=== PATIENT | female | born 1945 | race Caucasian/White ===

== ENCOUNTER 2018-04-17 10:29 | Outpatient (CLI) | payer MEDICARE | END 2018-04-17 10:30 | disposition home or self-care (01) | LOC: BICCT 10:29 | PROVIDERS: ATTEND Obstetrics & Gynecology | DX: M89.8X8 Other specified disorders of bone, other site (principal); N28.1 Cyst of kidney, acquired; I51.7 Cardiomegaly; K57.30 Diverticulosis of large intestine without perforation or abscess without bleeding; K94.09 Other complications of colostomy; R93.421 Abnormal radiologic findings on diagnostic imaging of right kidney; R93.422 Abnormal radiologic findings on diagnostic imaging of left kidney; Z90.49 Acquired absence of other specified parts of digestive tract; Z90.710 Acquired absence of both cervix and uterus | CPT/HCPCS: 74178; 82565 ==

== ENCOUNTER 2018-07-18 12:56 | Outpatient (CLI) | payer MEDICARE ==
--- NOTE | 2018-07-18 14:53 | CT ---
CT OF LUMBAR SPINE PERFORMED WITHOUT CONTRAST ENHANCEMENT: History: Low back pain right leg pain for the past 6 months. FINDINGS: The vertebral bodies are normal in height. Minimal disc narrowing is seen at L4-5. There is a spondyl olisthesis of L4 on L5 of approximately 4-5 mm with degenerative facet changes. There is no significa nt periaortic adenopathy. Vascular calcifications are noted. There is some minimal ectasia to the inf rarenal aorta but the maximum AP measurement is only 2.5 cm. T12-L1: Unremarkable. L1-2: Unremarkable. L2-3: Some disc bulge is present at this level. No significant canal or foraminal stenosis. L3-4: Mild disc bulge with borderline canal stenosis. Degenerative facet changes are present. L4-5: There is a mild degree of canal stenosis caused by the combination of degenerative facet and li gamentous hypertrophic changes and disc bulging and spondylolisthesis. L5-S1: No significant canal or foraminal narrowing. IMPRESSION: 4-5 mm spondylolisthesis of L4 on L5 causing a mild degree of canal narrowing. No significant foramin al stenosis is appreciated. POS: [facility]
== END 2018-07-18 12:57 | disposition home or self-care (01) ==
LOC: BICCT 12:56
PROVIDERS: ATTEND Nurse Practitioner Family
DX: M48.062 Spinal stenosis, lumbar region with neurogenic claudication (principal); M43.16 Spondylolisthesis, lumbar region
CPT/HCPCS: 72131

== ENCOUNTER 2018-08-23 12:21 | Inpatient (IN) | payer MEDICARE ==
[2018-08-23] MEDS ORDERED: Lisinopril 10 MG TAB ONE (13:15)
--- NOTE | 2018-08-23 15:18 | RAD ---
TWO VIEWS LEFT HIP: DATE: 08/23/2018. HISTORY: Left hip pain after a fall. FINDINGS: There is partial visualization of the right hip. There is evidence of bilateral hip osteoarthritis w ith narrowing of the superomedial aspects of each joint space. No obvious fracture is seen, and ther e is no evidence of a dislocation. Partida catheter is present in the urinary bladder, and contrast is also partially seen within the urinary bladder. Temperature probe was noted in place. Surgical cli ps overlie the left hemipelvis and medial right thigh. Vascular calcifications are seen within the i liac and femoral arteries. Findings are similar to the study on 04/08/2018. IMPRESSION: 1. Bilateral hip osteoarthritis. 2. No obvious fracture or dislocation is seen involving the left hip. POS: [facility]
[2018-08-23 17:23] LABS: Bilirubin Negative (Negative); Blood, Urine Small (Negative); Clarity CLEAR (Clear); Glucose, Urine (Dipstick) Negative (Negative); Leukocyte Moderate (Negative); Nitrite Negative (Negative); Protein, Urine (Dipstick) Negative (Neg-Trace); pH, Urine 6.5 (5.0-9.0)
[2018-08-23 17:28] LABS: Bacteria/HPF 1+ HPF (None Seen); Hyaline Casts/LPF 4-6 HYALINE CAST LPF (0-3 Hyaline); Pathc Cast-AUWi Flag 1.01 (0-2.49); Squamous Epithelial None Seen HPF (0-3)
[2018-08-23 17:32] LABS: Specific Gravity, Urine 1.053 (1.002-1.036)
--- NOTE | 2018-08-23 18:04 | RAD ---
CHEST ONE VIEW: 08/23/18 HISTORY: Chest pain. Fall with chest contusion. COMPARISON: Radiograph 02/25/10. FINDINGS: Heart size is enlarged. No pneumothorax. No large effusion. Mild contour irregularity of the right lateral 7th and 8th ribs are indeterminate for a fracture. IMPRESSION: 1. Marked cardiomegaly. 2. Right lateral 7th and 8th rib cortical irregularity are indeterminate for fracture. Clinical correlation with underlying tenderness is recommended. No evidence for pulmonary contusion, pneumotho rax or layering effusion. POS: [facility]
--- NOTE | 2018-08-23 19:14 | PRG ---
DATE OF SERVICE: 08/23/2018 SUBJECTIVE: The patient was seen in conjunction with Rebecca Reynolds. This patient was initially presenting to emergency department in [place]. The patient apparently fell this morning and her found her on the floor and she was unable to get up. She had a contusion to her chest and the ambulance was called. The patient was taken to the emergency department in [place], where she appeared to have significant left-sided neglect and left lateral gaze dysfunction. She had a CT scan of the head as well as CT angiogram, both of which were negative for major acute findings other than some lacunar infarctions of indeterminate age. The patient was subsequently transferred to this facility. The patient remains somewhat encephalopathic. She is able to answer some questions, but appears confused. She continues to have left lateral gaze deficit. She also appears to have at least distal muscle dysfunction on the left upper extremity, although she is able to move it proximally. She has poor coordination over that arm. She has inability to follow commands adequately to really assess her lower extremity function or her visual romo. Of note, the patient did have a possible kink in her right posterior vertebral artery without evidence of occlusion and this appeared to be more distal. The patient has some ecchymoses on her chest and her left upper extremity, a small skin tear on left forearm. The patient has a history of multiple chronic medical problems including mitral valve replacement, coronary artery disease with triple bypass and pacemaker placement with defibrillator in 2018. She has hypertension, COPD, reflux, and gout. At this point, it appears the patient had acute stroke with left-sided deficits and she is a bit encephalopathic. She apparently takes aspirin, although her actual medication list is not known, that was mentioned in her note from [place]. She received aspirin and lisinopril in the emergency department here. Given the extent of her deficits and her encephalopathy, prefer she be in the IMCU for now. We will try to obtain an MRI if we can with the defibrillator that is in place and we will consult Neurology. The patient will need echocardiogram as well. I am trying to get more information on the patient's medications, having some difficulty dialing out to her at this time. We will continue to try. Job ID: [id number]
[2018-08-23] MEDS ORDERED: cefTRIAXone\\ROCEPHIN 1 GM in Sodium Chloride 0.9% 100 ML IVPB SCH (20:00)
[2018-08-23] MEDS ORDERED: cefTRIAXone\\ROCEPHIN 1 GM VIAL ONE (20:09)
[2018-08-23] MEDS ORDERED: VANC IVPB PRN (22:30)
[2018-08-23] MEDS ORDERED: MERREM IVPB PRN (22:30)
[2018-08-23 23:19] VITALS: BMI 26.5
[2018-08-23] MEDS: Famotidine 20 MG TAB PO SCH (23:50)
[2018-08-23] MEDS: Vancomycin HCl 1 GM in Premix Bag 1 BAG IVPB SCH (23:56)
[2018-08-23] MEDS: Sodium Chloride 0.9% 1,000 ML IV SCH (23:58)
[2018-08-24] MEDS: MEROPENEM 1 GM/50 ML 1 GM in Premix Bag 1 BAG IVPB SCH ×2 (00:01→13:52)
--- NOTE | 2018-08-24 02:04 | HP ---
PRIMARY CARE PHYSICIAN: Gaby Humphries MD. CHIEF COMPLAINT: Left-sided facial droop, left-sided deficits. HISTORY OF PRESENT ILLNESS: Ms. Lim is a 73-year-old female, who was initially seen in the emergency room at [place] after she apparently fell this morning and her had found her on the floor and she was unable to get up. She does have some multiple contusions onto her chest, some to her face, some to left arm. She was taken to the emergency room by EMS in [place] where she appeared to have significant left-sided neglect, left lateral gaze dysfunction. She had a CT scan of the head and a CT angiogram, both were negative for major acute findings other than some lacunar infarctions of indeterminate age. The patient was then transferred to [facility] Emergency Room for admission and further management. The patient remains somewhat encephalopathic. She is able to answer questions. She is oriented to person, place, and time. She does appear somewhat confused. She continued to have left lateral gaze deficit. She has distal muscle dysfunction of the left upper extremity, although she is able to move it proximally. She does have poor coordination of that arm. She has difficulty following commands, difficult to assess her lower extremities. Visual romo; she has some deficits on the left, although it was difficult to assess the extent of dysfunction. The patient does have extensive ecchymosis on her chest, left upper extremity, and her face. She does have small skin tear on her left arm. The patient does have pertinent medical history which includes mitral valve replacement, coronary artery disease with triple bypass, pacemaker placement with defibrillator, this was done in 2018. Also pertinent for hypertension, COPD, GERD, and gout. Based on presentation, risk factors, obvious left-sided deficits, left lateral gaze deficits, she will be admitted to the [facility] for further management. PAST MEDICAL HISTORY: As above. Pertinent for gout, high cholesterol, hypertension, CAD, COPD, CHF, and GERD. PAST SURGICAL HISTORY: Positive for mitral valve replacement in 08/2017, bilateral knee replacements, rectocele, triple bypass, pacemaker defibrillator in 2018, appendectomy, hysterectomy, and tubal ligation. SOCIAL HISTORY: The patient denies any alcohol use or drug use. The patient currently uses tobacco, smokes about half a pack a day per ER records. Family at bedside. Dr. White did try to call the , was not able to get him on the phone to get a complete medical history to verify past medical history. We will continue to try to get this information. It is noted in the note in the [place] ER record that she is on Plavix. ALLERGIES: CODEINE AND MORPHINE. REVIEW OF SYSTEMS: CONSTITUTIONAL: The patient denies chills or fever. HEENT: Eyes, eye pain. The patient denies visual changes. ENT; denies rhinorrhea, sore throat, or voice changes. CARDIOVASCULAR: Denies chest pain or palpitations. RESPIRATORY: Denies cough or shortness of breath. GI: Denies any abdominal pain, constipation, diarrhea, or nausea. : Denies dysuria or frequency. MUSCULOSKELETAL: Denies back pain. She denies fall, but the patient did fall prior to presenting to the emergency room at [place]. SKIN: Does report bruising. NEUROLOGIC: Reports left-sided facial droop, left-sided motor and sensory deficits. PHYSICAL EXAMINATION: VITAL SIGNS: Blood pressure is 155/88, pulse is 89, respiratory rate is 20, temperature is 98.8, O2 saturation is 98% on room air. CONSTITUTIONAL: The patient appears nontoxic. She is alert and oriented to person, place, and time. HEAD: Normocephalic. Does have some ecchymoses to her face. EYES: Pupils are equally round and reactive to light. Entire left visual field deficit. ENT, pharynx exam is normal. Tonsil exam is normal. Mouth exam is normal. Mucous membranes are moist. NECK: Trachea is midline. No tenderness. RESPIRATORY/CHEST: Breath sounds are clear. No findings or respiratory distress. CARDIOVASCULAR: Regular rate and rhythm. Heart sounds are normal. ABDOMEN: Female. No tenderness on palpation. Bowel sounds are heard. BACK: Normal inspection. Normal range of motion. EXTREMITIES: Upper extremity motor strength is 3/5 on the left, 5/5 on the right. Radial pulses equal bilaterally. Lower extremity motor strength is 4/5 on the left, 5/5 on the right. NEUROLOGIC: The patient is oriented to person, place, and time. Speech is normal. Does appear confused intermittently. Left visual field defect mild left facial droop, 3/5 over left upper extremity strength and 4/5 left lower extremity strength, left lateral gaze deficit. SKIN: Multiple areas of ecchymosis to chest, left arm, face. Otherwise, warm and dry. No rashes noted. PERTINENT LABORATORY DATA: The patient does have a urinalysis that was conducted, specific gravity 1.053, small amount of blood, leuko esterase moderate, white blood cell count greater than 50, urine bacteria +1. This was sent off for culture. IMPRESSION: Marked cardiomegaly into right lateral seventh and eighth rib cortical irregularity. The patient has cervical spine CT, which showed motion artifact degrades detail of exam. No evidence of her fracture. Patent bilateral vertebral arteries, prominent kink involving distal right vertebral artery lacunar infarctions in each basal ganglia of indeterminate age. No focal stenosis or branch occlusion involving the [place] of [place] with vertebrobasilar system. Left hip x-ray, bilateral hip osteoarthritis. No obvious fracture. Hematology; white blood cell count is 10.6, hemoglobin is 12.5, hematocrit is 38.7, platelet count is 256. Coagulation; PT 12.9, INR is 1. Chemistry; sodium 141, potassium 4.5, chloride 107, BUN is 16, creatinine is 1.01, estimated GFR 54, glucose 114. Liver enzymes are unremarkable. Troponin x1 is undetectable. ASSESSMENT AND PLAN: 1. Left-sided deficits, left-sided mouth droop, left lateral gaze defect. We will obtain an MRI if compatible with her current pacemaker. We will ask Neurology to consult due to the fact that she is on Plavix. The patient will be placed on IMCU for close monitoring. CT of the head may need to be repeated if the patient has any changes in mental status. We will obtain an echocardiogram. 2. Urinary tract infection. We will start Rocephin. We will continue to monitor lab work. 3. We will continue to attempt to obtain the patient's home medication regimen. Hospital course will depend on clinical findings. Job ID: [id number]
[2018-08-24 04:53] LABS: #Eosinphils 0.1 thou/uL (0.0-0.7); #Lymphocytes 1.6 thou/uL (1.20-3.40); #Monocytes 0.8 thou/uL (0.11-0.59); #Neutrophils 4.5 thou/uL (1.40-6.50); %Basophils 0.3 % (0.0-1.0); %Eosinophils 1.5 % (0.0-10.0); %Lymphocytes 22.7 % (21.0-51.0); %Monocytes 10.9 % (0.0-10.0); %Neutrophils 64.6 % (42.0-75.0); Hemoglobin 11.6 g/dL (12.0-16.0); Mean Corpuscular HGB CONC 32.7 g/dL (32.0-36.0); Mean Corpuscular Hemoglobin 29.9 pg (27.0-31.0); Mean Corpuscular Volume 91.5 fL (78.0-98.0); Mean Platelet Volume 9.5 fL (7.4-10.4); Platelet Count 227 thou/uL (130-400); RBC Distribution Width 17.3 % (11.5-14.5); Red Blood Cell (RBC) Count 3.87 mill/uL (4.20-5.40); White Blood Cell (WBC) Count 6.9 thou/uL (4.8-10.8)
[2018-08-24 05:22] LABS: ALT (SGPT) 11 U/L (8-55); AST (SGOT) 15 U/L (5-34); Albumin 3.4 g/dL (3.4-4.8); Alkaline Phosphatase 120 U/L (40-150); Anion Gap 12 mmol/L (10-20); BUN (Urea Nitrogen) 11 mg/dL (9.8-20.1); Bilirubin, Total 0.7 mg/dL (0.2-1.2); Calc. Creatinine Clearance 69 mL/min (70-130); Calcium 9.6 mg/dL (7.8-10.44); Carbon Dioxide 23 mmol/L (23-31); Chloride 108 mmol/L (98-107); Cholesterol 141 mg/dl (< 200 Desired); Estimated GFR-MDRD 67; Globulin 3.2 g/dL (2.4-3.5); Glucose 95 mg/dL (83-110); HDL Cholesterol 28 mg/dL (>60 Neg Risk); LDL Cholesterol, Calculated 95 mg/dL; Potassium 3.9 mmol/L (3.5-5.1); Protein, Total 6.6 g/dL (6.0-8.3); Sodium 139 mmol/L (136-145); Triglycerides 89 mg/dL (Less than 150)
[2018-08-24] MEDS ORDERED: Aspirin 325 mg Enteric Coated Tablet PO SCH (09:00)
[2018-08-24] MEDS: Famotidine 20 MG TAB PO SCH (09:20)
[2018-08-24] MEDS: Pantoprazole 40 MG VIAL IVP SCH (09:21)
[2018-08-24] MEDS ORDERED: Aspirin 300 MG Suppository PR SCH (09:30)
--- NOTE | 2018-08-24 09:46 | PRG ---
DATE OF SERVICE: 08/24/2018 SUBJECTIVE: The patient continues to be somewhat encephalopathic, not able to answer much, although she does say hello and say that she feels fine. She cannot get much more from her than that. OBJECTIVE: VITAL SIGNS: Temperature 98.4, pulse 110 to 114, respirations 18, O2 saturation 94% on room air, and BP is 141/60. GENERAL APPEARANCE: Age-appropriate female. She is in no distress. She continues to have some spontaneous movement almost ballistic type on the left side. She appears to be breathing comfortably. HEENT: Pupils are reactive. HEART: Regular, tachycardic without murmur. LUNGS: Clear bilaterally, although she is not able to take good breaths on command. ABDOMEN: Soft, nontender, and nondistended. Positive bowel sounds. EXTREMITIES: Several areas of ecchymoses, especially on the left without significant edema. NEUROLOGICAL: The patient is encephalopathic. She has left lateral gaze defect and some left-sided neglect. She has some proximal muscle movement on the left upper extremity, but not distally. She is able to move her left lower extremity with a small amount with stimulation. LABORATORY DATA: White count 6.9, hemoglobin 11.6. Sodium 139, potassium 3.9, chloride 108, CO2 is 23, BUN 11, creatinine 0.8, and glucose 95. Lactic acid 1.6. AST 15, ALT 11. LFTs otherwise normal. TSH is 3.24. Total cholesterol 141, triglycerides 89, LDL 95. HDL 28. Urinalysis as above as, as the previous H and P indicate white count greater than 50,000 with 1+ bacteria, moderate leukocyte esterase. Blood cultures in progress. IMPRESSION AND PLAN: 1. Acute cerebrovascular accident with left lateral gaze defect and some left-sided weakness and encephalopathy. The patient has an MRI scheduled for today. I ensure that she will be able to complete that because I am sure she will be able to be still enough to get that done. Neurology consult is pending. The patient appears to be largely unchanged from last evening. I did attempt to talk to her, I tried to call her last night, got busy signals this morning, got a answering machine, hoping that he is on his way here now. 2. Dysphagia. The patient failed swallow study this morning. We will consult Speech Therapy. 3. Tachycardia, unclear etiology, likely related to the stroke itself. We will get an EKG, unclear what medications the patient was on previously. There is nothing in the record to help us other than the fact that her note from [facility] indicated she was on Plavix. I have not been able to reach her at this point, and the patient is unable to give us any additional history. 4. Fall with facial impact given the patient was on Plavix. If she were to acutely worsen, we would get an emergent repeat CT, but at this point, she appears to be otherwise stable. We will wait for Neurology and MRI. 5. Urinary tract infection. The patient was started on vancomycin and meropenem last evening, those alternatives will continue those for now. Job ID: [id number]
[2018-08-24] MEDS: Sodium Chloride 0.9% 1,000 ML IV SCH (15:18)
--- NOTE | 2018-08-24 17:53 | CON ---
DATE OF CONSULTATION: 08/24/2018 REASON FOR CONSULTATION: IMC placement. HISTORY OF PRESENT ILLNESS: The patient is a 73-year-old female who is currently in the hospital for a stroke with left-sided facial droop, expressive aphasia, and global left-sided deficit. She initially presented to the emergency room at [place] yesterday after falling to the floor and unable to get up. She was noted to have bruising on her chest. I do not think she was given tPA because of the timing. She has been started on Plavix. She is currently undergoing neurology workup including repeat CT later today. She cannot give me any history at the current time. PAST MEDICAL HISTORY: 1. Coronary artery disease. 2. COPD. 3. CHF. 4. Gastroesophageal reflux. PAST SURGICAL HISTORY: Mitral valve replacement, bilateral knee replacements, coronary artery bypass grafting surgery, pacemaker/defibrillator placement, appendectomy, hysterectomy, tubal ligation. SOCIAL HISTORY: Does not consume alcohol. She smokes about half pack per day. ALLERGIES: CODEINE, MORPHINE. FAMILY MEDICAL HISTORY: Unremarkable. REVIEW OF SYSTEMS: Not obtainable as the patient is aphasic. MEDICATIONS: As an outpatient, she was taking Dulera, atorvastatin, torsemide, amitriptyline, Aldactone, Protonix, Synthroid, iron, Plavix, aspirin, Toprol, and albuterol, and the patient is taking aspirin, Pepcid, meropenem, pantoprazole, and vancomycin. PHYSICAL EXAMINATION: VITAL SIGNS: Temperature 97.8, pulse 97, respirations 20, O2 saturation 91% on room air, blood pressure 133/74. GENERAL: She is a disheveled-appearing patient, in no distress. She cannot speak, although she tries. HEENT: She has left facial droop. NECK: No JVD. LUNGS: Clear. CARDIAC: S1, S2. Regular. ABDOMEN: Soft. EXTREMITIES: She cannot move her left arm or leg. LABORATORY DATA: White blood cell count 6.9, hematocrit 35.4, and platelet count 227. Sodium 139, potassium 3.9, chloride 108, CO2 of 23, BUN 11, creatinine 0.8, glucose 95. ASSESSMENT: Cerebrovascular accident with profound residual deficits. PLAN: Care as per the primary team. The patient is currently on antibiotics. The reasoning is not clear to me, but I will speak with the primary team about that. No further Pulmonary recommendations, we will follow. Job ID: [id number]
[2018-08-24] MEDS: Famotidine/PF 20 mg/2ml Vial SLOW IVP SCH (20:46)
--- NOTE | 2018-08-24 22:21 | CON ---
DATE OF CONSULTATION: 08/24/2018 REASON FOR REFERRAL: Left-sided weakness. PRESENT ILLNESS: This is a 73-year-old female whose found her on the floor, unable to get up. He states that she did not seem to be any more confused than usual. He states that she was conscious when he found her. He did not actually witness the fall. He noted that she seem to be weak on the left side. He also had noted that she seem to look more to the left than to the right, he says that is usual for her. She was seen at an outside hospital and transferred to [facility]. Her chronic medical problems include coronary artery disease, pacemaker and defibrillator, COPD, GERD, and gout. PAST MEDICAL HISTORY: She has high cholesterol, coronary artery disease, CHF, GERD, COPD, and hypertension and has had a triple bypass and pacemaker defibrillator. SOCIAL HISTORY: She does not drink alcohol. She smokes about half a pack per day. She is . REVIEW OF SYSTEMS: 14-point review of systems is negative except for the present illness. PHYSICAL EXAMINATION: GENERAL: She is awake, somewhat confused. VITAL SIGNS: Temperature is 97.8, pulse is 97 and regular, respiratory rate is 20, O2 saturation is 91% on room air, blood pressure 134/74. HEENT: Negative. LUNGS: Clear. HEART: No gallops. ABDOMEN: She has a colostomy. EXTREMITIES: No clubbing, cyanosis, or edema. SKIN: No rashes. JOINTS: No swelling. NEUROLOGIC: She is awake. She says she is in [place], she cannot tell me what year it is or her age. She occasionally follows commands, but is inconsistent. Cranial nerves 2 through 12 tested normally except for slight weakness of the lower left side of the face and she has a prominent left gaze preference. Motor, she moves all extremities, but not to command. She moves the right side at least antigravity strength and the left side less than that. DTRs are 2+. Toes are downgoing except the left appears to be upgoing. Sensation is grossly intact. CT of the head performed at the outside hospital is reported to be negative. IMPRESSION: Status post CVA, notes a prominent left gaze preference. We are unable to obtain MRI due to her pacemaker defibrillator. PLAN: We will get a followup CT of the head. Discussed with the patient's and discussed with patient's nurse. Job ID: [id number] MTDD
[2018-08-24] MEDS: Vancomycin HCl 1 GM in Premix Bag 1 BAG IVPB SCH (23:27)
[2018-08-24] MEDS ORDERED: Acetaminophen 1,000 MG in Premix Bag 1 BAG IVPB SCH (23:30)
[2018-08-25] MEDS: MEROPENEM 1 GM/50 ML 1 GM in Premix Bag 1 BAG IVPB SCH (00:48)
[2018-08-25 05:32] LABS: #Basophils 0.1 thou/uL (0.0-0.2); #Eosinphils 0.2 thou/uL (0.0-0.7); #Lymphocytes 1.2 thou/uL (1.20-3.40); #Monocytes 0.7 thou/uL (0.11-0.59); #Neutrophils 3.5 thou/uL (1.40-6.50); %Basophils 1.2 % (0.0-1.0); %Eosinophils 3.3 % (0.0-10.0); %Monocytes 11.7 % (0.0-10.0); %Neutrophils 61.9 % (42.0-75.0); Hemoglobin 11.3 g/dL (12.0-16.0); Mean Corpuscular Hemoglobin 30.2 pg (27.0-31.0); Mean Corpuscular Volume 91.6 fL (78.0-98.0); Mean Platelet Volume 9.8 fL (7.4-10.4); Platelet Count 214 thou/uL (130-400); RBC Distribution Width 16.8 % (11.5-14.5); Red Blood Cell (RBC) Count 3.75 mill/uL (4.20-5.40); White Blood Cell (WBC) Count 5.6 thou/uL (4.8-10.8)
[2018-08-25 05:47] LABS: ALT (SGPT) 8 U/L (8-55); AST (SGOT) 14 U/L (5-34); Alkaline Phosphatase 105 U/L (40-150); Anion Gap 11 mmol/L (10-20); BUN (Urea Nitrogen) 12 mg/dL (9.8-20.1); Bilirubin, Total 0.6 mg/dL (0.2-1.2); Calc. Creatinine Clearance 70 mL/min (70-130); Calcium 9.3 mg/dL (7.8-10.44); Carbon Dioxide 23 mmol/L (23-31); Chloride 109 mmol/L (98-107); Estimated GFR-MDRD 68; Glucose 87 mg/dL (83-110); Potassium 3.9 mmol/L (3.5-5.1); Sodium 139 mmol/L (136-145)
[2018-08-25] MEDS ORDERED: Metoprolol Tartrate 5 MG/5 ML VIAL IVP SCH (09:00)
[2018-08-25] MEDS: Sodium Chloride 0.9% 1,000 ML IV SCH (10:01)
[2018-08-25] MEDS: Aspirin 300 MG Suppository PR SCH ×2 (10:01→14:08)
[2018-08-25] MEDS: Pantoprazole 40 MG VIAL IVP SCH (10:01)
[2018-08-25] MEDS: Famotidine/PF 20 mg/2ml Vial SLOW IVP SCH ×2 (10:01→21:47)
--- NOTE | 2018-08-25 10:14 | CT ---
CT HEAD NONCONTRAST DATE: 08/25/18 HISTORY: Altered mental status. COMPARISON: 08/23/18. FINDINGS: There is no evidence of acute intracranial hemorrhage or infarct. Prominent chronic ischemic small ve ssel disease throughout the periventricular white matter is similar in appearance to the prior study. Lacunar infarct right twila is stable. No mass effect or shift of midline structures. IMPRESSION: Chronic-type findings are stable. No acute intracranial abnormalities are demonstrated. POS: [facility]
--- NOTE | 2018-08-25 13:17 | PRG ---
DATE OF SERVICE: 08/25/2018 SUBJECTIVE: This patient is better. She is now verbalizing, has no complaints. She seems to have completely recovered all of her neurologic deficit except for slight left facial droop. OBJECTIVE: VITAL SIGNS: On exam, temperature is 97.2, pulse 100, respirations 18, O2 sat 99% on 2 L, and blood pressure 153/93. HEENT: Unremarkable. NECK: No JVD. LUNGS: Clear. CARDIAC: S1 and S2, regular. ABDOMEN: Soft. EXTREMITIES: No edema. LABORATORY DATA: Significant for hematocrit of 34.4 and platelet count 214. Chloride level of 109, otherwise it looks normal. ASSESSMENT: Stroke with resolution of most of the deficit. PLAN: This patient is stable for transfer out to the stroke unit. Job ID: [id number]
[2018-08-25] MEDS ORDERED: Aspirin 325 MG TAB PO SCH (14:15)
[2018-08-25] MEDS ORDERED: Metoprolol Tartrate 5 MG/5 ML VIAL ONE (16:32)
--- NOTE | 2018-08-25 16:57 | PRG ---
DATE OF SERVICE: 08/25/2018 SUBJECTIVE: The patient is much more awake today. She denies any specific complaints and she denies any pain in her chest. She does not recall meeting me. Her sister and [id number] are in the room with her today. Her sister tells me that the patient and her live very remotely and have not allowed any family members to come visit them in a number of years. They also report that 6 months ago, the patient was doing well, but recently has been having a lot of falls that have become problematic. The nurse also reports that the patient's presented today and had a strong odor of urine and indicated that they have a number of cats in their home. OBJECTIVE: VITAL SIGNS: Temperature is 98.0, pulse 109, respirations 19, O2 saturation 98% on room air, and blood pressure 165/85. GENERAL APPEARANCE: Age-appropriate female. She is definitely much more awake and alert today. She is actually conversant and interactive. She is largely appropriate in her conversation, but wants to talk about issues from months ago and has a difficult time with redirection. Her sister reports that she feels like she is only about longterm back to her normal self at this time. HEENT: PERRL. She has no OP lesions. Small bruise on the right lateral upper lip. HEART: Regular rate and rhythm. She is mildly tachycardic. She has ecchymoses over her chest area. LUNGS: Clear bilaterally. ABDOMEN: Soft, nontender, and nondistended. Positive bowel sounds. MUSCULOSKELETAL: She has no cyanosis, clubbing, or edema. She does have slight tenderness to palpation on her chest area, especially over the right anterior rib cage. NEURO: The patient actually has pretty good cognition, although not normal. She has good range of motion and strength in her left upper extremity and in her left lower extremity, which are a significant improvement. Her extraocular movements are generally back to normal range as well. Repeat brain CT from this morning shows chronic findings with no acute stroke. There are lacunar infarcts in the right twila, which appear to be stable and small vascular disease. IMPRESSION AND PLAN: 1. The patient appeared to have acute stroke with significant deficits, which appear to be largely resolved at this point. She just has some persistent confusion, but the encephalopathy portion appears to be much improved. She had an EEG this morning and Neurology continues to follow. She has passed her swallow study today and we resumed statins and aspirin and Plavix along with her other medications. 2. History of prosthetic heart valve. Continue Plavix and aspirin. 3. Hypothyroidism. Continue with the Synthroid. 4. Dysphagia, resolved. 5. Tachycardia. The patient is on high doses of metoprolol at home, now that she is on p.o., so we will go ahead and resume that as we gave her IV Lopressor as needed throughout the day today. 6. Fall with facial impact. She has no evidence of intracranial bleeding. She does have some mild chest trauma. Continue with Plavix and aspirin. We will continue with physical therapy. 7. Urinary tract infection. The patient grew relatively low counts of Klebsiella oxytoca. It is not clear if this represents true infection. She has had some pretty broad-spectrum antibiotics. We will go ahead and discontinue those now. 8. Disposition. It sounds like there is some concern for the patient's home situation per the family. We will need Case Management/Social Work to get involved and see if we can elucidate that situation better. Job ID: [id number]
--- NOTE | 2018-08-25 17:55 | PRG ---
DATE OF SERVICE: 08/25/2018 NEUROLOGY FOLLOWUP NOTE. PRESENT ILLNESS: Followup for altered mental status. Her is present. He states that she is back to her normal self today. She is no longer having the gaze preference to the left side and she is moving all extremities. She is currently undergoing an EEG. PHYSICAL EXAMINATION: VITAL SIGNS: Temperature 98, pulse is 109, respiratory rate 19, O2 saturations 98, and blood pressure 165/85. HEENT: Negative. Motor, she moves all extremities well. DTRs 2+. LUNGS: Clear. HEART: Regular. Note that she has a pacemaker and a defibrillator. DIAGNOSTIC STUDIES: She had an EEG, which she is undergoing right now and it does not show any seizure activity. A CAT scan of her head without contrast shows extensive chronic small-vessel disease and old strokes, no acute strokes were seen. Note that the patient has a pacemaker and defibrillator and cannot have an MRI. IMPRESSION: Status post suspected small stroke, which gave her a left gaze preference. She has now resolved. Alternatively, it may have been a seizure; however, we do not have any clear evidence that it was a seizure, there was no tongue biting or incontinence associated with this, and when she was found by her , she was awake. PLAN: We will treat her as a small CVA. No MRI because of her pacemaker. Continue with the one aspirin a day and Plavix. Discussed with the patient and her . No further neurologic recommendations at this time. Please call the neurologist on-call tomorrow if there is any further neurological input required. Job ID: [id number]
[2018-08-25 22:38] LABS: Vancomycin, Trough 10.3 ug/mL
[2018-08-26] MEDS: Sodium Chloride 0.9% 1,000 ML IV SCH ×2 (02:04→17:24)
[2018-08-26] MEDS: Levothyroxine 175 MCG TAB PO SCH (05:29)
[2018-08-26 05:59] LABS: #Eosinphils 0.3 thou/uL (0.0-0.7); #Monocytes 0.9 thou/uL (0.11-0.59); #Neutrophils 7.7 thou/uL (1.40-6.50); %Basophils 0.1 % (0.0-1.0); %Eosinophils 2.7 % (0.0-10.0); %Lymphocytes 10.4 % (21.0-51.0); %Monocytes 8.6 % (0.0-10.0); %Neutrophils 78.3 % (42.0-75.0); Hemoglobin 12.6 g/dL (12.0-16.0); Mean Corpuscular HGB CONC 32.1 g/dL (32.0-36.0); Mean Corpuscular Hemoglobin 29.8 pg (27.0-31.0); Mean Corpuscular Volume 92.7 fL (78.0-98.0); Mean Platelet Volume 9.2 fL (7.4-10.4); Platelet Count 255 thou/uL (130-400); RBC Distribution Width 16.6 % (11.5-14.5); Red Blood Cell (RBC) Count 4.22 mill/uL (4.20-5.40); White Blood Cell (WBC) Count 9.9 thou/uL (4.8-10.8)
[2018-08-26 06:23] LABS: ALT (SGPT) 13 U/L (8-55); AST (SGOT) 19 U/L (5-34); Albumin 3.6 g/dL (3.4-4.8); Alkaline Phosphatase 126 U/L (40-150); Anion Gap 13 mmol/L (10-20); BUN (Urea Nitrogen) 9 mg/dL (9.8-20.1); Bilirubin, Total 0.8 mg/dL (0.2-1.2); Calc. Creatinine Clearance 72 mL/min (70-130); Calcium 9.6 mg/dL (7.8-10.44); Carbon Dioxide 20 mmol/L (23-31); Chloride 109 mmol/L (98-107); Estimated GFR-MDRD 70; Glucose 155 mg/dL (83-110); Protein, Total 6.6 g/dL (6.0-8.3); Sodium 138 mmol/L (136-145)
--- NOTE | 2018-08-26 09:06 | PDOC.PN ---
- Subjective Encounter Start Date: 08/26/18 Encounter Start Time: 13:30 Subjective: Patient without complaint. Pleasantly confused though this may be her -: baseline. - Objective MAR Reviewed: Yes Vital Signs & Weight: Vital Signs (12 hours) Temp Pulse Resp BP Pulse Ox 08/26/18 07:34 97.4 F L 111 H 20 179/109 H 90 L 08/26/18 04:00 98.6 F 103 H 18 185/88 H 92 L 08/26/18 03:48 94 L 08/26/18 00:00 98.2 F 108 H 18 178/91 H 94 L Weight Admit Weight 159 lb 6.4 oz Weight 159 lb 6.4 oz I&O: 08/25/18 08/26/18 08/27/18 06:59 06:59 06:59 Intake Total 1750 2300 Output Total 375 2270 Balance 1375 30 Result Diagrams: 08/26/18 05:42 08/26/18 05:42 Phys Exam - Physical Examination Constitutional: NAD HEENT: moist MMs Respiratory: no wheezing, no rales, no rhonchi Cardiovascular: RRR, no significant murmur Gastrointestinal: soft, positive bowel sounds Neurological: non-focal, moves all 4 limbs No longer neglecting left side Psychiatric: normal affect Deviation from normal: oriented to person, confused to location and date Dx/Plan (1) CVA (cerebral vascular accident) Code(s): I63.9 - CEREBRAL INFARCTION, UNSPECIFIED Status: Acute (2) Recurrent falls Code(s): R29.6 - REPEATED FALLS Status: Acute (3) Hx of prosthetic heart valve Status: Chronic Comment: Mitrial Valve Replacement (4) CAD (coronary artery disease) Code(s): I25.10 - ATHSCL HEART DISEASE OF [place] CORONARY ARTERY W/O ANG PCTRS Status: Chronic Comment: Hx of CABG, Hx of Pacemaker and Defibrillator (5) Hypertension Code(s): I10 - ESSENTIAL (PRIMARY) HYPERTENSION Status: Chronic Comment: Allowing permissive hypertension, prn for severe elevations, home Metoprolol and diuretics restarted already (6) COPD (chronic obstructive pulmonary disease) Status: Chronic (7) GERD (gastroesophageal reflux disease) Code(s): K21.9 - GASTRO-ESOPHAGEAL REFLUX DISEASE WITHOUT ESOPHAGITIS Status: Chronic (8) Gout Code(s): M10.9 - GOUT, UNSPECIFIED Status: Chronic (9) UTI (urinary tract infection) Status: Acute Comment: Antibiotics completed (10) Tachycardia Code(s): R00.0 - TACHYCARDIA, UNSPECIFIED Status: Acute Comment: Patient tachycardic since admit, EKG shows paced rhythm atrial and ventricular spikes. Will have pacemaker inspected as may be the source of the tachycardia. - Plan cont current plan of care, PT/OT, DVT proph w/SCDs Patient stable for rehab vs. SNF * . - Discharge Day Encounter end time: 14:00 Pulmonology Consult: Meds - Medications MAR Reviewed: Yes Medications: Current Medications Aspirin (Aspirin Chewable) 81 mg PO DAILY [facility] Atorvastatin Calcium (Lipitor) 80 mg PO DAILY [facility] Clopidogrel Bisulfate (Plavix) 75 mg PO DAILY [facility] Famotidine (Pepcid) 20 mg SLOW IVP BID [facility] Last Admin: 08/25/18 21:47 Dose: 20 mg Sodium Chloride (Normal Saline 0.9%) 1,000 mls @ 60 mls/hr IV .[id number] [facility] Last Admin: 08/26/18 02:04 Dose: 1,000 mls Levothyroxine Sodium (Synthroid) 175 mcg PO 0600 [facility] Last Admin: 08/26/18 05:29 Dose: 175 mcg Metoprolol Succinate (Toprol Xl) 100 mg PO BID [facility] Last Admin: 08/25/18 21:47 Dose: 100 mg Miscellaneous Medication (Pharmacy To Dose) 1 each IVPB PRN PRN PRN Reason: UTI Pantoprazole Sodium (Protonix) 40 mg PO DAILY [facility] Sodium Chloride (Flush - Normal Saline) 10 ml IVF PRN PRN PRN Reason: Saline Flush - Allergies Allergies/Adverse Reactions: Allergies Allergy/AdvReac Type Severity Reaction Status Date / Time codeine Allergy Verified 08/23/18 23:12 morphine Allergy Verified 08/23/18 23:12
[2018-08-26] MEDS: Clopidogrel Bisulfate 75 MG TAB PO SCH (09:38)
[2018-08-26] MEDS: Atorvastatin Calcium 40 MG TAB PO SCH (09:38)
[2018-08-26] MEDS: Famotidine/PF 20 mg/2ml Vial SLOW IVP SCH ×2 (09:38→21:52)
[2018-08-26] MEDS: Pantoprazole 40 MG GRANULES PACKET PO SCH (09:39)
[2018-08-26] MEDS ORDERED: Non-Formulary Item 1 EACH (Albuterol Sulfate [Albuterol Sulfate Neb] 0.63 MG) NEB SCH (12:00)
[2018-08-26] MEDS: Torsemide 20 MG TAB PO SCH ×3 (13:12→21:51)
--- NOTE | 2018-08-26 13:44 | EEG ---
Referring Physician: DR. JONI BANUELOS EEG # [id number] TEST TYPE: ROUTINE PORTABLE INPATIENT REPORT: AN EEG USING THE INTERNATIONAL TEN-TWENTY SYSTEM OF ELECTRODE PLACEMENT WAS PERFORMED. The background rhythm consists of regular 8-9 hertz Alpha which is attenuated by eye opening. There is a great deal of eye movement and muscle artifact seen during the record. Photic stimulation and hyperventilation produced no abnormalities. There is no focal slowing nor epileptiform activity. IMPRESSION: NORMAL EEG WHILE AWAKE AND DROWSY. Purchasing Clerk: VLADIMIR Human Resources Associate: EEG.NEGRO CURRAN
[2018-08-26] MEDS: Albuterol Sulfate 1.25 MG/3 ML NEB NEB SCH ×3 (13:48→23:11)
--- NOTE | 2018-08-26 17:22 | EKG ---
Test Reason : Blood Pressure : / mmHG Vent. Rate : 112 BPM Atrial Rate : 112 BPM P-R Int : 132 ms QRS Dur : 148 ms QT Int : 372 ms P-R-T Axes : 061 -43 089 degrees QTc Int : 507 ms Electronic ventricular pacemaker When compared with ECG of 24-AUG-2018 08:34, (Unconfirmed) No significant change was found Confirmed by DR. Joanna RICH ([id number]) on 08/26/2018 5:22:14 PM Referred By: [place] Confirmed By:DR. Joanna RICH
[2018-08-26] MEDS: Mometasone/Formoterol 120 PUFF INHALER INH SCH (19:05)
[2018-08-26] MEDS ORDERED: Non-Formulary Item 1 EACH (Amitriptyline Hcl [Elavil] 50 MG) PO SCH (21:00)
[2018-08-26] MEDS ORDERED: Non-Formulary Item 1 EACH (Ferrous Sulfate [Iron] 325 MG) PO SCH (21:00)
[2018-08-26] MEDS: Amitriptyline HCl 25 MG TAB PO SCH (21:51)
[2018-08-26] MEDS: Ferrous Sulfate 325 MG TAB PO SCH (21:52)
[2018-08-27 05:42] LABS: #Eosinphils 0.2 thou/uL (0.0-0.7); #Lymphocytes 1.5 thou/uL (1.20-3.40); #Monocytes 0.9 thou/uL (0.11-0.59); %Basophils 0.6 % (0.0-1.0); %Eosinophils 3.6 % (0.0-10.0); %Lymphocytes 22.3 % (21.0-51.0); %Monocytes 13.2 % (0.0-10.0); %Neutrophils 60.3 % (42.0-75.0); Hemoglobin 11.9 g/dL (12.0-16.0); Mean Corpuscular HGB CONC 33.3 g/dL (32.0-36.0); Mean Corpuscular Hemoglobin 30.4 pg (27.0-31.0); Mean Corpuscular Volume 91.3 fL (78.0-98.0); Mean Platelet Volume 9.6 fL (7.4-10.4); Platelet Count 226 thou/uL (130-400); RBC Distribution Width 16.6 % (11.5-14.5); Red Blood Cell (RBC) Count 3.91 mill/uL (4.20-5.40); White Blood Cell (WBC) Count 6.7 thou/uL (4.8-10.8)
[2018-08-27 06:07] LABS: ALT (SGPT) 12 U/L (8-55); AST (SGOT) 16 U/L (5-34); Albumin 3.3 g/dL (3.4-4.8); Alkaline Phosphatase 111 U/L (40-150); Anion Gap 12 mmol/L (10-20); BUN (Urea Nitrogen) 11 mg/dL (9.8-20.1); Calc. Creatinine Clearance 50 mL/min (70-130); Calcium 9.5 mg/dL (7.8-10.44); Carbon Dioxide 29 mmol/L (23-31); Chloride 101 mmol/L (98-107); Estimated GFR-MDRD 45; Globulin 3.3 g/dL (2.4-3.5); Glucose 100 mg/dL (83-110); Protein, Total 6.6 g/dL (6.0-8.3); Sodium 139 mmol/L (136-145)
[2018-08-27 06:11] LABS: Potassium 2.9 mmol/L (3.5-5.1)
[2018-08-27] MEDS ORDERED: Potassium Chloride 20 MEQ TAB PO SCH (06:30)
[2018-08-27] MEDS: Albuterol Sulfate 1.25 MG/3 ML NEB NEB SCH ×3 (06:38→19:24)
[2018-08-27] MEDS: Mometasone/Formoterol 120 PUFF INHALER INH SCH ×2 (06:41→19:24)
[2018-08-27] MEDS: Levothyroxine 175 MCG TAB PO SCH (06:53)
--- NOTE | 2018-08-27 09:01 | PDOC.PN ---
- Subjective Encounter Start Date: 08/27/18 Encounter Start Time: 10:00 Subjective: Patient much clearer today. Keeps forgetting name of this hospital, -: but remembers the year and situation. - Objective MAR Reviewed: Yes Vital Signs & Weight: Vital Signs (12 hours) Temp Pulse Resp BP Pulse Ox 08/27/18 07:46 98.5 F 97 18 160/71 H 92 L 08/27/18 06:42 91 L 08/27/18 06:38 93 16 91 L 08/27/18 04:00 97.5 F L 86 19 129/61 92 L 08/27/18 00:00 98.3 F 92 19 103/57 L 94 L 08/26/18 23:11 87 16 92 L Weight Admit Weight 159 lb 6.4 oz Weight 159 lb 6.4 oz I&O: 08/26/18 08/27/18 08/28/18 06:59 06:59 06:59 Intake Total 2300 890 Output Total 2270 Balance 30 890 Result Diagrams: 08/27/18 05:08 08/27/18 05:07 Phys Exam - Physical Examination Constitutional: NAD HEENT: moist MMs Respiratory: no wheezing, no rales, no rhonchi Cardiovascular: RRR, no significant murmur Gastrointestinal: soft, positive bowel sounds Musculoskeletal: no edema Neurological: non-focal, moves all 4 limbs Psychiatric: normal affect Deviation from normal: A&O x2 Dx/Plan (1) CVA (cerebral vascular accident) Code(s): I63.9 - CEREBRAL INFARCTION, UNSPECIFIED Status: Acute Comment: Symptoms mostly resolved (2) Recurrent falls Code(s): R29.6 - REPEATED FALLS Status: Acute (3) Hx of prosthetic heart valve Status: Chronic Comment: Mitrial Valve Replacement (4) CAD (coronary artery disease) Code(s): I25.10 - ATHSCL HEART DISEASE OF [place] CORONARY ARTERY W/O ANG PCTRS Status: Chronic Comment: Hx of CABG, Hx of Pacemaker and Defibrillator (5) Hypertension Code(s): I10 - ESSENTIAL (PRIMARY) HYPERTENSION Status: Chronic Comment: Allowing permissive hypertension, prn for severe elevations, home Metoprolol and diuretics restarted already (6) COPD (chronic obstructive pulmonary disease) Status: Chronic (7) GERD (gastroesophageal reflux disease) Code(s): K21.9 - GASTRO-ESOPHAGEAL REFLUX DISEASE WITHOUT ESOPHAGITIS Status: Chronic (8) Gout Code(s): M10.9 - GOUT, UNSPECIFIED Status: Chronic (9) UTI (urinary tract infection) Status: Acute Comment: Only 3 days of abx looking back. Will give another 6 days of Omnicef (10) Tachycardia Code(s): R00.0 - TACHYCARDIA, UNSPECIFIED Status: Resolved Comment: Tachycardia resolved. Uncertain eitiology. No increased WBC, but suspect UTI not fully treated so will start Omnicef for 6 more days. - Plan cont current plan of care, continue antibiotics, PT/OT O2 sats dropped a bit, but still stable on RA. Will check CXR and BNP. -: Suspect has retained some fluid as diuretics were not restarted till yest. -: Will give extra dose Lasix. Repleting Potassium. * . - Discharge Day Encounter end time: 10:30 Pulmonology Consult: Meds - Medications MAR Reviewed: Yes Medications: Current Medications Albuterol Sulfate (Albuterol Sulfate) 0.63 mg NEB [id number] [facility] Last Admin: 08/27/18 12:57 Dose: 0.63 mg Amitriptyline HCl (Elavil) 50 mg PO HS [facility] Last Admin: 08/26/18 21:51 Dose: 50 mg Aspirin (Aspirin Chewable) 81 mg PO DAILY [facility] Last Admin: 08/27/18 10:30 Dose: 81 mg Atorvastatin Calcium (Lipitor) 80 mg PO DAILY [facility] Last Admin: 08/27/18 10:30 Dose: 80 mg Cefdinir (Omnicef) 300 mg PO BID [facility] Stop: 09/02/18 09:01 Last Admin: 08/27/18 10:29 Dose: 300 mg Clopidogrel Bisulfate (Plavix) 75 mg PO DAILY [facility] Last Admin: 08/27/18 10:30 Dose: 75 mg Famotidine (Pepcid) 20 mg SLOW IVP BID [facility] Last Admin: 08/27/18 10:29 Dose: 20 mg Ferrous Sulfate (Feosol) 325 mg PO BID [facility] Last Admin: 08/27/18 10:30 Dose: 325 mg Sodium Chloride (Normal Saline 0.9%) 1,000 mls @ 60 mls/hr IV .[id number] [facility] Last Admin: 08/27/18 10:40 Dose: Not Given Levothyroxine Sodium (Synthroid) 175 mcg PO 0600 [facility] Last Admin: 08/27/18 06:53 Dose: 175 mcg Metoprolol Succinate (Toprol Xl) 100 mg PO BID [facility] Last Admin: 08/27/18 10:31 Dose: 100 mg Mometasone Furoate/Formoterol Fumar (Dulera 100 Mcg/5 Mcg Inhaler) 2 puff INH BID-RT [facility] Last Admin: 08/27/18 06:41 Dose: 2 puff Pantoprazole Sodium (Protonix) 40 mg PO DAILY [facility] Last Admin: 08/27/18 10:30 Dose: 40 mg Quetiapine Fumarate (Seroquel) 50 mg PO BID [facility] Last Admin: 08/27/18 10:31 Dose: 50 mg Sodium Chloride (Flush - Normal Saline) 10 ml IVF PRN PRN PRN Reason: Saline Flush Spironolactone (Aldactone) 25 mg PO DAILY [facility] Last Admin: 08/27/18 10:30 Dose: 25 mg Torsemide (Demadex) 20 mg PO QID [facility] Last Admin: 08/27/18 10:30 Dose: 20 mg Tramadol HCl (Ultram) 50 mg PO Q6H PRN PRN Reason: Pain - Allergies Allergies/Adverse Reactions: Allergies Allergy/AdvReac Type Severity Reaction Status Date / Time codeine Allergy Verified 08/23/18 23:12 morphine Allergy Verified 08/23/18 23:12
--- NOTE | 2018-08-27 09:28 | RAD ---
RADIOGRAPH CHEST 1 VIEW: HISTORY: 73-year-old female with hypoxemia. FINDINGS: The thoracic aorta is tortuous and ectatic. There is no evidence of air space density, pneumothorax, or pulmonary edema. The lateral costophrenic angles are sharp. There is a left subclavian multi-yadi d AICD. There are sternotomy wires, and multiple surgical clips overlying the mediastinum and cardiac shadow. IMPRESSION: 1) No acute pulmonary findings. 2) Ectasia of thoracic aorta. 3) Automatic implantable cardioverter/defibrillator. 4) Evidence of previous open heart surgery. paula POS: SUZI
[2018-08-27] MEDS: Famotidine/PF 20 mg/2ml Vial SLOW IVP SCH ×2 (10:29→22:35)
[2018-08-27] MEDS: Cefdinir 300 MG CAP PO SCH ×2 (10:29→22:35)
[2018-08-27] MEDS: Pantoprazole 40 MG GRANULES PACKET PO SCH (10:30)
[2018-08-27] MEDS: Clopidogrel Bisulfate 75 MG TAB PO SCH (10:30)
[2018-08-27] MEDS: Ferrous Sulfate 325 MG TAB PO SCH ×2 (10:30→22:35)
[2018-08-27] MEDS: Atorvastatin Calcium 40 MG TAB PO SCH (10:30)
[2018-08-27] MEDS: Spironolactone 25 MG TAB PO SCH (10:30)
[2018-08-27] MEDS: Torsemide 20 MG TAB PO SCH ×4 (10:30→22:34)
[2018-08-27] MEDS: Sodium Chloride 0.9% 1,000 ML IV SCH ×2 (10:40→13:12)
[2018-08-27] MEDS ORDERED: traMADol HCl 50 MG TAB PO PRN (11:36)
[2018-08-27] MEDS ORDERED: Furosemide 40 MG/4 ML VIAL SLOW IVP SCH (13:30)
[2018-08-27] MEDS: Amitriptyline HCl 25 MG TAB PO SCH (22:34)
[2018-08-28] MEDS: Albuterol Sulfate 1.25 MG/3 ML NEB NEB SCH ×4 (00:02→19:40)
[2018-08-28] MEDS: Torsemide 20 MG TAB PO SCH ×5 (01:43→17:04)
[2018-08-28] MEDS: Levothyroxine 175 MCG TAB PO SCH (05:57)
[2018-08-28] MEDS: Sodium Chloride 0.9% 1,000 ML IV SCH (05:57)
[2018-08-28 06:24] LABS: Anion Gap 11 mmol/L (10-20); BUN (Urea Nitrogen) 16 mg/dL (9.8-20.1); Calc. Creatinine Clearance 38 mL/min (70-130); Calcium 9.5 mg/dL (7.8-10.44); Carbon Dioxide 31 mmol/L (23-31); Chloride 100 mmol/L (98-107); Estimated GFR-MDRD 34; Glucose 122 mg/dL (83-110); Potassium 3.3 mmol/L (3.5-5.1); Sodium 139 mmol/L (136-145)
[2018-08-28] MEDS: Mometasone/Formoterol 120 PUFF INHALER INH SCH ×2 (06:42→19:54)
[2018-08-28] MEDS ORDERED: Furosemide 40 MG/4 ML VIAL SLOW IVP SCH (07:15)
[2018-08-28] MEDS ORDERED: Potassium Chloride 20 MEQ TAB PO SCH (07:15)
--- NOTE | 2018-08-28 07:17 | PDOC.PN ---
- Subjective Encounter Start Date: 08/28/18 Encounter Start Time: 09:15 Subjective: Patient without complaints overnight. No SOB/cough. Confusion -: continues to improve. - Objective MAR Reviewed: Yes Vital Signs & Weight: Vital Signs (12 hours) Temp Pulse Resp BP Pulse Ox 08/28/18 06:42 95 08/28/18 06:40 90 16 95 08/28/18 03:43 96.5 F L 94 16 141/66 H 98 08/28/18 00:02 85 16 93 L 08/27/18 23:01 96.2 F L 102 H 16 124/80 94 L 08/27/18 20:20 97 08/27/18 19:25 97.7 F 109 H 16 132/73 97 Weight Admit Weight 159 lb 6.4 oz Weight 159 lb 6.4 oz I&O: 08/27/18 08/28/18 08/29/18 06:59 06:59 06:59 Intake Total 890 2473 Output Total 1000 Balance 890 1473 Result Diagrams: 08/27/18 05:08 08/28/18 05:26 Phys Exam - Physical Examination Constitutional: NAD HEENT: moist MMs Respiratory: no wheezing, no rales, no rhonchi Cardiovascular: RRR, no significant murmur Musculoskeletal: no edema Neurological: non-focal, moves all 4 limbs Psychiatric: normal affect Dx/Plan (1) CVA (cerebral vascular accident) Code(s): I63.9 - CEREBRAL INFARCTION, UNSPECIFIED Status: Acute Comment: Symptoms mostly resolved (2) Recurrent falls Code(s): R29.6 - REPEATED FALLS Status: Acute (3) Hx of prosthetic heart valve Status: Chronic Comment: Mitrial Valve Replacement (4) CAD (coronary artery disease) Code(s): I25.10 - ATHSCL HEART DISEASE OF [place] CORONARY ARTERY W/O ANG PCTRS Status: Chronic Comment: Hx of CABG, Hx of Pacemaker and Defibrillator (5) Hypertension Code(s): I10 - ESSENTIAL (PRIMARY) HYPERTENSION Status: Chronic Comment: Allowing permissive hypertension, prn for severe elevations, home Metoprolol and diuretics restarted already (6) COPD (chronic obstructive pulmonary disease) Status: Chronic (7) GERD (gastroesophageal reflux disease) Code(s): K21.9 - GASTRO-ESOPHAGEAL REFLUX DISEASE WITHOUT ESOPHAGITIS Status: Chronic (8) Gout Code(s): M10.9 - GOUT, UNSPECIFIED Status: Chronic (9) UTI (urinary tract infection) Status: Acute Comment: Only 3 days of abx looking back. Will give another 6 days of Omnicef (10) Tachycardia Code(s): R00.0 - TACHYCARDIA, UNSPECIFIED Status: Resolved Comment: Tachycardia resolved. Uncertain eitiology. No increased WBC, but suspect UTI not fully treated so will start Omnicef for 6 more days. - Plan cont current plan of care, continue antibiotics, PT/OT, DVT proph w/SCDs Accidenally left IV fluids going yesterday. D/C'd and another dose of Lasix -: ordered. Awaiting rehab placement. * . - Discharge Day Encounter end time: 09:30
[2018-08-28] MEDS: Ferrous Sulfate 325 MG TAB PO SCH ×2 (09:45→21:03)
[2018-08-28] MEDS: Pantoprazole 40 MG GRANULES PACKET PO SCH (09:45)
[2018-08-28] MEDS: Spironolactone 25 MG TAB PO SCH (09:45)
[2018-08-28] MEDS: Atorvastatin Calcium 40 MG TAB PO SCH (09:45)
[2018-08-28] MEDS: Clopidogrel Bisulfate 75 MG TAB PO SCH (09:45)
[2018-08-28] MEDS: Cefdinir 300 MG CAP PO SCH (09:45)
[2018-08-28] MEDS: Famotidine/PF 20 mg/2ml Vial SLOW IVP SCH (09:46)
[2018-08-28] MEDS: Amitriptyline HCl 25 MG TAB PO SCH (21:03)
[2018-08-29] MEDS: Torsemide 20 MG TAB PO SCH ×4 (00:40→17:45)
[2018-08-29] MEDS: Cefdinir 300 MG CAP PO SCH ×2 (00:40→08:39)
[2018-08-29] MEDS: Albuterol Sulfate 1.25 MG/3 ML NEB NEB SCH ×3 (00:59→14:12)
[2018-08-29] MEDS: Levothyroxine 175 MCG TAB PO SCH (05:31)
[2018-08-29] MEDS: Mometasone/Formoterol 120 PUFF INHALER INH SCH (08:03)
[2018-08-29] MEDS: Ferrous Sulfate 325 MG TAB PO SCH (08:39)
[2018-08-29] MEDS: Atorvastatin Calcium 40 MG TAB PO SCH (08:39)
[2018-08-29] MEDS: Clopidogrel Bisulfate 75 MG TAB PO SCH (08:39)
[2018-08-29] MEDS: Spironolactone 25 MG TAB PO SCH (08:40)
[2018-08-29] MEDS: Pantoprazole 40 MG GRANULES PACKET PO SCH (08:40)
--- NOTE | 2018-08-29 08:57 | PDOC.PN ---
- Subjective Encounter Start Date: 08/29/18 Encounter Start Time: 10:00 Subjective: Patient a little sleepy this morning. Breathing well. No complaints. - Objective MAR Reviewed: Yes Vital Signs & Weight: Vital Signs (12 hours) Temp Pulse Resp BP Pulse Ox 08/29/18 08:04 91 16 08/29/18 07:43 98.5 F 98 18 98/54 L 97 08/29/18 04:00 97.6 F 92 19 106/51 L 99 08/29/18 00:59 101 H 16 87 L 08/29/18 00:00 99.3 F 103 H 19 119/56 L 92 L Weight Admit Weight 159 lb 6.4 oz Weight 159 lb 6.4 oz I&O: 08/28/18 08/29/18 08/30/18 06:59 06:59 06:59 Intake Total 2473 300 Output Total 1000 700 Balance 1473 -400 Result Diagrams: 08/27/18 05:08 08/28/18 05:26 Phys Exam - Physical Examination Constitutional: NAD HEENT: moist MMs Respiratory: no wheezing, no rales, no rhonchi Cardiovascular: RRR, no significant murmur Gastrointestinal: soft, positive bowel sounds Musculoskeletal: no edema Neurological: non-focal, moves all 4 limbs Psychiatric: normal affect, A&O x 3 Dx/Plan (1) CVA (cerebral vascular accident) Code(s): I63.9 - CEREBRAL INFARCTION, UNSPECIFIED Status: Acute Comment: Symptoms mostly resolved (2) Recurrent falls Code(s): R29.6 - REPEATED FALLS Status: Acute (3) Hx of prosthetic heart valve Status: Chronic Comment: Mitrial Valve Replacement (4) CAD (coronary artery disease) Code(s): I25.10 - ATHSCL HEART DISEASE OF [place] CORONARY ARTERY W/O ANG PCTRS Status: Chronic Comment: Hx of CABG, Hx of Pacemaker and Defibrillator (5) Hypertension Code(s): I10 - ESSENTIAL (PRIMARY) HYPERTENSION Status: Chronic Comment: Allowing permissive hypertension, prn for severe elevations, home Metoprolol and diuretics restarted already (6) COPD (chronic obstructive pulmonary disease) Status: Chronic (7) GERD (gastroesophageal reflux disease) Code(s): K21.9 - GASTRO-ESOPHAGEAL REFLUX DISEASE WITHOUT ESOPHAGITIS Status: Chronic (8) Gout Code(s): M10.9 - GOUT, UNSPECIFIED Status: Chronic (9) UTI (urinary tract infection) Status: Acute Comment: Only 3 days of abx looking back. Will give another 6 days of Omnicef (10) Tachycardia Code(s): R00.0 - TACHYCARDIA, UNSPECIFIED Status: Resolved Comment: Tachycardia resolved. Uncertain eitiology. No increased WBC, but suspect UTI not fully treated so will start Omnicef for 6 more days. - Plan cont current plan of care, continue antibiotics, PT/OT awaiting rehab/snf placement * . - Discharge Day Encounter end time: 10:20
[2018-08-29] MEDS ORDERED: Famotidine 20 MG TAB PO SCH (09:00)
[2018-08-29 15:50] VITALS: BP 98/50; TEMP 97.7
[2018-08-29] MEDS ORDERED: Albuterol Sulfate 2.5 mg/3 ml Neb NEB SCH (19:00)
--- NOTE | 2018-08-29 19:26 | EKG ---
Test Reason : ROUTINE Blood Pressure : / mmHG Vent. Rate : 112 BPM Atrial Rate : 112 BPM P-R Int : 138 ms QRS Dur : 136 ms QT Int : 368 ms P-R-T Axes : 056 -73 091 degrees QTc Int : 502 ms Atrial-sensed ventricular-paced rhythm Abnormal ECG When compared with ECG of 18-FEB-2010 13:29, Vent. rate has increased BY 7 BPM Confirmed by PIOTR HERNANDEZ ([id number]) on 08/29/2018 7:26:13 PM Referred By: BAR Confirmed By:PIOTR HERNANDEZ
--- NOTE | 2018-08-30 04:42 | DIS ---
DATE OF ADMISSION: 08/23/2018 DATE OF DISCHARGE: 08/29/2018 PRIMARY CARE PHYSICIAN: Gaby Humphries MD REASON FOR ADMISSION: Left-sided facial droop. DIAGNOSES AT DISCHARGE: 1. Acute ischemic cerebrovascular accident with symptoms resolved. 2. Recurrent falls. 3. History of prosthetic heart valve. 4. Coronary artery disease. 5. Systolic congestive heart failure, not in exacerbation. 6. Hypernatremia, resolved. 7. Chronic obstructive pulmonary disease. 8. Gastroesophageal reflux disease. 9. Gout. 10. Urinary tract infection. PROCEDURES: 1. CT of the brain done in [place] showing no acute intracranial process. 2. CT of cervical spine showing no evidence for fracture. 3. CT angiography of the brain and the grand traverse of Prakash showing old lacunar infarcts in each basal ganglia, but no focal stenosis, branch occlusion, or evidence of acute clot visualized. 4. Hip x-ray showing no evidence of fracture or dislocation. 5. Echocardiogram showing ejection fraction of 40% to 45% and pacer leads in the right ventricle and right atrial cavities. CONSULTATIONS: 1. Pulmonology, Dr. Wallre. 2. Neurology, Dr. Jin. SUMMARY OF HOSPITAL COURSE: This is a 73-year-old white female with a history of previous strokes. She has also had increasing falls over the last year. She was found down in her bedroom by her , had some weakness on her left side and some confusion. She was brought into the emergency room. She is noted to be gazing toward the right and not looking left past the midline initially and having some neglect on that side. She also had some mild weakness in her left upper and lower extremities. The patient had CTs as above. She was beyond the window for tPA, and so she was transferred to [facility] for admission. The patient was unable to get an MRI secondary to her pacemaker defibrillator. She improved during her hospitalization. She had resolution of her right gaze, was able to look to the left. Her strength returned in her left upper and lower extremities. Also, her altered mental status and confusion have resolved. She remained quite weak and needed a lot to help with physical therapy, and so she is going to rehabilitation. Of note, the patient did have her oral diuretics held and was given fluids during hospitalization until her confusion had cleared and then her oral pills were restarted. She did have her IV fluids stopped and had to have a couple doses of IV Lasix in order to clear some of the accumulated fluid. She also had a little bit of drop in her oxygen to the low 90s to where she was put on O2 in the hospital, though she never experienced any shortness of breath or coughing. This improved by the last hospital day. The patient was accepted to [facility] and is being discharged there now. Discharge management discharged to [facility] in [place]. The patient was found to have bacteria in her urine. On admission, this was thought to be possibly UTI contributing to her confusion. She was treated with antibiotics and eventually transitioned to oral antibiotics. The patient in the emergency room was noted to have a large hematoma on her front of her chest. Chest x-ray did not show any fractured ribs or other traumatic changes. She was very tender there. This was observed during hospitalization and the hematoma started to reabsorb and her tenderness resolved. FOLLOWUP: Follow up with the primary care doctor in 1 week. ACTIVITY: As tolerated. DIET: Fluid restricted, healthy heart, low-sodium diet. THERAPY: Occupational, Physical, and Speech Therapy. Oxygen as needed for oxygen sats drop. MEDICATIONS: 1. Amitriptyline 15 mg at night. 2. Aspirin 81 mg daily. 3. Atorvastatin 80 mg daily. 4. Cefdinir 300 mg twice a day for another 4 days. 5. Clopidogrel 75 mg daily. 6. twice a day. 7. Levothyroxine 175 mcg daily. 8. Metoprolol-XL 100 mg twice a day. 9. Dulera 100/5 mcg 2 puffs twice a day. 10. Protonix 40 mg daily. 11. Spironolactone 25 mg daily. 12. Torsemide 20 mg 4 times a day. 13. Tramadol as needed for pain. 14. Albuterol neb as needed. The details of the discharge took 35 minutes to arrange. Job ID: [id number]
--- NOTE | 2018-08-30 13:51 | EKG ---
Test Reason : Blood Pressure : / mmHG Vent. Rate : 083 BPM Atrial Rate : 083 BPM P-R Int : 150 ms QRS Dur : 142 ms QT Int : 410 ms P-R-T Axes : 072 -46 097 degrees QTc Int : 481 ms Electronic ventricular pacemaker Confirmed by LÓPEZ MCKEON D.O. ([id number]), web editor LAZ QUINN ([id number]) on 08/30/2018 1:51:16 PM Referred By: Confirmed By:LÓPEZ MCKEON D.O.
== END 2018-08-29 18:36 | DRG 65 ==
LOC: ERS 12:21 → ERHOLD 15:01 → IMCU/EMU 23:16 → 2SE 08-25 20:06
PROVIDERS: ADMIT Internal Medicine Infectious Disease; ATTEND Internal Medicine Infectious Disease
DX: I63.9 Cerebral infarction, unspecified (principal); N39.0 Urinary tract infection, site not specified; I50.22 Chronic systolic (congestive) heart failure; E87.0 Hyperosmolality and hypernatremia; G93.40 Encephalopathy, unspecified; I25.10 Atherosclerotic heart disease of native coronary artery without angina pectoris; J44.9 Chronic obstructive pulmonary disease, unspecified; K21.9 Gastro-esophageal reflux disease without esophagitis; M10.9 Gout, unspecified; F17.210 Nicotine dependence, cigarettes, uncomplicated; R29.6 Repeated falls; R00.0 Tachycardia, unspecified; R29.810 Facial weakness; I11.0 Hypertensive heart disease with heart failure; R13.10 Dysphagia, unspecified; Z88.5 Allergy status to narcotic agent; Z96.653 Presence of artificial knee joint, bilateral; Z95.1 Presence of aortocoronary bypass graft; Z95.810 Presence of automatic (implantable) cardiac defibrillator; Z95.2 Presence of prosthetic heart valve
CPT/HCPCS: 36415; 51702; 70450; 71045; 80048; 80053; 80061; 80202; 83605; 83880; 84443; 85025; 87040; 87077; 87086; 87186; 93005; 93010; 93306; 94640; 95816; 95819; 96361; 96365; C9113; J0131; J0696; J1940; J2185; J3370; S0028

== ENCOUNTER 2020-08-24 12:57 | Inpatient (IN) | payer MEDICARE ==
[~2020-08-24 12:57] MED LIST: Heparin 1,000 UNITS/ML VIAL ONE
[2020-08-24] MEDS ORDERED: Furosemide 40 MG/4 ML VIAL ONE (13:28)
[2020-08-24] MEDS ORDERED: Nitroglycerin 2% Ointment 1 INCH/1 GM Packet ONE (13:28)
[2020-08-24 13:36] LABS: #Eosinphils 0.1 thou/uL (0.0-0.7); #Lymphocytes 1.3 thou/uL (1.20-3.40); #Monocytes 0.9 thou/uL (0.11-0.59); #Neutrophils 5.7 thou/uL (1.40-6.50); %Basophils 0.2 % (0.0-1.0); %Eosinophils 0.9 % (0.0-10.0); %Lymphocytes 16.1 % (21.0-51.0); %Monocytes 11.6 % (0.0-10.0); %Neutrophils 71.2 % (42.0-75.0); Hemoglobin 11.7 g/dL (12.0-16.0); Mean Corpuscular HGB CONC 29.7 g/dL (32.0-36.0); Mean Corpuscular Hemoglobin 25.3 pg (27.0-31.0); Mean Corpuscular Volume 85.2 fL (78.0-98.0); Mean Platelet Volume 9.6 fL (7.4-10.4); Platelet Count 262 thou/uL (130-400); RBC Distribution Width 15.6 % (11.5-14.5); Red Blood Cell (RBC) Count 4.62 mill/uL (4.20-5.40)
[2020-08-24 13:54] LABS: ALT (SGPT) 19 U/L (8-55); AST (SGOT) 27 U/L (5-34); Albumin 3.3 g/dL (3.4-4.8); Alkaline Phosphatase 92 U/L (40-110); Anion Gap 13 mmol/L (10-20); BUN (Urea Nitrogen) 45 mg/dL (9.8-20.1); Bilirubin, Total 0.8 mg/dL (0.2-1.2); Calc. Creatinine Clearance 0 mL/min (70-130); Calcium 9.6 mg/dL (7.8-10.44); Carbon Dioxide 33 mmol/L (23-31); Chloride 102 mmol/L (98-107); Globulin 3.3 g/dL (2.4-3.5); Glucose 80 mg/dL (83-110); Potassium 4.7 mmol/L (3.5-5.1); Protein, Total 6.6 g/dL (6.0-8.3); Sodium 143 mmol/L (136-145)
[2020-08-24 13:58] LABS: Hypochromia SLIGHT = 6-15 cells (100X) (0-5/hpf); MDiff Complete? YES; Ovalocytes SLIGHT = 2-5 cells (100X) (0-1/hpf); Platelet Morphology Comment Appears Adequate; Polychromasia SLIGHT = 2-3 cells (100X) (0-2/hpf); Target Cells SLIGHT = 2-5 cells (100X) (0-1/hpf)
--- NOTE | 2020-08-24 13:58 | RAD ---
AP CHEST: 08/24/20 HISTORY: Shortness of breath, chest pain. COMPARISON: 08/27/18. Mild cardiomegaly with postop sternotomy change. AICD leads are unchanged in position. Evidence of sm all effusions and mild left basilar atelectasis. Stranding in the left mid lung suggests atelectasis. Mild vascular engorgement similar in appearance to the prior study. IMPRESSION: Findings are similar to the prior exam as described above. POS: AGW
[2020-08-24] MEDS ORDERED: Aspirin Chewable 81 MG TAB ONE (14:11)
[2020-08-24 14:33] LABS: CKMB 4.2 ng/mL (0-6.6)
[2020-08-24 15:14] LABS: SARS-CoV-2 NAA Rapid Test Not Detected (NotDetected)
[2020-08-24] MEDS ORDERED: Dextrose 5% in Water 1,000 ML IV PRN (15:34)
[2020-08-24] MEDS ORDERED: Acetaminophen 325 MG TAB PO PRN (15:34)
[2020-08-24] MEDS ORDERED: Insulin Regular 300 UNITS/3 ML VIAL SC PRN (15:34)
[2020-08-24 17:38] LABS: Troponin I 0.369 ng/mL (< 0.028)
--- NOTE | 2020-08-24 19:10 | HP ---
PRIMARY CARE PHYSICIAN: She says it is a Dr. Chand, but she does not know the last name in [place], [place]. MEDICAID COLLECTION SPECIALIST: Dr. Shah. CHIEF COMPLAINT: Coughing and more coughing. HISTORY OF PRESENT ILLNESS: Ms. Lim is a pleasant 75-year-old female who has a history of hypertension and coronary artery disease. She also has a history of congestive heart failure. She says that about 6 to 7 weeks ago, she started coughing and "having more coughing" and then also noted that she was having swelling in her lower extremities. She says this got progressively worse to the point where she was having shortness of breath even at rest. She also says that she has been having to sleep propped up on several pillows and she says she has gotten "used to this." She denies having any chest pain, but does note some irregular heart beat off and on. She denies any other symptoms such as nausea or vomiting, no fevers, no chills. She says that her sister and other family members "ganged up on her" and convinced her to come to the hospital, where she was evaluated and found to be in congestive heart failure and she is being admitted for further evaluation. The patient admits that she does not adhere to a strict diet. She says "I eat when I want to eat and I eat what I want to eat." She also says that she has not taken her fluid pills daily and occasionally may miss one or two. And her last time seeing Dr. Shah has been several months ago and she says that she saw his nurse practitioner at that time. REVIEW OF SYSTEMS: All systems were reviewed and are negative except for that mentioned in the history of present illness. PAST MEDICAL HISTORY: Significant for hypercholesterolemia, hypertension, coronary artery disease, COPD, chronic systolic heart failure, and gastroesophageal reflux disease. PAST SURGICAL HISTORY: She has had a mitral valve repair, bilateral knee replacement. She has had a bypass surgery as well as a defibrillator placed and appendectomy, hysterectomy, and bilateral tubal ligation. ALLERGIES: TO CODEINE AND MORPHINE. SOCIAL HISTORY: She denies any alcohol use, no drug use, but she does smoke. She is and would like to be a full code. FAMILY HISTORY: Significant for heart disease in the family. CURRENT MEDICATIONS: She says that the emergency room nurse had got them and these will need to be reconciled and include: 1. Aspirin 81 mg daily. 2. Atorvastatin 20 mg daily. 3. Plavix 75 mg daily. 4. Elavil 50 mg at bedtime. 5. Omeprazole 20 mg daily. 6. Symbicort. 7. Levothyroxine 75 mcg daily. 8. Torsemide 20 mg daily. 9. Zetia 10 mg daily. 10. Tramadol 50 mg q.6 as needed. PHYSICAL EXAMINATION: GENERAL: She is alert and oriented. She appears to be in no acute distress. She is slightly disheveled in appearance. VITAL SIGNS: Blood pressure was 129/84, heart rate 123, respiratory rate of 14, temperature is 98.1, and O2 saturation was 88% on room air originally. HEENT: Pupils are equal, round, and reactive. Extraocular muscles are intact. Her sclerae anicteric. NECK: She does have increased jugular venous distention up to the angle of the jaw. There are no bruits. LUNGS: She has basilar rales bilaterally. There is no wheezing, no rhonchi. CARDIOVASCULAR: The PMI is laterally displaced and more prominent. She has a normal S1 and S2. I did hear a grade 3/6 systolic murmur, which is radiating into the axilla. ABDOMEN: Soft. It is nontender, nondistended, obese. Positive for bowel sounds. There is no rebound, no guarding, no organomegaly. EXTREMITIES: She has 2+ pitting edema bilaterally in both lower extremities. She has palpable dorsalis pedis pulses, although it is slightly diminished, likely due to the edema and there are some skin changes. SKIN AND INTEGUMENT: There are no other than some excoriations. No other skin changes. NEUROLOGIC: Nonfocal. LABORATORY RESULTS: The sodium is 143, potassium 4.7, chloride is 102, CO2 is 33, BUN of 45, creatinine 1.62, glucose is 80. The white blood cell count is 8, hemoglobin 11.7, hematocrit is 39.3, and platelet count is 292. On her chest x-ray, it appears to be there is evidence of cardiomegaly. She has bilateral pleural effusions and increased pulmonary vascular markings, this is by my reading and on her EKG, it is electronically paced throughout. She had an echocardiogram a year ago, in which the ejection fraction was estimated at 40% to 45%. ASSESSMENT: This is a pleasant 75-year-old female who was admitted with decompensated heart failure. This is likely the result of dietary and medication indiscretion; although, the patient has noted some palpitations and when I go in the room, her heart rate is relatively fast at approximately 110 to 113. Therefore, there could be some underlying arrhythmia as well. She will be admitted to telemetry, started on IV diuretics. We will need to reconcile and restart her home medications and we will get an echocardiogram. She has significant chronic kidney disease and this may be why she may not be on an MELINDA or an ARB at least from her records. We will also consult her house steward/stewardess for recommendations. 1. Hypertension. We will need to reconcile and restart her home medications for blood pressure as well as p.r.n. medicines. 2. Coronary artery disease. She did have a slightly bumped troponin. We will continue to trend her cardiac enzymes, place her on the nitrates and beta-kevin as tolerated and again, Cardiology will be consulted. 3. Chronic obstructive pulmonary disease. She will be placed on an inhaled corticosteroid as well as DuoNeb p.r.n. 4. Gastroesophageal reflux disease. We will place her on a proton pump inhibitor. Job ID: [id number]
[2020-08-24 19:46] LABS: Troponin I 0.298 ng/mL (< 0.028)
--- NOTE | 2020-08-24 23:47 | CT ---
Exam: Head CT without contrast HISTORY: Altered mental status. Patient is nonresponsive. COMPARISON: 08/25/2018 FINDINGS: Hemorrhage: No intraparenchymal hemorrhage or extra-axial hematoma. Brain parenchyma: Cortical morrow-white matter differentiation is preserved. No mass effect or midline shift. Basilar cisterns are patent.Extensive white matter hypodensities, similar to the previous examination. Multifocal chronic small vessel ischemic changes of the white matter are suspected. Age- appropriate atrophy. Ventricular system: Ventricles and sulci are patent and symmetric. Calvarium: Intact. Sinuses and mastoid air cells: Adequate aeration. IMPRESSION: 1. No acute intracranial process 2. Stable chronic small vessel ischemic changes of the white matter 3. Results of the study conveyed to Dr. Fox via M2G connect 08/24/2020 11:43 PM Code CR
--- NOTE | 2020-08-25 00:18 | PDOC.BPN ---
- Brief Progress Note Encounter Date: 08/25/20 Arnold wylie was called for Ms. Lim. She was said to have been noncommunicative however is unclear when last started. Nurse notes she could hardly speak but the time she got to her room from the ED. Blood sugar checked at the time was 67. She was given D50 with improvement to 100. She was taken down for CT scan of the head which showed no acute bleed. He denies call ranged around 12,000 open the possibility for TPA. Since it was unclear when this event started TPA was decided against. She had received 3 to 4 mg aspirin prior to moving up to the floor. I called her to update him and inquire further about her baseline. He notes that she has been having intermittent periods of difficulty speaking for the past 2 days prior to presentation. Also noted she has had a prior stroke 2 years ago. I think she may have been having a gradually worsening CVA until presentation At this point we will continue observing her on telemetry MRI in a.m. Neuro consult in a.m.
[2020-08-25] MEDS: Heparin 5,000 UNITS/ML VIAL SC SCH ×3 (01:33→20:39)
[2020-08-25] MEDS: Dextrose 50% Abboject 50 ML SYRINGE SLOW IVP PRN ×3 (01:36→10:54)
[2020-08-25 04:39] LABS: Anion Gap 14 mmol/L (10-20); BUN (Urea Nitrogen) 44 mg/dL (9.8-20.1); Calc. Creatinine Clearance 30 mL/min (70-130); Calcium 9.2 mg/dL (7.8-10.44); Carbon Dioxide 32 mmol/L (23-31); Chloride 103 mmol/L (98-107); Glucose 75 mg/dL (83-110); Potassium 4.6 mmol/L (3.5-5.1); Sodium 144 mmol/L (136-145)
[2020-08-25 05:50] LABS: #Eosinphils 0.1 thou/uL (0.0-0.7); #Monocytes 1.1 thou/uL (0.11-0.59); %Basophils 0.5 % (0.0-1.0); %Eosinophils 1.8 % (0.0-10.0); %Monocytes 14.9 % (0.0-10.0); %Neutrophils 68.8 % (42.0-75.0); Anisocytosis SLIGHT = 6-15 cells (100X) (0-5/hpf); Band 10 % (5-11); Hemoglobin 11.2 g/dL (12.0-16.0); Lymphocytes 12 % (21-51); MDiff Complete? YES; Mean Corpuscular HGB CONC 29.5 g/dL (32.0-36.0); Mean Corpuscular Hemoglobin 25.6 pg (27.0-31.0); Mean Corpuscular Volume 86.5 fL (78.0-98.0); Mean Platelet Volume 9.6 fL (7.4-10.4); Monocytes 8 % (0-10); Neutrophil 70 % (42-75); Platelet Count 222 thou/uL (130-400); RBC Distribution Width 15.6 % (11.5-14.5); Red Blood Cell (RBC) Count 4.39 mill/uL (4.20-5.40); White Blood Cell (WBC) Count 7.2 thou/uL (4.8-10.8)
[2020-08-25] MEDS ORDERED: Furosemide 40 MG/4 ML VIAL SLOW IVP SCH ×2 (06:00→20:00)
[2020-08-25] MEDS ORDERED: FLU VACC QS2020-21(65YR UP)/PF 240 MCG/0.7 ML SYRINGE IM ONE (09:00)
--- NOTE | 2020-08-25 11:31 | PDOC.HOSPP ---
- Subjective Encounter Date: 08/25/20 Subjective: The patient had an episode of aphasia yesterday. This has resolved since. She is complaining of feeling thirsty this morning. - Objective Vital Signs & Weight: Vital Signs (12 hours) Temp Pulse Resp BP Pulse Ox 08/25/20 11:16 97.6 F 113 H 18 141/79 H 97 08/25/20 07:54 97.8 F 111 H 20 122/71 99 08/25/20 04:00 97.7 F 104 H 20 122/64 96 Weight Weight 138 lb Result Diagrams: 08/25/20 04:06 08/25/20 04:06 Additional Labs: Accuchecks 08/25/20 08/25/20 08/24/20 06:16 05:16 23:57 POC Glucose 141 H 66 L 168 H 08/24/20 23:05 POC Glucose 65 L Hospitalist ROS - Medication Medications: Active Medications Generic Name Dose Route Start Last Admin Trade Name Freq PRN Reason Stop Dose Admin Dextrose/Water 25 gm 08/24/20 15:34 08/25/20 10:54 Dextrose 50% Abboject 50 Ml Syringe SLOW IVP 25 gm PRN PRN Administration Hypoglycemia Heparin Sodium (Porcine) 5,000 units 08/24/20 21:00 08/25/20 11:03 Heparin 5,000 Units/Ml Vial SC 5,000 units BID ROHINI Administration - Exam General Appearance: awake alert ENT: normocephalic atraumatic Neck: supple, no JVD Heart: RRR Respiratory: normal chest expansion, no tachypnea Extremities: no cyanosis, no clubbing Neurological: cranial nerve grossly intact, no focal deficits Hosp A/P (1) Acute on chronic systolic (congestive) heart failure Code(s): I50.23 - ACUTE ON CHRONIC SYSTOLIC (CONGESTIVE) HEART FAILURE Status: Acute (2) Acute kidney injury Code(s): N17.9 - ACUTE KIDNEY FAILURE, UNSPECIFIED Status: Acute (3) Aphasia Code(s): R47.01 - APHASIA Status: Acute (4) CAD (coronary artery disease) Code(s): I25.10 - ATHSCL HEART DISEASE OF [place] CORONARY ARTERY W/O ANG PCTRS Status: Chronic (5) COPD (chronic obstructive pulmonary disease) Status: Chronic (6) Hypertension Code(s): I10 - ESSENTIAL (PRIMARY) HYPERTENSION Status: Chronic - Plan The patient has been diuresing well since yesterday. I will decrease her Lasix dose to 40 mg IV daily given her elevated BUN/creatinine level. Her EF is 40 to 45%. Start low-dose carvedilol and hold off on MELINDA inhibitor's until her creatinine level improves. Otherwise, continue her current CHF medications. A transient episode of aphasia was reported yesterday. An MRI of the brain is scheduled today. Continue supplemental oxygen and nebulizer treatments for her chronic COPD.
--- NOTE | 2020-08-25 13:05 | CON ---
NEUROLOGY CONSULTATION DATE OF CONSULTATION: 08/25/2020 REASON FOR CONSULTATION: Episode of aphasia/rule out stroke. HISTORY OF PRESENT ILLNESS: Ms. Lim is a 75-year-old female with medical history significant for hypertension and coronary artery disease and congestive heart failure; presented to the emergency room with increased cough. The patient was admitted for further evaluation. However, during her stay she has an episode of aphasia with some confusion and there was a concern about stroke; so Neurology was admitted for further evaluation. Head CT was done at that time which was negative for acute intracranial pathology. The patient denies nausea, vomiting, headache, chest pain, abdominal pain. No focal weakness or focal paresthesias at this time. Per review of the records, she has an episode of aphasia with confusion yesterday, which is now resolved. REVIEW OF SYSTEMS: All systems reviewed and were negative except the pertinent positives and negatives mentioned in the HPI. PAST MEDICAL HISTORY: Acute on chronic systolic heart failure, acute kidney injury, aphasia, coronary artery disease, COPD, hypertension. PAST SURGICAL HISTORY: She has mitral valve repair, bilateral knee replacement, bypass surgery and defibrillator placed, appendectomy, hysterectomy, and bilateral tubal ligation. ALLERGIES: MORPHINE. SOCIAL HISTORY: The patient denies smoking, alcohol, illegal drug abuse. She does smoke. She is . FAMILY HISTORY: Significant for heart disease the family. HOME MEDICATIONS: 1. Aspirin 81 mg daily. 2. Atorvastatin 20 mg daily. 3. Plavix 75 mg daily. 4. Elavil 50 mg at bedtime. 5. Omeprazole 20 mg daily. 6. Symbicort. 7. Levothyroxine 75 mcg daily. 8. Torsemide 20 mg daily. 9. Zetia 10 mg daily. 10. Tramadol 50 mg q.6 hours as needed. Vital Signs & Weight: Vital Signs (12 hours) Temp Pulse Resp BP Pulse Ox 08/25/20 11:16 97.6 F 113 H 18 141/79 H 97 08/25/20 07:54 97.8 F 111 H 20 122/71 99 08/25/20 04:00 97.7 F 104 H 20 122/64 96 Weight Weight 138 lb Additional Labs: Accuchecks 08/25/20 08/25/20 08/24/20 06:16 05:16 23:57 POC Glucose 141 H 66 L 168 H 08/24/20 23:05 POC Glucose 65 L Hospitalist ROS - Medication Medications: Active Medications Generic Name Dose Route Start Last Admin Trade Name Freq PRN Reason Stop Dose Admin Dextrose/Water 25 gm 08/24/20 15:34 08/25/20 10:54 Dextrose 50% Abboject 50 Ml Syringe SLOW IVP 25 gm PRN PRN Administration Hypoglycemia Heparin Sodium (Porcine) 5,000 units 08/24/20 21:00 08/25/20 11:03 Heparin 5,000 Units/Ml Vial SC 5,000 units BID ROHINI Administration - Exam General Appearance: awake alert ENT: normocephalic atraumatic Neck: supple, no JVD Heart: RRR Respiratory: normal chest expansion, no tachypnea Extremities: no cyanosis, no clubbing Neurological: cranial nerve grossly intact, no focal deficits Hosp A/P PHYSICAL EXAMINATION: VITAL SIGNS: Blood pressure 120/80, pulse 80, respiratory rate 18. CVS: Regular rate and rhythm. CHEST: Clear. ABDOMEN: Soft. NECK: Supple. NEUROLOGICAL: Mental status, the patient is alert and oriented to person and place. She follows commands appropriately. Speech is clear. Motor, muscle tone, and bulk are normal. Moving all 4 extremities equally and symmetrically. Sensory withdraws to nailbed pressure bilaterally. Cerebellar finger-nose testing intact. Gait deferred due to patient's safety reason. EXTREMITIES: 2+ pitting edema bilaterally. DIAGNOSTIC DATA: I reviewed the head CT on initial presentation, which was negative for acute intracranial process. ASSESSMENT AND PLAN: (1) TIA Status: Acute Acute on chronic systolic (congestive) heart failure Code(s): I50.23 - ACUTE ON CHRONIC SYSTOLIC (CONGESTIVE) HEART FAILURE Status: Acute (2) Acute kidney injury Code(s): N17.9 - ACUTE KIDNEY FAILURE, UNSPECIFIED Status: Acute (3) Aphasia Code(s): R47.01 - APHASIA Status: Acute (4) CAD (coronary artery disease) Code(s): I25.10 - ATHSCL HEART DISEASE OF [place] CORONARY ARTERY W/O ANG PCTRS Status: Chronic (5) COPD (chronic obstructive pulmonary disease) Status: Chronic (6) Hypertension Code(s): I10 - ESSENTIAL (PRIMARY) HYPERTENSION Status: Chronic Ms. Safia Lim is consulted for an episode of confusion with aphasia, which is now resolved most likely transient ischemic attack because of her risk factors. The patient is already on aspirin and Plavix. Consider increasing the dose of aspirin to 325 mg daily. The patient does also needs to be continue high-intensity statin for secondary stroke prevention. Permissive control of blood pressure at this time. Strict control of blood glucose. Telemetry to rule out arrhythmias. 2D echo showed ejection fraction 40% to 45%. No thrombus or PFO. Continue home medications. Carotid Dopplers to rule out hemodynamically significant stenosis. Continue medical management per primary team, PT/OT/Speech. EEG to rule out cortical irritability and acute confusion. We will continue to follow. Thank you for the consult. Job ID: [id number] [facility]
--- NOTE | 2020-08-25 15:55 | CON ---
DATE OF CONSULTATION: 08/25/2020 REASON FOR CONSULTATION: Congestive heart failure, systolic and diastolic mixed, (predominantly diastolic). HISTORY OF PRESENT ILLNESS: Ms. Lim is a very pleasant 75-year-old woman. She has a history of coronary artery disease and mitral valve insufficiency. The patient underwent previous coronary artery bypass grafting, and subsequently underwent cardiac catheterization in 06/2017. At that time, she was found to have: 1. Left main normal. 2. LAD occluded with a patent internal mammary artery. 3. Circumflex with 50% to 60% obtuse marginal lesion with a patent vein graft. 4. Right coronary artery chronically occluded, filling by collaterals. It was noted that she has severe mitral regurgitation. Therefore, she underwent percutaneous intervention with clipping of the mitral valve with MitraClip in 08/2018. She did very well, but the last month, she has had progressive trouble breathing, progressive shortness of breath, and finally came to the hospital and found to be in congestive heart failure. MEDICATIONS PRIOR TO ADMISSION: 1. Amitriptyline. 2. Symbicort. 3. Levothyroxine. 4. Zetia. 5. Aspirin. 6. Atorvastatin 20 mg a day. 7. Torsemide 40 mg a day. 8. Allopurinol 100 mg a day. 9. Carvedilol 12.5 mg twice a day. 10. Clopidogrel 75 mg a day. PAST HISTORY: 1. Diabetes. 2. Coronary artery disease. 3. Systolic heart failure. 4. Mitral regurgitation, as mentioned. SURGICAL HISTORY: 1. Bypass in 1995 with results as outlined above. 2. MitraClip placed I believe in 08/2018 in [place]. 3. Biventricular pacemaker defibrillator. REVIEW OF SYSTEMS: CONSTITUTIONAL: Positive for weakness and fatigue. VISION: No changes. HEARING: No changes. PULMONARY: Positive for shortness of breath. CARDIAC: No chest pain. Positive for shortness of breath. GASTROINTESTINAL: No nausea, vomiting, or diarrhea. SKIN: No rashes. NEUROLOGIC: No unilateral weakness or numbness. PSYCHIATRIC: No unusual depression or anxiety. PHYSICAL EXAMINATION: GENERAL: A pleasant elderly woman. She does look chronically ill. VITAL SIGNS: Her blood pressure 140/79 and pulse 100 and it is regular. NECK: Neck veins are normal. Carotid normal upstrokes. LUNGS: Clear anteriorly and posteriorly. CARDIAC: A 2/6 to 3/6 holosystolic murmur at the apex of mitral regurgitation. ABDOMEN: Soft and nontender. EXTREMITIES: Warm and dry. No clubbing or cyanosis. Only mild edema. PERTINENT LABORATORY DATA: Creatinine is 1.62, which is near her baseline, creatinine has gone as high as 2.7 in 08/2018. The GFR is 31. Hemoglobin is 11.2. COVID test was negative. EKG does show a biventricular paced rhythm. [employer] [facility] was interrogated. This revealed that she does have some periods of nonsustained ventricular tachycardia, there is no atrial fibrillation. The OptiVol is very high, compatible with decompensated heart failure. The patient did have an episode of aphasia today, thought to be a transient ischemic attack. The ventricular pacing is 96%, biventricular. As mentioned, there is no atrial fibrillation. The patient's most recent echocardiogram, ejection fraction was 40% to 45%. [id number] mitral regurgitation. CONCLUSION: 1. Congestive heart failure, systolic and diastolic mixed, mostly diastolic. 2. Mitral regurgitation with previous MitraClip. On exam, it sounds like there may be increased mitral regurgitation. 3. Renal failure, stage 3 to 4. PLAN: 1. Diuretic therapy. 2. Low-dose beta blockers. 3. Avoid MELINDA inhibitors with renal failure. I believe this may have worsened her problem in the past. 4. Echocardiography. 5. May consider very low doses of Entresto and watch and monitor renal function carefully. Hopefully, again tomorrow then I will be out the next few days. We will follow with you. Job ID: [id number]
[2020-08-25] MEDS: Carvedilol 3.125 MG TAB PO SCH (16:31)
--- NOTE | 2020-08-25 17:21 | ULT ---
BILATERAL CAROTID DUPLEX ULTRASOUND: HISTORY: Evaluate for significant stenosis. TECHNIQUE: Grayscale, color-flow and spectral Doppler ultrasound imaging of the extracranial carotid artery syst ems and vertebral arteries was performed bilaterally. FINDINGS: Right carotid: Calcified plaque involving the right carotid bifurcation and proximal carotid artery. Left carotid: No significant atherosclerotic disease. Minimal noncalcified plaque in the left carotid bifurcation. The peak systolic velocity in the right ICA measures 59.4 cm/s. The peak systolic velocity in the ri ght CCA measures 62.9 cm/s. The peak systolic velocity in the left ICA measures 52.5 cm/s. The peak systolic velocity in the l eft CCA measures 70.1 cm/s. The right IC/CC ration is0.9. The left IC/CC ratio is 0.8. Vertebral flow: antegrade, bilaterally. . IMPRESSION: No hemodynamically significant stenosis of either cervical carotid artery.
--- NOTE | 2020-08-25 17:44 | PDOC.BPN ---
- Brief Progress Note EEG negative for seizure activity. Carotid dopplers did not reveal hemodynamically significant stenosis. 2 D echo showed LVEF 20-25%. Left atrium is dilated. Cardiology on board. Awaiting MRI Brain to rule out intracranial process if pacemaker is compatible.
--- NOTE | 2020-08-25 17:52 | PDOC.EEG ---
Neurology EEG Report - Report Report: This EEG was performed using 24 channel Statusly video EEG machine with 24 disc electrodes. This was an extended 2 hours 6 minutes of inpatient video EEG recording. Digital analysis of the EEG was done for spike and seizure detection which revealed no abnormalities. Background: There is a nonsustained posterior background rhythm of 6-7 Hz. Hyperventilation: Not performed. Photic Stimulation: No significant response. Sleep: No stage change is observed. EEG Diagnosis: Intermittent irregular theta activity seen during the reording. Nonsustained slow Posterior background rhythm. Clinical Interpretation: This EEG is consistent with mild to moderate generalized nonspecific cerebral dysfunction.
[2020-08-26 04:44] LABS: #Eosinphils 0.2 thou/uL (0.0-0.7); #Lymphocytes 0.8 thou/uL (1.20-3.40); #Monocytes 0.8 thou/uL (0.11-0.59); %Basophils 0.6 % (0.0-1.0); %Eosinophils 2.4 % (0.0-10.0); %Lymphocytes 11.5 % (21.0-51.0); %Monocytes 11.6 % (0.0-10.0); Hemoglobin 10.7 g/dL (12.0-16.0); Mean Corpuscular HGB CONC 29.1 g/dL (32.0-36.0); Mean Corpuscular Hemoglobin 25.3 pg (27.0-31.0); Mean Corpuscular Volume 87.1 fL (78.0-98.0); Mean Platelet Volume 9.3 fL (7.4-10.4); Platelet Count 224 thou/uL (130-400); RBC Distribution Width 15.6 % (11.5-14.5); Red Blood Cell (RBC) Count 4.23 mill/uL (4.20-5.40); White Blood Cell (WBC) Count 6.8 thou/uL (4.8-10.8)
[2020-08-26 04:55] LABS: Anion Gap 15 mmol/L (10-20); BUN (Urea Nitrogen) 45 mg/dL (9.8-20.1); Calc. Creatinine Clearance 27 mL/min (70-130); Carbon Dioxide 31 mmol/L (23-31); Chloride 100 mmol/L (98-107); Glucose 78 mg/dL (83-110); Potassium 4.7 mmol/L (3.5-5.1); Sodium 141 mmol/L (136-145)
--- NOTE | 2020-08-26 08:22 | PDOC.HOSPP ---
- Subjective Encounter Date: 08/26/20 Encounter Time: 08:20 Subjective: Ms. Lim was seen today in follow-up of CHF exacerbation and TIA. She says she feels ok. She is juust laying here. - Objective Vital Signs & Weight: Vital Signs (12 hours) Temp Pulse Resp BP Pulse Ox 08/26/20 07:31 97.9 F 112 H 20 130/66 96 08/26/20 04:00 98.5 F 113 H 22 H 127/60 95 Weight Admit Weight 138 lb 1.6 oz Weight 140 lb I&O: 08/25/20 08/26/20 08/27/20 06:59 06:59 06:59 Intake Total 734 Balance 734 Result Diagrams: 08/26/20 04:05 08/26/20 04:05 Additional Labs: Accuchecks 08/26/20 08/25/20 08/25/20 06:11 20:35 16:32 POC Glucose 89 106 H 109 H 08/25/20 08/25/20 11:33 10:43 POC Glucose 114 H 59 L* Hospitalist ROS - Medication Medications: Active Medications Generic Name Dose Route Start Last Admin Trade Name Freq PRN Reason Stop Dose Admin Carvedilol 3.125 mg 08/25/20 17:00 08/25/20 16:31 Carvedilol 3.125 Mg Tab PO 3.125 mg BID-WM ROHINI Administration Dextrose/Water 25 gm 08/24/20 15:34 08/25/20 10:54 Dextrose 50% Abboject 50 Ml Syringe SLOW IVP 25 gm PRN PRN Administration Hypoglycemia Heparin Sodium (Porcine) 5,000 units 08/24/20 21:00 08/25/20 20:39 Heparin 5,000 Units/Ml Vial SC 5,000 units BID ROHINI Administration - Exam Eye: PERRL, anicteric sclera Heart: RRR, no murmur, no gallops, no rubs, normal peripheral pulses Respiratory: rales (at the bases) Gastrointestinal: soft, non-tender, non-distended, normal bowel sounds Extremities: no cyanosis (+ palpable d.p. pulses), 2+ LE edema Psychiatric: normal affect, A&O x 3 (No aphasia) Hosp A/P (1) Acute on chronic systolic heart failure, NYHA class 2 Code(s): I50.23 - ACUTE ON CHRONIC SYSTOLIC (CONGESTIVE) HEART FAILURE Status: Acute (2) TIA (transient ischemic attack) Code(s): G45.9 - TRANSIENT CEREBRAL ISCHEMIC ATTACK, UNSPECIFIED Status: Acute (3) CAD (coronary artery disease) Code(s): I25.10 - ATHSCL HEART DISEASE OF [place] CORONARY ARTERY W/O ANG PCTRS Status: Chronic (4) COPD (chronic obstructive pulmonary disease) Status: Chronic (5) GERD (gastroesophageal reflux disease) Code(s): K21.9 - GASTRO-ESOPHAGEAL REFLUX DISEASE WITHOUT ESOPHAGITIS Status: Chronic (6) Hypertension Code(s): I10 - ESSENTIAL (PRIMARY) HYPERTENSION Status: Chronic - Plan * Acute on chronic systolic heart failure- Carvediolol was added. No MELINDA-I or ARB due to renal insufficiency * Her EF is much lower than on her prior EF- will defer to Cardiology * HTN-blood pressure is stable * TIA- aphasia has resolved- ? MRI- will continue aspirin and plavix * COPD- stable
[2020-08-26] MEDS ORDERED: Furosemide 40 MG/4 ML VIAL SLOW IVP SCH (09:00)
[2020-08-26] MEDS: Carvedilol 3.125 MG TAB PO SCH ×2 (09:03→18:42)
[2020-08-26] MEDS: Aspirin Chewable 81 MG TAB PO SCH (09:03)
[2020-08-26] MEDS: Clopidogrel Bisulfate 75 MG TAB PO SCH (09:04)
[2020-08-26] MEDS: Heparin 5,000 UNITS/ML VIAL SC SCH ×2 (09:04→22:28)
--- NOTE | 2020-08-26 12:03 | PDOC.NEUPN ---
- Subjective Encounter Date: 08/26/20 Subjective: Ms. Lim denies any new complaints in the last 24 hours - Objective Vital Signs & Weight: Vital Signs (12 hours) Temp Pulse Resp BP Pulse Ox 08/26/20 07:31 97.9 F 112 H 20 130/66 96 08/26/20 04:00 98.5 F 113 H 22 H 127/60 95 Weight Admit Weight 138 lb 1.6 oz Weight 140 lb I&O: 08/25/20 08/26/20 08/27/20 06:59 06:59 06:59 Intake Total 734 Balance 734 Result Diagrams: 08/26/20 04:05 08/26/20 04:05 Additional Labs: Accuchecks 08/26/20 08/26/20 08/25/20 10:38 06:11 20:35 POC Glucose 102 H 89 106 H 08/25/20 08/25/20 16:32 10:43 POC Glucose 109 H 59 L* Radiology Reviewed by me: Yes EKG Reviewed by me: Yes ROS - Review of Systems Constitutional: denies: fever, chills, sweats, weakness, malaise, other Eyes: denies: pain, vision change, conjunctivae inflammation, eyelid inflammation, redness, other ENT: denies: ear pain, ear discharge, nose pain, nose discharge, nose congestion, mouth pain, mouth swelling, throat pain, throat swelling, other Respiratory: denies: cough, dry, shortness of breath, hemoptysis, SOB with excertion, pleuritic pain, sputum, wheezing, other Gastrointestinal: denies: nausea, vomiting, abdominal pain, diarrhea, constipation, melena, hematochezia, other Genitourinary: denies: dysuria, frequency, incontinence, hematuria, retention, other - Medication Medications: Active Medications Generic Name Dose Route Start Last Admin Trade Name Freq PRN Reason Stop Dose Admin Aspirin 81 mg 08/26/20 09:00 08/26/20 09:03 Aspirin Chewable 81 Mg Tab PO 81 mg DAILY ROHINI Administration Carvedilol 3.125 mg 08/25/20 17:00 08/26/20 09:03 Carvedilol 3.125 Mg Tab PO 3.125 mg BID- ROHINI Administration Clopidogrel Bisulfate 75 mg 08/26/20 09:00 08/26/20 09:04 Clopidogrel Bisulfate 75 Mg Tab PO 75 mg DAILY ROHINI Administration Dextrose/Water 25 gm 08/24/20 15:34 08/25/20 10:54 Dextrose 50% Abboject 50 Ml Syringe SLOW IVP 25 gm PRN PRN Administration Hypoglycemia Furosemide 40 mg 08/26/20 09:00 08/26/20 09:04 Furosemide 40 Mg/4 Ml Vial SLOW IVP 40 mg DAILY ROHINI Administration Heparin Sodium (Porcine) 5,000 units 08/24/20 21:00 08/26/20 09:04 Heparin 5,000 Units/Ml Vial SC 5,000 units BID ROHINI Administration Pantoprazole Sodium 40 mg 08/26/20 09:00 08/26/20 09:03 Pantoprazole 40 Mg Tab PO 40 mg DAILY ROHINI Administration - Exam General Appearance: awake alert Eye: PERRL ENT: normocephalic atraumatic Neck: supple Respiratory: CTAB Cardiovascular: no murmur Gastrointestinal: soft Extremities: no cyanosis Skin: normal turgor Neurological: CN's grossly intact, normal sensation to touch, no weakness, no focal deficits PSYCH: normal affect, normal behavior, A&O x 3 Results - Labs Result Diagrams: 08/26/20 04:05 08/26/20 04:05 Lab results: WBC 6.8 thou/uL (4.8-10.8) 08/26/20 04:05 Hgb 10.7 g/dL (12.0-16.0) L 08/26/20 04:05 Hct 36.9 % (36.0-47.0) 08/26/20 04:05 MCV 87.1 fL (78.0-98.0) 08/26/20 04:05 Plt Count 224 thou/uL (130-400) 08/26/20 04:05 Neutrophils % 74.0 % (42.0-75.0) 08/26/20 04:05 Band Neuts % (Manual) 10 % (5-11) 08/25/20 04:06 Sodium 141 mmol/L (136-145) 08/26/20 04:05 Potassium 4.7 mmol/L (3.5-5.1) 08/26/20 04:05 Chloride 100 mmol/L (98-107) 08/26/20 04:05 Carbon Dioxide 31 mmol/L (23-31) 08/26/20 04:05 BUN 45 mg/dL (9.8-20.1) H 08/26/20 04:05 Creatinine 1.79 mg/dL (0.6-1.1) H 08/26/20 04:05 Glucose 78 mg/dL (83-110) L 08/26/20 04:05 Lactic Acid 1.4 mmol/L (0.5-2.2) 08/24/20 13:38 Calcium 9.0 mg/dL (7.8-10.44) 08/26/20 04:05 Total Bilirubin 0.8 mg/dL (0.2-1.2) 08/24/20 13:21 AST 27 U/L (5-34) 08/24/20 13:21 ALT 19 U/L (8-55) 08/24/20 13:21 Alkaline Phosphatase 92 U/L (40-110) 08/24/20 13:21 CK-MB (CK-2) 4.2 ng/mL (0-6.6) 08/24/20 13:21 Troponin I 0.298 ng/mL (< 0.028) H 08/24/20 19:18 B-Natriuretic Peptide 1331.2 pg/mL (0-100) H 08/25/20 04:06 Serum Total Protein 6.6 g/dL (6.0-8.3) 08/24/20 13:21 Albumin 3.3 g/dL (3.4-4.8) L 08/24/20 13:21 - Radiology Interpretation CT scan - head Additional Comment: Initial head CT was negative for acute intracranial pathology PN A/P (1) TIA (transient ischemic attack) Code(s): G45.9 - TRANSIENT CEREBRAL ISCHEMIC ATTACK, UNSPECIFIED Status: Acute (2) Aphasia Code(s): R47.01 - APHASIA Status: Acute (3) Acute kidney injury Code(s): N17.9 - ACUTE KIDNEY FAILURE, UNSPECIFIED Status: Acute (4) Acute on chronic systolic (congestive) heart failure Code(s): I50.23 - ACUTE ON CHRONIC SYSTOLIC (CONGESTIVE) HEART FAILURE Status: Acute (5) CAD (coronary artery disease) Code(s): I25.10 - ATHSCL HEART DISEASE OF [place] CORONARY ARTERY W/O ANG PCTRS Status: Chronic (6) Recurrent falls Code(s): R29.6 - REPEATED FALLS Status: Acute (7) COPD (chronic obstructive pulmonary disease) Status: Chronic (8) GERD (gastroesophageal reflux disease) Code(s): K21.9 - GASTRO-ESOPHAGEAL REFLUX DISEASE WITHOUT ESOPHAGITIS Status: Chronic (9) Gout Code(s): M10.9 - GOUT, UNSPECIFIED Status: Chronic (10) Hx of prosthetic heart valve Status: Chronic (11) Hypertension Code(s): I10 - ESSENTIAL (PRIMARY) HYPERTENSION Status: Chronic - Plan Daily Plan: PT/OT, speech therapy, DVT proph w/lovenox Mrs Lim is a 75 year old female with history significant for COPD, coronary artery disease, hypertension, and s/p prosthetic heart valve consulted for an episode of aphasia with mild confusion. Most likely TIA. MRI brain not possible due to pacemaker device being incompatible. Repeat HCT tomorrow 48 hours after symptom onset. EEG reviewed and was negative for seizure activity. Carotid dopplers did not reveal hemodynamically significant stenosis. 2 D echo showed LVEF 20-25%. Left atrium is dilated. Cardiology on board. Neurochecks every 4 hours. Monitor BP and Blood glucose. Continue aspirin, plavix and high intensity statin for secondary stroke prevention. Continue telemetry. Continue home medications. Continue medical management per primary team. PT/OT/See[place]. DVT prophylaxis Plan discussed in detail with the patient
--- NOTE | 2020-08-26 13:09 | PRG ---
DATE OF SERVICE: 08/26/2020 SUBJECTIVE: Ms. Lim was sleeping when I went into the room to evaluate her. She looks very chronically ill and weak. She says she is not having any chest pain. She is not short of breath at rest. OBJECTIVE: GENERAL: She is a very frail-appearing elderly, but very pleasant woman. VITAL SIGNS: Her blood pressure is 112/57, pulse is 103. LUNGS: Clear anteriorly, posteriorly. There are some rales at the bases. CARDIAC: There is a 2/6 to 3/6 holosystolic murmur at the apex of mitral regurgitation. ABDOMEN: Soft and nontender. EXTREMITIES: Mild edema. DIAGNOSTIC STUDIES: Echocardiogram showed the patient's left ventricular function is further worsened, ejection fraction is now 20% to 25%. She has severe mitral regurgitation and severe tricuspid insufficiency. ASSESSMENT: 1. Congestive heart failure, systolic/diastolic combined, but now mostly systolic, worsened, decompensated. 2. Mitral regurgitation with previous MitraClip, has worsened, probably due to left ventricular dilatation. 3. Coronary artery disease. 4. Renal insufficiency stage 4 with a GFR of 28. Long-term prognosis obviously appears poor. She seems to worsen due to worsening left ventricular function. PLAN: 1. Reduce diuretics. 2. Add Entresto. She previously was on angiotensin-receptor blockers, but went off for some time in the past, it is unclear reasons, probably due to renal insufficiency. 3. Try to increase beta blockers. 4. Prognosis is guarded to poor in this very pleasant, but unfortunate patient. If she does not improve, the only other option may be to try to bridge her to try to improve her status. Long-term prognosis appears poor. Job ID: [id number]
[2020-08-26 17:46] LABS: Actual Bicarbonate (HCO3a) 33.1 mEq/L (22-28); Base Excess (BEa) 3.6 mEq/L (-2.0 to +3.0); Carboxyhemoglobin (COHb) 1.1 gm% (0.0-3.0); Hemoglobin (Hb) 11.7 g/dL (12.0-16.0); O2 Tension (PaO2), arterial 86.3 mmHg (> 70.0); Potassium - ABG Lab 4.52 mmol/L (3.70-5.30)
[2020-08-26 17:48] LABS: CO2 Tension 79.8 mmHg (35.0-45.0); Puncture Site RRA; pH, Arterial 7.24 (7.35-7.45)
[2020-08-26] MEDS ORDERED: Furosemide 40 MG/4 ML VIAL ONE (18:02)
--- NOTE | 2020-08-26 18:06 | RAD ---
Exam: Chest one view HISTORY:Congestive heart failure Comparison: 11/27/2006 FINDINGS: Cardiac silhouette:Cardiomegaly. There are sternotomy wires. Left-sided transvenous defibrillator wit h lead positioned right atrium and right ventricle. Aorta: Intensive atherosclerosis of the aorta Pulmonary vessels: Mildly prominent pulmonary vasculature. Costophrenic angles: Small bilateral pleural effusions, left greater than right. LUNGS: Hyperinflation. Scattered interstitial opacities may represent interstitial edema. Pneumothorax: None Osseous abnormalities: None IMPRESSION: Congestive heart failure.
[2020-08-26] MEDS ORDERED: Milrinone Lactate/D5W 20 MG in Premix Bag 1 BAG IVPB SCH (18:15)
[2020-08-26] MEDS ORDERED: Furosemide 100 MG/10 ML VIAL SLOW IVP SCH (18:15)
--- NOTE | 2020-08-26 18:21 | PDOC.BPN ---
- Brief Progress Note Encounter Date: 08/26/20 Encounter Time: 18:10 Called to assess patient due to code green. Dr. Watters had come to assess the patient for heart failure, and found her unresponsive. She was very lethargic. On exam she has rales bilaterally. She has been moved to the ICU. ABG was drawn by Dr. Watters, and these were conveyed to Dr. Waller. Will give a trial of BiPAP and then consider intubation if needed. Dr. Watters has also recommended giving a dose of Lasix 80mg IV. and starting a Milrionone drip. I have spoken with the patient's sister Emma over the phone to update her on the patient's condition. I have gotten consent for a central line from her. She would like her sister to remain a FULL CODE at this time.
[2020-08-26] MEDS ORDERED: Lidocaine 1% (PF) 30 ML VIAL ONE (18:27)
--- NOTE | 2020-08-26 19:30 | RAD ---
Exam: Chest one view HISTORY:Central line placement Comparison: 08/24/2020, 08/26/2020 FINDINGS: Cardiac silhouette:Stable cardiomegaly, sternotomy wires and left-sided defibrillator Aorta: Stable atherosclerosis Pulmonary vessels: Stable prominent Costophrenic angles: Stable bilateral effusions LUNGS: Stable bibasilar opacities. Lines and tubes: Interval placement of right-sided internal jugular vascular catheter with the distal tip projecting over the right atrium. Pneumothorax: None Osseous abnormalities: None IMPRESSION: 1. Interval placement of right-sided vascular catheter. No pneumothorax.
--- NOTE | 2020-08-26 19:32 | RAD ---
Exam: Chest one view HISTORY:Central line placement Comparison: 08/26/2020 at 7:02 PM FINDINGS: Cardiac silhouette:Stable cardiomegaly, sternotomy wires and left-sided fibrillator. Aorta: Stable atherosclerosis Pulmonary vessels: Normal Costophrenic angles: Stable bilateral pleural effusions LUNGS: Table multi focal interstitial opacities with more focal opacification in the left lung base. Lines and tubes: Interval adjustment of right-sided internal jugular vascular catheter. Catheter has been pulled back. Distal tip projects over the cavoatrial junction. Pneumothorax: None Osseous abnormalities: None IMPRESSION: Interval readjustment of a right-sided vascular catheter. Distal tip now projects over th e cavoatrial junction.
[2020-08-26] MEDS: Mometasone 100 MCG/Formoterol 5 MCG 120 PUFF INHALER INH SCH (19:59)
[2020-08-26] MEDS ORDERED: Amiodarone HCl 150 MG in Dextrose 5% in Water 100 ML IVPB SCH (20:00)
[2020-08-26] MEDS: Amiodarone HCl 450 MG in Dextrose 5% in Water 250 ML IVPB SCH (20:10)
[2020-08-26] MEDS ORDERED: Bacteriostatic Water 30 ML VIAL FS PRN (21:45)
--- NOTE | 2020-08-26 21:45 | OP ---
DATE OF PROCEDURE: 08/26/2020 PROCEDURE: Placement of central line at the right internal jugular position. INDICATION: Lack of access during critical care situation. OPERATORS: Geronimo Watters MD and Regina Mckeon. CONSENT: Consent was provided by family, taken by Dr. Steve White. ANESTHESIA:1% lidocaine was used locally about 10 mL. COMPLICATIONS: None DESCRIPTION OF PROCEDURE: The patient was prepared and draped with aseptic technique. Ultrasound was used to locate the right internal jugular vein. Seldinger technique was used to place a central line into the right internal jugular vein. All 3 ports quintin back and flushed well. Final position was adjusted using portable chest x- ray. The tip is now at the superior vena cava to right atrium junction and then it is about 5 cm from anchoring point of the neck. The followup chest x-ray did not show any pneumothorax, but it did show pulmonary edema corresponding to her acute on chronic heart failure. The patient tolerated the procedure without any complications. Job ID: [id number] MTDD
[2020-08-26] MEDS: Atorvastatin Calcium 20 MG TAB PO SCH (22:20)
--- NOTE | 2020-08-26 22:25 | CON ---
DATE OF CONSULTATION: 08/26/2020 TIME SPENT: 75 minutes of time including greater than 50% spent with the patient in our inpatient hospital. REASON FOR CONSULTATION: Acute respiratory failure related to COPD and CHF. HISTORY OF PRESENT ILLNESS: Ms. Lim is a 75-year-old female, who was initially admitted to this facility by the hospitalist group on 08/24/2020. She had an admitting diagnosis of decompensated systolic heart failure with underlying COPD. Her initial complaints were coughing and congestion. She was treated with diuretics. I can't tell that she received any IV steroids and at the time of placement in the ICU was not on any bronchodilator therapy. She was placed on BiPAP because of an elevated pCO2 this afternoon. After a couple hours of BiPAP, the ABG was repeated and her pCO2 was still about 77, although her pH was 7.27. She is obtunded and unable to give history at the current time. I have spoken extensively with her sister, who is medical power of tax associate attorney for the patient instead of her . PAST MEDICAL HISTORY: 1. Coronary artery disease. 2. Chronic obstructive pulmonary disease. 3. Chronic systolic heart failure. 4. Gastroesophageal reflux. 5. Hyperlipidemia. PAST SURGICAL HISTORY: 1. Mitral valve repair, bilateral knee replacement, coronary artery bypass grafting surgery. 2. Defibrillator placement. 3. Appendectomy. 4. Hysterectomy. 5. Bilateral tubal ligation. ALLERGIES: CODEINE AND MORPHINE. SOCIAL HISTORY: She is a heavy smoker. Does not consume alcohol. Does not use illicit drugs. She lives at home with her . Her health has been generally declining over the last several months. MEDICATIONS: Prior to admission, 1. Aspirin. 2. Atorvastatin. 3. Plavix. 4. Elavil. 5. Omeprazole. 6. Symbicort. 7. Levothyroxine. 8. . 9. Tramadol. REVIEW OF SYSTEMS: Cannot be obtained because the patient is obtunded. PHYSICAL EXAMINATION: vital signs: Heart rate 90, blood pressure 122/64, O2 sat 99%, respiratory rate 20. GENERAL: This is an elderly female, appears older than her stated age of 75. HEENT: She is edentulous. NECK: No adenopathy or JVD. LUNGS: She has poor air movement without wheezing. CARDIOVASCULAR: S1, S2, distant type, defibrillator palpable in left upper quadrant of chest. ABDOMEN: Soft and nontender. She has a left-sided colostomy. EXTREMITIES: No clubbing, cyanosis, or edema. LABORATORY DATA: ABG: PH 7.27, pCO2 of 77, PO2 100. White blood cell count 6.8, hematocrit 36.9, and platelet count 224. Sodium 141, potassium 4.7, chloride 100, CO2 of 31, BUN 45, creatinine 1.7, glucose 78. BNP 1331. Chest x-ray shows cardiomegaly. She has flattened diaphragms bilaterally, not much in the way of pulmonary edema at the time of this study. Echocardiogram shows EF of 20-25% with severe mitral regurgitation, elevated pulmonary artery pressures. ASSESSMENT: 1. Chronic systolic heart failure, which is considered decompensated. 2. Likely underlying chronic obstructive pulmonary disease exacerbation. 3. Multiple other medical problems as listed above. PLAN: I was asked by Dr. Geronimo Watters to evaluate this patient for potential intubation. My first question was in regard to the patient's code status and desires. Based on that, I called the patient's sister, Emma Stubbs, who has been charged with making medical decisions for the patient in place of the patient's , who is considered incompetent to make decisions. The patient's sister stated that she had several discussions with the patient regarding end of life issues and that her sister would not want to be placed on mechanical ventilation or intubated in the event of respiratory failure. She did state that the patient had desired DNR status before. Based on these conversations and with the sister's agreement, we have instituted DNR on the patient's chart. We will not be intubating the patient. If she can continue BiPAP and continue her cardiac drugs, then we can re-evaluate. I am comfortable with her pH being above 7.15 on the BiPAP. I would add bronchodilators. I also would add IV steroids as I think COPD is a significant component of her current decompensated state. I will be happy to follow with you while she is in the ICU. Job ID: [id number]
--- NOTE | 2020-08-26 23:24 | CON ---
DATE OF CONSULTATION: 08/26/2020 SERVICE: Advanced Heart Failure Transplant Cardiology Consulting Service. REASON FOR CONSULT: Management of acute on chronic heart failure. HISTORY OF PRESENT ILLNESS: I walked in the room and found Mrs. Lim obtunded. She will not respond to voice. She has somewhat a minimal response to chest rub. Bedside glucose check was 112. Her systolic blood pressure at that time was 121. A stat ABG was done. The ABG showed pH 7.24, pCO2 is 79.8, and pO2 86. Thus, she is in respiratory acidosis and also hypercapnia. She also did not have access and nurse could not place a second periphery. She was quickly transported to the ICU bed A5. Pulmonary was consulted. Per pulmonary direction, BiPAP was started with a rate of 20. Quick physical exam showed that she is quite edematous. She has a loud crackles in bilateral lungs. Lasix 80 mg IV was given. Milrinone was initiated. A quick interrogation also showed that she had 2 short runs of atrial fibrillation and 1 short run of ventricular tachycardia within last 24 hours, so consequently amiodarone bolus 150 mg IV and then a drip was started. This all done right after an urgent central line was placed in the right internal jugular vein. Since the patient was obtunded, I had to call her to find out the events that led to her admission. Three months ago, she was doing well at home. At that time she can walk about half a block and carry on daily home activities as much as she wanted. About a month ago, she was still doing well. Mr. Lim says that his began to decline about 3 weeks ago. She has more short of breath and becoming weaker. He also said that she will have bouts of inability to be aroused. She would fade out and her will have a hard time to wake her. At first, this was infrequent. However, as the days and weeks went by, her shortness of breath worsened and then her bouts of being nonresponsive increased. She was seen by her primary care. COVID-19 test was negative. She went home. However, the bouts of being nonresponsive persisted. Her family was really worried and brought her into the hospital. It was reported upon admission that she was at times unresponsive. CT scan was done but did no show a stroke. An EEG was also done, it was nonrevealing. It did not show seizure, however, it showed encephalopathic pattern, so she had a metabolic or perfusion cause of her difficulties. PAST MEDICAL HISTORY: 1. Coronary artery disease, post bypass. Her RUIZ to LAD graft is open. The RCA is completely occluded. Her vein graft to the obtuse marginal is still open. 2. She had severe mitral regurgitation that was reduced with MitraClip in 2019. 3. History of heart failure with reduced ejection fraction, EF ranging between 25% to 45% at different times. 4. Diabetes. 5. Hypertension. 6. Renal insufficiency. 7. Hypothyroidism. 8. It was thoroughly reported that she had a stroke in the past with weakness along the left side. 9. She also has a history of paroxysmal atrial fibrillation. This is verified with Dr. Jc. SOCIAL HISTORY: 1. She smoked for over 55 years, just quit about 3 months ago. 2. She does not drink alcohol. 3. She does not use illicit drugs. 4. She has been to her , Dominguez Lim, for over 55 years. They are still together. FAMILY HISTORY: Her father of myocardial infarction at age 60, was not able to get a clear information on her mother. CURRENT MEDICATIONS: When I walked in the room include: 1. Aspirin 81 mg daily. 2. Atorvastatin 20 mg q.h.s. 3. Carvedilol 6.25 mg b.i.d. 4. Plavix 75 mg daily. 5. Furosemide 20 mg IV daily. 6. Levothyroxine 75 mcg daily. 7. Dulera 100 mcg/5 mcg combination. 8. Protonix 40 mg daily. REVIEW OF SYSTEMS: Review of systems cannot be done because the patient was obtunded and cannot answer. PHYSICAL EXAMINATION: VITAL SIGNS: Latest vitals are sinus rhythm. Her cardiac rhythm is atrial sensed, V paced. Her heart rate is between 93 and 100, blood pressure is 104/48, oxygen saturation about 96%. GENERAL: She is minimally responsive. HEENT: EOMI. She has a BiPAP mask on. JVP is not accurate, but is suspected to be high at least 13 or 14 cm. PULMONARY: She has bilateral crackles, much worse on the right than left. CARDIAC: At times tachycardic. There is 3/6 holosystolic murmur at the apex with radiation to the left axilla. This is corresponding to severe mitral regurgitation. ABDOMEN: Soft, nontender. There is a colostomy bag in place in the left lower quadrant. EXTREMITIES: Lower extremities, she has a pitting edema from her feet all the way up to her thighs. Her extremities are cool to touch. LABORATORY DATA: Her chemistry values are sodium 141, potassium 4.7, chloride 100, bicarb is 31, BUN 45, creatinine 1.79, glucose about 78 just from this morning. Her echocardiogram from August 25, 2020, was reviewed, 1. Left ventricular inner diameter is 5.8 cm. Consequently, she has a dilated left ventricle. 2. Her left ventricular ejection fraction is 20%. 3. There is severe mitral regurgitation despite MitraClip. 4. She has a very dilated left atrium. 5. She has mild aortic regurgitation. 6. Her right ventricle is moderately dilated with depressed function. There is moderate to severe tricuspid regurgitation. She has trans tricuspid pressure gradient of at least 55 mmHg 7. There is dyskinetic septum with appearance of septal to lateral wall dyssynchrony 8. The IVC is dilated about 2.45 cm and does not collapse, so this corresponds to at least 15 mmHg. Thus, the right-sided pressure is about 70 mmHg. PROCEDUREs I performed the procedure of interrogating her PROCESSING SPECIALIST-D device. 1. It is a [employer] Viva XT PROCESSING SPECIALIST-D [id number]. 2. It has atrial lead, right ventricular lead, and left ventricular lead. 3. The setting is DDDR at 60 beats per minute with adaptive PROCESSING SPECIALIST Bi-V pacing. 4. He is currently A sensed, V paced, but since August 25 2020, there has been 1 run of ventricular tachycardia and 2 runs of atrial fibrillation. 5. Her thoracic impedance at baseline is about 70 and since May, it has a sharp drop down to 40. It shows that she has volume overload by impedance sensing. 6. She is currently 97.4% A sensed V paced, and 2.2% A sensed V sensed. Central line was placed in the right IJ. Please see separate procedure note (op report) ASSESSMENT: 75-year-old lady has most acute problem of hypercapnia, respiratory acidosis. This is causing her to be less responsive and more obtunded. If BiPAP does not work within 2 hours, she will need to be intubated. Her heart is not going to be able to tolerate low pH. She also likely to have [place] Heart Association stage C, [place] heart Association class 3B heart failure with reduced ejection fraction. She has combined systolic and diastolic dysfunctions. By echocardiogram and by exam, she has severe mitral regurgitation. She is suffering from acute on chronic heart failure due to severe mitral regurgitation. She also has underlying problem of ischemia. Per interrogations, she is also having paroxysmal atrial fibrillation and paroxysmal ventricular tachycardia. Furthermore, by chest x-ray and by exam, she is volume overloaded. So, we need to increase her cardiac output, relieve her volume overload, and control her arrhythmias. RECOMMENDATIONS: 1. Use Lasix 80 mg IV one dose now to provide some volume relief. 2. Start milrinone at 0.125 mcg/kg/minute. If the systolic blood pressure is over 100 after 1 hour, increase to 0.25 mcg/kg/minute. If her systolic blood pressure remains above 100 after another hour, then increase to 0.375 mcg/kg/minute. 3. Start amiodarone with 150 mg IV bolus followed by 1 mg/minute drip for 6 hours followed by 0.5 mg/minute drip and will keep this indefinitely. 4. Please draw second ABG to see if BiPAP is working or not. If not, we will contact dinkey engine firer/fireman for intubation 5. Plan for echocardiography guided PROCESSING SPECIALIST-D timing adjustment to increase cardiac performance. Critical Care time was 90 minutes. Job ID: [id number] MTDD
[2020-08-27] MEDS: methylPREDNISolone Sod Succ 40 MG VIAL IVP SCH ×3 (00:52→20:34)
[2020-08-27] MEDS: Amiodarone HCl 450 MG in Dextrose 5% in Water 250 ML IVPB SCH (03:38)
[2020-08-27 04:26] LABS: #Basophils 0.1 thou/uL (0.0-0.2); #Lymphocytes 0.2 thou/uL (1.20-3.40); #Monocytes 0.2 thou/uL (0.11-0.59); #Neutrophils 4.6 thou/uL (1.40-6.50); %Basophils 1.2 % (0.0-1.0); %Eosinophils 0.6 % (0.0-10.0); %Lymphocytes 4.7 % (21.0-51.0); %Monocytes 3.8 % (0.0-10.0); %Neutrophils 89.8 % (42.0-75.0); Hemoglobin 9.9 g/dL (12.0-16.0); Mean Corpuscular HGB CONC 29.7 g/dL (32.0-36.0); Mean Corpuscular Hemoglobin 25.3 pg (27.0-31.0); Mean Corpuscular Volume 85.4 fL (78.0-98.0); Mean Platelet Volume 9.5 fL (7.4-10.4); Platelet Count 209 thou/uL (130-400); RBC Distribution Width 15.3 % (11.5-14.5); White Blood Cell (WBC) Count 5.2 thou/uL (4.8-10.8)
[2020-08-27 04:44] LABS: Anion Gap 11 mmol/L (10-20); BUN (Urea Nitrogen) 42 mg/dL (9.8-20.1); Calc. Creatinine Clearance 33 mL/min (70-130); Calcium 9.3 mg/dL (7.8-10.44); Carbon Dioxide 37 mmol/L (23-31); Chloride 97 mmol/L (98-107); Glucose 113 mg/dL (83-110); Magnesium 1.9 mg/dL (1.6-2.6); Potassium 4.1 mmol/L (3.5-5.1); Sodium 141 mmol/L (136-145)
[2020-08-27] MEDS: Levothyroxine Sodium 75 MCG TAB PO SCH (06:20)
[2020-08-27] MEDS: Budesonide 0.5 MG/2 ML NEB NEB SCH ×2 (07:18→18:52)
[2020-08-27] MEDS: Mometasone 100 MCG/Formoterol 5 MCG 120 PUFF INHALER INH SCH ×2 (07:18→18:55)
[2020-08-27] MEDS: Carvedilol 3.125 MG TAB PO SCH (08:26)
[2020-08-27] MEDS: Aspirin Chewable 81 MG TAB PO SCH (08:26)
[2020-08-27] MEDS: Heparin 5,000 UNITS/ML VIAL SC SCH (08:26)
[2020-08-27] MEDS: Clopidogrel Bisulfate 75 MG TAB PO SCH (08:26)
--- NOTE | 2020-08-27 08:27 | PRG ---
DATE OF SERVICE: 08/27/2020 SUBJECTIVE: Ms. Lim looks 100% better today. She is awake, alert. She is complaining that she wants to eat. She was taken off the BiPAP after several hours last night. OBJECTIVE: VITAL SIGNS: On exam, her O2 saturations were running in the high 90s, heart rate 96, blood pressure 104/45, respiratory rate 23. 24-hour intake 639, output 1335. HEENT: Unremarkable. NECK: No adenopathy or JVD. LUNGS: Clear breath sounds. No wheezing. CARDIOVASCULAR: S1, S2. Paced. ABDOMEN: Soft and nontender. EXTREMITIES: She has some left forearm edema from an infiltrated IV. LABORATORY DATA: White blood cell count 5.2, hematocrit 33.3, and platelet count 209. Sodium 141, potassium 4.1, chloride 97, CO2 of 37, BUN 42, creatinine 1.5, and glucose 113. ASSESSMENT: 1. Severe chronic obstructive pulmonary disease with exacerbation - this was likely a large part of why she was decompensated last night. 2. Chronic systolic heart failure, currently milrinone and amiodarone. PLAN: The patient is definitely better after a combination of cardiac therapy and starting steroids and nebulization treatments. It is my opinion she could probably be transferred to telemetry as long as her drips are appropriate for that unit. I have already decreased her steroid dose. Continue low-dose Solu-Medrol for another couple of days and then probably change to oral steroids. Job ID: [id number]
[2020-08-27] MEDS: Milrinone Lactate/D5W 20 MG in Premix Bag 1 BAG IVPB SCH ×2 (08:28→20:35)
[2020-08-27] MEDS ORDERED: Furosemide 40 MG/4 ML VIAL SLOW IVP SCH (09:00)
[2020-08-27] MEDS ORDERED: Magnesium 2 GM/50 ML 2 GM in Premix Bag 1 BAG IVPB SCH (09:30)
[2020-08-27] MEDS ORDERED: Potassium Chloride 20 MEQ TAB PO SCH (09:30)
--- NOTE | 2020-08-27 09:38 | PDOC.HOSPP ---
- Subjective Encounter Date: 08/27/20 Encounter Time: 09:36 Subjective: Ms. Lim was seen today in follow-up of CHF exacerbation, and COPD. She is much improved this morning. She is now on a nasal canula, and breathing better. - Objective Vital Signs & Weight: Vital Signs (12 hours) Temp Pulse Resp Pulse Ox 08/27/20 08:00 97 08/27/20 07:18 67 20 93 L 08/27/20 07:17 92 20 93 L 08/27/20 07:11 93 L 08/27/20 07:00 98.6 F 08/27/20 05:30 91 L 08/27/20 01:34 97 21 H 100 08/27/20 01:32 94 23 H 98 08/26/20 22:34 86 21 H 98 08/26/20 22:31 90 21 H 98 Weight Admit Weight 138 lb 1.6 oz Weight 67 lb 8 oz Most Recent Monitor Data Heart Rate from ECG 100 NIBP 118/55 NIBP BP-Mean 76 Respiration from ECG 24 SpO2 97 I&O: 08/26/20 08/27/20 08/28/20 06:59 06:59 06:59 Intake Total 734 639.7 240 Output Total 1335 130 Balance 734 -695.3 110 Result Diagrams: 08/27/20 03:50 08/27/20 03:50 Additional Labs: Accuchecks 08/27/20 08/26/20 08/26/20 06:29 23:10 17:34 POC Glucose 115 H 101 H 112 H 08/26/20 08/26/20 16:46 10:38 POC Glucose 115 H 102 H Hospitalist ROS - Medication Medications: Active Medications Generic Name Dose Route Start Last Admin Trade Name Freq PRN Reason Stop Dose Admin Albuterol/Ipratropium 3 ml 08/26/20 22:30 08/27/20 07:17 Ipratropium/Albuterol Sulfate 3 Ml Neb NEB 3 ml [id number] ROHINI Administration Aspirin 81 mg 08/26/20 09:00 08/27/20 08:26 Aspirin Chewable 81 Mg Tab PO 81 mg DAILY ROHINI Administration Atorvastatin Calcium 20 mg 08/26/20 21:00 08/26/20 22:20 Atorvastatin Calcium 20 Mg Tab PO Not Given HS ROHINI Budesonide 0.5 mg 08/27/20 06:30 08/27/20 07:18 Budesonide 0.5 Mg/2 Ml Neb NEB 0.5 mg BID-RT ROHINI Administration Clopidogrel Bisulfate 75 mg 08/26/20 09:00 08/27/20 08:26 Clopidogrel Bisulfate 75 Mg Tab PO 75 mg DAILY ROHIIN Administration Dextrose/Water 25 gm 08/24/20 15:34 08/25/20 10:54 Dextrose 50% Abboject 50 Ml Syringe SLOW IVP 25 gm PRN PRN Administration Hypoglycemia Heparin Sodium (Porcine) 5,000 units 08/24/20 21:00 08/27/20 08:26 Heparin 5,000 Units/Ml Vial SC 5,000 units BID ROHINI Administration Milrinone Lactate/Dextrose 20 100 mls @ 2.381 mls/hr 08/26/20 20:00 08/27/20 08:28 mg/ Device IVPB 100 mls INF ROHINI Administration Protocol 0.125 MCG/KG/MIN Amiodarone HCl 450 mg/ 259 mls @ 0 mls/hr 08/26/20 20:00 08/27/20 03:38 Miscellaneous Medication 1 IVPB 259 mls each/ Dextrose/Water INF ROHINI Administration Protocol As Directed Levothyroxine Sodium 75 mcg 08/27/20 06:00 08/27/20 06:20 Levothyroxine Sodium 75 Mcg Tab PO 75 mcg 0600 ROHINI Administration Mometasone Furoate/Formoterol Fumar 1 puff 08/26/20 18:30 08/27/20 07:18 Mometasone 100 Mcg/Formoterol 5 Mcg 120 Puff Inhaler INH 1 puff BID-RT ROHINI Administration Pantoprazole Sodium 40 mg 08/26/20 09:00 08/27/20 08:26 Pantoprazole 40 Mg Tab PO 40 mg DAILY ROHINI Administration - Exam Eye: PERRL, anicteric sclera Heart: RRR, no murmur, no gallops, no rubs, normal peripheral pulses Respiratory: rales (at the bases, no wheezing) Gastrointestinal: soft, non-tender, non-distended, normal bowel sounds, no palpable masses, no hepatomegaly Extremities: no cyanosis, no edema Hosp A/P (1) Acute on chronic systolic heart failure, NYHA class 2 Code(s): I50.23 - ACUTE ON CHRONIC SYSTOLIC (CONGESTIVE) HEART FAILURE Status: Acute (2) TIA (transient ischemic attack) Code(s): G45.9 - TRANSIENT CEREBRAL ISCHEMIC ATTACK, UNSPECIFIED Status: Acute (3) CAD (coronary artery disease) Code(s): I25.10 - ATHSCL HEART DISEASE OF [place] CORONARY ARTERY W/O ANG PCTRS Status: Chronic (4) COPD (chronic obstructive pulmonary disease) Status: Chronic (5) GERD (gastroesophageal reflux disease) Code(s): K21.9 - GASTRO-ESOPHAGEAL REFLUX DISEASE WITHOUT ESOPHAGITIS Status: Chronic (6) Hypertension Code(s): I10 - ESSENTIAL (PRIMARY) HYPERTENSION Status: Chronic - Plan * Acute on chronic hypercapneic respiratory failure- due to COPD- Pulmonary input appreciated- Budesonide has been added as well as IV steroids * Acute on chronic systolic heart failure-better compensated- Cardiology and Heart failure Specialist input appreciated- continue Milrionone, and diuresing as tolerated * HTN-blood pressure is stable * TIA- aphasia has resolved- this may have been more a metabolic encephalopathy from decompensated CHF and COPD this other day * COPD- as above
--- NOTE | 2020-08-27 10:31 | PRG ---
DATE OF SERVICE: 08/27/2020 SERVICE: Advanced Heart Failure Cardiology Consult Service. SUBJECTIVE: Mrs. Safia Lim had a good night. At first, she was obtunded and with a high pCO2 about 79, she was placed on BiPAP because her sister communicated that she is DNR and does not want to be intubated. Milrinone was used. Amiodarone drip was started to control her paroxysmal AFib and Lasix at 80 mg IV with 1 dose was given. Furthermore, her COPD treatment was also restarted. This combination seems to have helped. She woke up this morning, alert and conversational. Right now, she states she is feeling good. She is not short of breath and was able to eat her breakfast. She wants to discuss her code status with her family. Right now, she states she does not want to be resuscitated or intubated. REVIEW OF SYSTEMS: GENERAL: There are no fever, chills, productive cough. HEENT: There is no change in vision, hearing, swallowing. PULMONARY: Please see HPI. CARDIAC: There is no chest pain, palpitations, or syncope. GI: She eats; however, she has a chronic ostomy bag. : She is on a [place] catheter. CURRENT MEDICATIONS: Include, 1. Amiodarone drip currently at 0.5 mg/minute. 2. Aspirin 81 mg daily. 3. Atorvastatin 20 mg p.o. q.h.s. 4. Budesonide 0.5 mg nebs b.i.d. 5. Carvedilol 6.25 mg twice a day. 6. Plavix 75 mg daily. 7. Lasix 20 mg IV daily. 8. Levothyroxine 75 mcg daily. 9. Methylprednisolone 20 mg IV. 10. Dulera 400/5 mcg combination one puff twice a day. 11. Protonix 40 mg daily. PHYSICAL EXAMINATION: TELEMETRY: Reviewed. She had one 7 to 8 beat run of wide-complex tachycardia about 5 o'clock this morning. She also has some frequent PVCs. Currently, she is A-sensed, V-paced. Her oxygen saturation is 96%. GENERAL: She is alert and conversational and talkative. This is a big change from last night, this is a good positive change. HEENT: Show EOMI. Oropharynx is benign with moist mucosa. NECK: JVP is elevated about 13 cm and there is a central in right IJ PULMONARY: There is left basilar crackles. There is soft, small extended right basilar crackles. CARDIAC: Tachycardic. Normal S1, S2. There is a loud 2/6 holosystolic murmur at the left upper sternal border. There is also a loud 3/6 holosystolic murmur at the apex with radiation to axilla. ABDOMEN: Soft, nontender. Positive bowel sounds. There is ostomy bag in place in her left lower quadrant abdominal area. EXTREMITIES: She has pitting edema just below her hip about her thighs. Also, she has a pitting edema at her calf and below. LABORATORY VALUES: This morning, sodium 141, potassium 4.1, chloride 97, bicarb 37, BUN 42, creatinine 1.48, magnesium 1.9. ASSESSMENT: 75-year-old lady has combination chronic obstructive pulmonary diseased exacerbation and also acute on chronic heart failure with reduced ejection fraction. With BiPAP and more aggressive treatment of her COPD, she seemed to have improved. Combination of milrinone and also higher dose of IV Lasix has provided significant amount of volume relief. She looks like that she will need an antiarrhythmic such as amiodarone to keep her AFib at bay and then also decrease chance of ventricular tachycardia. We will switch from carvedilol to Toprol-XL for better rate control and allow the heart to have more pressures. From the discussion, she will remain as DNI/DNR. RECOMMENDATIONS: Please see the following for recommendations: 1. Continue milrinone 0.375 mcg/kg/minute. We will continue this until she is euvolemic and then we will switch over to Entresto if it is possible. 2. Continue and finish 1 day of IV amiodarone. Afterwards at 2 hours before completion of amiodarone drip, start amiodarone 200 mg b.i.d. 3. Discontinue carvedilol. 4. Substitute carvedilol with Toprol-XL 25 mg p.o. q.12 hours. This is to provide better rate control. 5. Magnesium sulfate 2 g IV 1 dose now. 6. Please provide K-Dur 20 mEq daily. 7. Please change Lasix to 40 mg IV b.i.d. 8. Magnesium oxide 400 mg p.o. daily. 9. She can be moved out of the ICU. 10. The patient and family should conduct a family meeting to ensure that her wishes are met. 11. Consider Palliative Care consult. It has been a pleasure taking care of Mrs. Lim. If any questions, please give me a call. Total ICU time is 40 minutes. Job ID: [id number] MTDD
[2020-08-27] MEDS: HumaLOG 300 UNITS/3 ML VIAL SC PRN (11:44)
--- NOTE | 2020-08-27 13:15 | PDOC.CPN ---
- Subjective Date: 08/27/20 Time: 13:13 Interval history: She is doing much better this morning. She had a code green yesterday as she was found unresponsive thought to be in COPD exacerbation, hypercarbic and in worsening failure. She responded to IV lasix and milrinone drip as well as BiPAP. She is doing much better this morning. awake talking appropriately. Does not remember anything about yesterday evening. - Review of Systems General: denies: fever/chills, weight/appetite/sleep changes, night sweats, fatigue Respiratory: denies: cough, congestion, shortness of breath, exercise intolerance Cardiovascular: denies: chest pain, palpitation, edema, paroxysmal nocturnal dyspnea, orthopnea Gastrointestinal: denies: nausea, vomiting, diarrhea, constipation, abd pain, GI bleeding Musculoskeletal: denies: pain, tenderness, stiffness, swelling, arthr itis/arthralgias Neurological: denies: numbness, syncope, seizure, weakness - Objective Allergies/Adverse Reactions: Allergies Allergy/AdvReac Type Severity Reaction Status Date / Time codeine Allergy Intermediate itching Verified 11/08/19 21:55 morphine Allergy Intermediate Rash Verified 11/08/19 21:55 Visit Medications: Current Medications Acetaminophen (Acetaminophen 325 Mg Tab) 650 mg PO Q4H PRN PRN Reason: Headache/Fever/Mild Pain (1-3) Albuterol/Ipratropium (Ipratropium/Albuterol Sulfate 3 Ml Neb) 3 ml NEB [id number] [facility] Last Admin: 08/27/20 11:33 Dose: 3 ml Documented by: Amiodarone HCl (Amiodarone 200 Mg Tab) 200 mg PO BID [facility] Aspirin (Aspirin Chewable 81 Mg Tab) 81 mg PO DAILY [facility] Last Admin: 08/27/20 08:26 Dose: 81 mg Documented by: Atorvastatin Calcium (Atorvastatin Calcium 20 Mg Tab) 20 mg PO HS [facility] Last Admin: 08/26/20 22:20 Dose: Not Given Documented by: Budesonide (Budesonide 0.5 Mg/2 Ml Neb) 0.5 mg NEB BID-RT [facility] Last Admin: 08/27/20 07:18 Dose: 0.5 mg Documented by: Clopidogrel Bisulfate (Clopidogrel Bisulfate 75 Mg Tab) 75 mg PO DAILY [facility] Last Admin: 08/27/20 08:26 Dose: 75 mg Documented by: Dextrose/Water (Dextrose 50% Abboject 50 Ml Syringe) 25 gm SLOW IVP PRN PRN PRN Reason: Hypoglycemia Last Admin: 08/25/20 10:54 Dose: 25 gm Documented by: Furosemide (Furosemide 40 Mg/4 Ml Vial) 40 mg SLOW IVP BID [facility] Glucagon (Glucagon 1 Mg/Ml Vial) 1 mg IM PRN PRN PRN Reason: Hypoglycemia Heparin Sodium (Porcine) (Heparin 5,000 Units/Ml Vial) 5,000 units SC BID [facility] Last Admin: 08/27/20 08:26 Dose: 5,000 units Documented by: Dextrose/Water (D5w) 1,000 mls @ 0 mls/hr IV .Q0M PRN PRN Reason: Hypoglycemia Milrinone Lactate/Dextrose 20 (mg/ Device) 100 mls @ 2.381 mls/hr IVPB INF [facility]; Protocol Last Admin: 08/27/20 08:28 Dose: 100 mls Documented by: Amiodarone HCl 450 mg/Miscellaneous Medication 1 each/ Dextrose/Water 259 mls @ 0 mls/hr IVPB INF [facility]; Protocol Last Admin: 08/27/20 03:38 Dose: 259 mls Documented by: Insulin Human Lispro (Humalog 300 Units/3 Ml Vial) 0 units SC .MODERATE SLIDING SC PRN PRN Reason: Moderate Correctional Scale Last Admin: 08/27/20 11:44 Dose: 4 unit Documented by: Levothyroxine Sodium (Levothyroxine Sodium 75 Mcg Tab) 75 mcg PO 0600 [facility] Last Admin: 08/27/20 06:20 Dose: 75 mcg Documented by: Magnesium Oxide (Magnesium Oxide 400 Mg Tab) 400 mg PO DAILY [facility] Methylprednisolone Sodium Succinate (Methylprednisolone Sod Succ 40 Mg Vial) 20 mg IVP BID [facility] Metoprolol Succinate (Metoprolol Succinate Xl 25 Mg Tab) 25 mg PO Q12HR [facility] Mometasone Furoate/Formoterol Fumar (Mometasone 100 Mcg/Formoterol 5 Mcg 120 Puff Inhaler) 1 puff INH BID-RT [facility] Last Admin: 08/27/20 07:18 Dose: 1 puff Documented by: Pantoprazole Sodium (Pantoprazole 40 Mg Tab) 40 mg PO DAILY [facility] Last Admin: 08/27/20 08:26 Dose: 40 mg Documented by: Potassium Chloride (Potassium Chloride 20 Meq Tab) 20 meq PO DAILY ROHINI Sterile Water (Bacteriostatic Water 30 Ml Vial) 1 ml FS PRN PRN PRN Reason: RECONSTITUTION Vital Signs & Weight: Vital Signs Temp Pulse Resp Pulse Ox 08/27/20 12:00 98.7 F 08/27/20 11:33 92 20 99 08/27/20 08:00 97 08/27/20 07:18 67 20 93 L 08/27/20 07:17 92 20 93 L 08/27/20 07:11 93 L 08/27/20 07:00 98.6 F 08/27/20 05:30 91 L 08/27/20 01:34 97 21 H 100 08/27/20 01:32 94 23 H 98 Admit Weight 138 lb 1.6 oz Weight 67 lb 8 oz - Physical Exam General: alert & oriented x3 HEENT: mucus membranes moist Neck: supple neck Cardiac: regular rate and rhythm Lungs: normal breath sounds Neuro: grossly intact Abdomen: active bowel sounds Extremities: 1+ LE edema Skin: clear Musculoskeletal: no pain - Labs Result Diagrams: 08/27/20 03:50 08/27/20 03:50 Troponin/CKMB CK-MB (CK-2) 4.2 ng/mL (0-6.6) 08/24/20 13:21 Troponin I 0.298 ng/mL (< 0.028) H 08/24/20 19:18 - Telemetry Supraventricular conduction: atrial fibrillation - Assessment/Plan Assessment/Plan: 1. Acute on chronic systolic and diastolic heart failure 2. Mitral valve regurgitation s/p Mitraclip 3. Cardiogenic shock, improved. responding to milrinone. 4. Stage 3 CKD GFR 34 5. paroxysmal atrial fibrillation. 6. EF at 20-25% 7. COPD exacerbation with acute exacerbation. PLAN: - Agree with Milrinone and amiodarone drip. - Continue IV laisx - Full dose Lovneox for stroke prophylaxis, renal adjusted dose. Will stop heparin SQ. - Replace electrolytes as needed - Ok to transfer to telemetry floor.
[2020-08-27] MEDS: Amiodarone 200 MG TAB PO SCH (20:32)
[2020-08-27] MEDS: Atorvastatin Calcium 20 MG TAB PO SCH (20:33)
[2020-08-27] MEDS: Enoxaparin Sodium 80 MG/0.8 ML SYRINGE SC SCH (20:34)
[2020-08-27] MEDS: Furosemide 40 MG/4 ML VIAL SLOW IVP SCH (20:34)
[2020-08-28 04:47] LABS: #Lymphocytes 0.2 thou/uL (1.20-3.40); #Monocytes 0.5 thou/uL (0.11-0.59); #Neutrophils 7.9 thou/uL (1.40-6.50); %Basophils 0.1 % (0.0-1.0); %Eosinophils 0.2 % (0.0-10.0); %Lymphocytes 2.3 % (21.0-51.0); %Monocytes 5.2 % (0.0-10.0); %Neutrophils 92.2 % (42.0-75.0); Hemoglobin 9.8 g/dL (12.0-16.0); Mean Corpuscular HGB CONC 30.2 g/dL (32.0-36.0); Mean Corpuscular Hemoglobin 25.3 pg (27.0-31.0); Mean Corpuscular Volume 83.8 fL (78.0-98.0); Mean Platelet Volume 9.3 fL (7.4-10.4); Platelet Count 234 thou/uL (130-400); RBC Distribution Width 15.2 % (11.5-14.5); Red Blood Cell (RBC) Count 3.86 mill/uL (4.20-5.40); White Blood Cell (WBC) Count 8.6 thou/uL (4.8-10.8)
[2020-08-28 05:08] LABS: Anion Gap 12 mmol/L (10-20); BUN (Urea Nitrogen) 46 mg/dL (9.8-20.1); Calc. Creatinine Clearance 13 mL/min (70-130); Calcium 9.4 mg/dL (7.8-10.44); Carbon Dioxide 36 mmol/L (23-31); Chloride 95 mmol/L (98-107); Glucose 152 mg/dL (83-110); Sodium 139 mmol/L (136-145)
[2020-08-28] MEDS: Levothyroxine Sodium 75 MCG TAB PO SCH (05:37)
[2020-08-28] MEDS: Budesonide 0.5 MG/2 ML NEB NEB SCH ×2 (07:47→19:50)
[2020-08-28] MEDS: Mometasone 100 MCG/Formoterol 5 MCG 120 PUFF INHALER INH SCH ×2 (07:47→19:49)
[2020-08-28] MEDS: Milrinone Lactate/D5W 20 MG in Premix Bag 1 BAG IVPB SCH ×2 (08:48→20:46)
[2020-08-28] MEDS: Magnesium Oxide 400 MG TAB PO SCH (08:49)
[2020-08-28] MEDS: Furosemide 40 MG/4 ML VIAL SLOW IVP SCH (08:49)
[2020-08-28] MEDS: Clopidogrel Bisulfate 75 MG TAB PO SCH (08:49)
[2020-08-28] MEDS: Amiodarone 200 MG TAB PO SCH ×2 (08:49→20:44)
[2020-08-28] MEDS: Aspirin Chewable 81 MG TAB PO SCH (08:49)
[2020-08-28] MEDS: methylPREDNISolone Sod Succ 40 MG VIAL IVP SCH ×2 (08:50→20:44)
[2020-08-28] MEDS: Potassium Chloride 20 MEQ TAB PO SCH (08:50)
--- NOTE | 2020-08-28 11:29 | PRG ---
DATE OF SERVICE: 08/28/2020 SUBJECTIVE: Mrs. Lim had a good day. She was energetic, talkative and then stayed up quite well. She was moved from ICU back to the tele floor, and then she felt tired and sleepy this morning, but she was alert and be able to be aroused easily. There were no more instances of being obtunded. REVIEW OF SYSTEMS: GENERAL: There is no fever, chills, productive cough. HEENT: There is no change in vision, hearing, or swallowing. PULMONARY: She is breathing well. CARDIAC: There is no chest pain or syncope. GI: There is no nausea or vomiting. She has a longstanding colostomy in the left lower quadrant. MUSCULOSKELETAL: There is no complaint of joint or muscle pains. INTEGUMENT: There is no skin breakdown. NEUROLOGIC: There are no focal deficits or weaknesses. CURRENT MEDICATIONS: 1. DuoNeb q.4 hours. 2. Amiodarone 200 mg twice a day. 3. Aspirin 81 mg daily. 4. Atorvastatin 20 mg at bedtime. 5. Pulmicort 0.5 mg b.i.d. 6. Plavix 75 mg daily. 7. Enoxaparin 70 mg at 2100 hours. 8. Lasix 40 mg IV b.i.d. 9. Levothyroxine 75 mcg daily. 10. Magnesium oxide 400 mg daily. 11. Solu-Medrol 20 mg IV b.i.d. 12. Toprol-XL 25 mg q.12 hours. 13. Milrinone currently at 0.375 mcg/kg/minute. 14. Dulera 100 mcg/5 mcg combination. 15. Protonix 40 mg daily. 16. K-Dur 20 mEq daily. Telemetry was reviewed. She is in sinus tachycardia. It is A-sensed V-paced. She underwent optimization. After many attempts, the best possible optimization was done. She achieved EF about 30% on [employer]-D Bi V pacing. This is at milrinone 0.375 mcg/kg/minute. OBJECTIVE: VITAL SIGNS: Latest vitals are heart rate about 100, blood pressure 122/57. GENERAL: She is alert, conversational, speaking well, in bed. HEENT: EOMI. Oropharynx is benign with moist mucosa. NECK: Her JVP is about 13 cm. There is right IJ central line in place. PULMONARY: She has bilateral crackles from lower one-third of lungs. This could be pulmonary fibrosis too. CARDIAC: Tachycardic. Normal S1, S2. There is a loud 3/6 holosystolic murmur at the apex corresponding to severe mitral regurgitation. There is 3/6 holosystolic murmur at the left upper sternal border corresponding to tricuspid regurgitation. There are no gallops or rubs. ABDOMEN: Soft, nontender. She has a colostomy bag in place in the left lower quadrant. EXTREMITIES: She has some edema about her upper thighs, but in lower extremity there is edema in her calf, but there is no edema at feet. LABORATORY DATA: White cell count 8.6, hemoglobin at 9.8, and platelets at 234. Her chemistry showed sodium 139, potassium 4, chloride 95, bicarb 36, BUN 46, creatinine 1.82. Her 24-hour I and O is recorded as 640 in and 1335 out. ASSESSMENT: 75-year-old lady who has multiple problems. She has likely severe COPD exacerbation resulting in hypercapnia with respiratory acidosis. With much more aggressive COPD treatment, this has improved. She also has acute on chronic heart failure with reduced ejection fraction with severe mitral regurgitation. She is [place] Heart Association stage C, [place] Heart Association 3B heart failure with reduced ejection fraction with combined systolic and diastolic dysfunctions. EF improving only to 30% with aid of milrinone and optimizaton with severe mitral regurgitation. This is a very poor prognosis. Ideally, you will want to replace the mitral valve well before the EF went below 30%, so this is likely too late, and her social situation at home, really does not support chronic milrinone drip. At this point, we will focus on getting as much fluid off, recover her renal function and trying to find an oral regimen. In the near future, I will be trying to titrate off milrinone and replace it with Entresto. At this point, we will aim to recover her renal function. Please see the following for my recommendations. RECOMMENDATIONS: 1. Discontinue IV Lasix today. 2. Start Bumex 1 mg daily tomorrow. 3. Please do a noncontrast CT for pulmonary fibrosis. 4. Start spironolactone 12.5 mg p.o. daily. 5. Discontinue Partida catheter. 6. Please have PT/OT to work with patient as the patient needs to walk. 7. Please consider Palliative Care consultation if this is already not done so. Job ID: [id number] MTDD
--- NOTE | 2020-08-28 13:06 | CT ---
Exam: Chest CT without contrast HISTORY: Cough and shortness of breath. Evaluate for pulmonary fibrosis. COMPARISON: None FINDINGS: Lower neck and axilla: No evidence of lymphadenopathy. Limited evaluation the left axilla due to beam attenuation artifact Mediastinum: No mass, lymphadenopathy or hematoma. HEART: Cardiomegaly. No significant pericardial fluid. There are coronary calcifications Aorta: Atherosclerosis of the aorta. No evidence of aneurysm Subdiaphragmatic structures: No acute abnormality Pleural spaces: Moderate bilateral effusions Pneumothorax: None Trachea and central bronchi: Patent Right lung: Consolidation of the right lower lobe adjacent pleural effusion likely representing atele ctasis. Aspiration and/or pneumonia cannot be excluded. Remainder the right lung does not demonstrate consolidation Left lung: Consolidation left lower lobe adjacent pleural effusion likely represent atelectasis. Aspi ration and/or pneumonia cannot be excluded. Calcified granuloma in the posterior left upper lobe is noted. No lytic or blastic lesions in the osseous structures IMPRESSION: Cardiomegaly. Pleural effusion. Possible congestive heart failure. Superimposed bibasilar atelectasis , aspiration and/or pneumonia cannot be excluded.
--- NOTE | 2020-08-28 16:06 | PRG ---
DATE OF SERVICE: 08/28/2020 SUBJECTIVE: Safia Lim has no complaints. She says she feels well. She says she had about a 6-week decline and did not want to come to the hospital or go to a doctor's office prior to admission. OBJECTIVE: VITAL SIGNS: She is afebrile. Heart rate is 100, respiratory rate is 20, oximetry is 96 on 3 L, blood pressure 122/57. LUNGS: Clear. HEART: Regular rhythm. ABDOMEN: Soft. LABORATORY DATA: White count 8.6, hemoglobin 9.8, platelets 234. Sodium 139, potassium 4, chloride 95, bicarb 36, BUN 46, creatinine 1.82. Creatinine was 1.62 on admission. IMPRESSION: 1. Cardiomyopathy with ejection fraction of 20% to 30%. 2. Chronic obstructive pulmonary disease. 3. Pleural effusions on radiograph today. She had a CT ordered. Bibasilar atelectasis is also seen. Nothing to suggest that she has pulmonary fibrosis. 4. Calcified granulomas noted in the left upper lobe. We will see her as needed for the rest of the weekend. She appears to be stable. Job ID: [id number]
--- NOTE | 2020-08-28 17:41 | PDOC.HOSPP ---
- Subjective Encounter Date: 08/28/20 Encounter Time: 10:30 Subjective: Patient up in bed no complaints. - Objective Vital Signs & Weight: Vital Signs (12 hours) Temp Pulse Pulse Resp BP BP Pulse Ox 08/28/20 15:26 98.0 F 107 H 17 126/62 97 08/28/20 14:20 100 20 96 08/28/20 13:45 95 122/57 L 08/28/20 11:50 98.9 F 104 H 17 130/59 L 93 L 08/28/20 11:09 88 18 93 L 08/28/20 07:46 103 H 20 94 L 08/28/20 07:44 98.3 F 100 17 122/57 L 92 L Pulse Ox 08/28/20 15:26 08/28/20 14:20 08/28/20 13:45 94 L 08/28/20 11:50 08/28/20 11:09 08/28/20 07:46 08/28/20 07:44 Weight Admit Weight 138 lb 1.6 oz Weight 146 lb 12.8 oz Most Recent Monitor Data Heart Rate from ECG 93 NIBP 106/49 NIBP BP-Mean 68 Respiration from ECG 21 SpO2 94 I&O: 08/27/20 08/28/20 08/29/20 06:59 06:59 06:59 Intake Total 639.7 240 Output Total 1335 220 150 Balance -695.3 20 -150 Result Diagrams: 08/28/20 04:31 08/28/20 04:31 Additional Labs: Accuchecks 08/28/20 08/28/20 08/27/20 16:46 04:52 20:40 POC Glucose 173 H 155 H 151 H 08/27/20 17:45 POC Glucose 126 H Hospitalist ROS - Review of Systems Respiratory: denies: cough, dry, shortness of breath, hemoptysis, SOB with excertion, pleuritic pain, sputum, wheezing, other Cardiovascular: denies: chest pain, palpitations, orthopnea, paroxysmal noc. dyspnea, edema, light headedness, other Gastrointestinal: denies: nausea, vomiting, abdominal pain, diarrhea, constipation, melena, hematochezia, other - Medication Medications: Active Medications Generic Name Dose Route Start Last Admin Trade Name Freq PRN Reason Stop Dose Admin Albuterol/Ipratropium 3 ml 08/26/20 22:30 08/28/20 14:20 Ipratropium/Albuterol Sulfate 3 Ml Neb NEB 3 ml [id number] ROHINI Administration Amiodarone HCl 200 mg 08/27/20 21:00 08/28/20 08:49 Amiodarone 200 Mg Tab PO 200 mg BID ROHINI Administration Aspirin 81 mg 08/26/20 09:00 08/28/20 08:49 Aspirin Chewable 81 Mg Tab PO 81 mg DAILY ROHINI Administration Atorvastatin Calcium 20 mg 08/26/20 21:00 08/27/20 20:33 Atorvastatin Calcium 20 Mg Tab PO 20 mg HS ROHINI Administration Budesonide 0.5 mg 08/27/20 06:30 08/28/20 07:47 Budesonide 0.5 Mg/2 Ml Neb NEB 0.5 mg BID-RT ROHINI Administration Clopidogrel Bisulfate 75 mg 08/26/20 09:00 08/28/20 08:49 Clopidogrel Bisulfate 75 Mg Tab PO 75 mg DAILY ROHINI Administration Dextrose/Water 25 gm 08/24/20 15:34 08/25/20 10:54 Dextrose 50% Abboject 50 Ml Syringe SLOW IVP 25 gm PRN PRN Administration Hypoglycemia Enoxaparin Sodium 70 mg 08/27/20 21:00 08/27/20 20:34 Enoxaparin Sodium 80 Mg/0.8 Ml Syringe SC 70 mg 2100 ROHINI Administration Milrinone Lactate/Dextrose 20 100 mls @ 2.381 mls/hr 08/26/20 20:00 08/28/20 08:48 mg/ Device IVPB 100 mls INF ROHINI Administration Protocol 0.125 MCG/KG/MIN Amiodarone HCl 450 mg/ 259 mls @ 0 mls/hr 08/26/20 20:00 08/27/20 03:38 Miscellaneous Medication 1 IVPB 259 mls each/ Dextrose/Water INF ROHINI Administration Protocol As Directed Insulin Human Lispro 0 units 08/24/20 15:34 08/27/20 11:44 Humalog 300 Units/3 Ml Vial SC 4 unit .MODERATE SLIDING SC PRN Administration Moderate Correctional Scale Levothyroxine Sodium 75 mcg 08/27/20 06:00 08/28/20 05:37 Levothyroxine Sodium 75 Mcg Tab PO 75 mcg 0600 ROHINI Administration Magnesium Oxide 400 mg 08/28/20 09:00 08/28/20 08:49 Magnesium Oxide 400 Mg Tab PO 400 mg DAILY ROHINI Administration Methylprednisolone Sodium Succinate 20 mg 08/27/20 21:00 08/28/20 08:50 Methylprednisolone Sod Succ 40 Mg Vial IVP 20 mg BID ROHINI Administration Metoprolol Succinate 25 mg 08/27/20 21:00 08/28/20 08:50 Metoprolol Succinate Xl 25 Mg Tab PO 25 mg Q12HR ROHINI Administration Mometasone Furoate/Formoterol Fumar 1 puff 08/26/20 18:30 08/28/20 07:47 Mometasone 100 Mcg/Formoterol 5 Mcg 120 Puff Inhaler INH 1 puff BID-RT ROHINI Administration Pantoprazole Sodium 40 mg 08/26/20 09:00 08/28/20 08:49 Pantoprazole 40 Mg Tab PO 40 mg DAILY ROHINI Administration Potassium Chloride 20 meq 08/28/20 09:00 08/28/20 08:50 Potassium Chloride 20 Meq Tab PO 20 meq DAILY ROHINI Administration - Exam Neck: negative: supple, symmetric, no JVD, no thyromegaly, no lymphadenopathy, n o carotid bruit, JVD Heart: negative: RRR, no murmur, no gallops, no rubs, normal peripheral pulses, irregular, diminshed peripheral pulses, murmur present, II/IV, III/IV Respiratory: negative: CTAB, no wheezes, no rales, no ronchi, normal chest expa nsion, no tachypnea, normal percussion, rales, rhonchi, tachypneic, wheezes Gastrointestinal: negative: soft, non-tender, non-distended, normal bowel sounds, no palpable masses, no hepatomegaly, no splenomegaly, no bruit, no guarding, no rigidity, tender to palpation, distended, diminished bowl sounds, voluntary guarding Hosp A/P (1) Acute hypercapnic respiratory failure Code(s): J96.02 - ACUTE RESPIRATORY FAILURE WITH HYPERCAPNIA Status: Acute (2) Acute on chronic systolic (congestive) heart failure Code(s): I50.23 - ACUTE ON CHRONIC SYSTOLIC (CONGESTIVE) HEART FAILURE Status: Acute (3) Recurrent falls Code(s): R29.6 - REPEATED FALLS Status: Acute (4) CAD (coronary artery disease) Code(s): I25.10 - ATHSCL HEART DISEASE OF [place] CORONARY ARTERY W/O ANG PCTRS Status: Chronic (5) Acute kidney injury Code(s): N17.9 - ACUTE KIDNEY FAILURE, UNSPECIFIED Status: Acute (6) Severe mitral regurgitation Code(s): I34.0 - NONRHEUMATIC MITRAL (VALVE) INSUFFICIENCY Status: Acute - Plan We will continue IV steroids. She received Lasix. There was some concern about possible aphasia however this was attributed most likely to her respiratory distress yesterday. Patient's Partida catheter will be DC'd. She will be gotten up with physical therapy. She is currently on oxygen. She did receive a few doses of Lasix.
[2020-08-28] MEDS: Atorvastatin Calcium 20 MG TAB PO SCH (20:44)
[2020-08-28] MEDS: Enoxaparin Sodium 80 MG/0.8 ML SYRINGE SC SCH (20:44)
[2020-08-29 04:54] LABS: #Lymphocytes 0.3 thou/uL (1.20-3.40); #Monocytes 0.3 thou/uL (0.11-0.59); #Neutrophils 7.8 thou/uL (1.40-6.50); %Eosinophils 0.2 % (0.0-10.0); %Monocytes 3.9 % (0.0-10.0); %Neutrophils 92.9 % (42.0-75.0); Hemoglobin 9.3 g/dL (12.0-16.0); Mean Corpuscular Hemoglobin 25.1 pg (27.0-31.0); Mean Corpuscular Volume 83.7 fL (78.0-98.0); Mean Platelet Volume 9.3 fL (7.4-10.4); Platelet Count 235 thou/uL (130-400); RBC Distribution Width 15.1 % (11.5-14.5); White Blood Cell (WBC) Count 8.4 thou/uL (4.8-10.8)
[2020-08-29 04:57] LABS: Anion Gap 12 mmol/L (10-20); BUN (Urea Nitrogen) 55 mg/dL (9.8-20.1); Calc. Creatinine Clearance 27 mL/min (70-130); Calcium 9.6 mg/dL (7.8-10.44); Carbon Dioxide 36 mmol/L (23-31); Chloride 94 mmol/L (98-107); Glucose 139 mg/dL (83-110); Potassium 4.4 mmol/L (3.5-5.1); Sodium 138 mmol/L (136-145)
[2020-08-29] MEDS: Levothyroxine Sodium 75 MCG TAB PO SCH (05:18)
[2020-08-29] MEDS ORDERED: Bumetanide 1 MG TAB PO SCH (07:30)
[2020-08-29] MEDS ORDERED: Spironolactone 25 MG TAB PO SCH (08:00)
[2020-08-29] MEDS: Aspirin Chewable 81 MG TAB PO SCH (08:36)
[2020-08-29] MEDS: methylPREDNISolone Sod Succ 40 MG VIAL IVP SCH ×2 (08:36→20:21)
[2020-08-29] MEDS: Magnesium Oxide 400 MG TAB PO SCH (08:37)
[2020-08-29] MEDS: Clopidogrel Bisulfate 75 MG TAB PO SCH (08:37)
[2020-08-29] MEDS: Potassium Chloride 20 MEQ TAB PO SCH (08:37)
[2020-08-29] MEDS: Amiodarone 200 MG TAB PO SCH ×2 (08:37→20:22)
[2020-08-29] MEDS ORDERED: Furosemide 40 MG/4 ML VIAL SLOW IVP SCH (09:00)
[2020-08-29] MEDS: Budesonide 0.5 MG/2 ML NEB NEB SCH ×2 (09:05→18:53)
[2020-08-29] MEDS: Mometasone 100 MCG/Formoterol 5 MCG 120 PUFF INHALER INH SCH ×2 (09:05→18:49)
[2020-08-29] MEDS: Milrinone Lactate/D5W 20 MG in Premix Bag 1 BAG IVPB SCH ×2 (09:43→20:34)
[2020-08-29] MEDS ORDERED: Magnesium 2 GM/50 ML 2 GM in Premix Bag 1 BAG IVPB SCH (11:15)
--- NOTE | 2020-08-29 12:05 | PRG ---
DATE OF SERVICE: 08/29/2020 SERVICE: Advanced Heart Failure Cardiology Consult Service. SUBJECTIVE: . Safia Lim had a deteriorating day. Partida catheter was taken out, so she can have more mobility. She said that she was able to walk some. Apparently, she was interactive during the day. She told me that she felt really tired afterwards. She told me this morning she felt really really exhausted, just wants to sleep all day. REVIEW OF SYSTEMS: GENERAL: There is no fever, chills, or productive cough. HEENT: There is no change in vision, hearing, or swallowing. PULMONARY: She does not complain of short of breath. However, she is a little bit more short of breath this morning. CARDIAC: She does not complain of chest pain or palpitation. 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 : she maybe incontinent MUSCULOSKELETAL: There are no new complaints of muscle or joint pains. INTEGUMENT: There is no new skin breakdown. NEUROLOGIC: There are no focal deficits or weakness. However, she appears to have encephalopathic pattern. CURRENT MEDICATIONS: Include; 1. Albuterol and ipratropium nebs q.4 hours. 2. Amiodarone 20 mg b.i.d. 3. Aspirin 81 mg daily. 4. Atorvastatin 20 mg at bedtime. 5. Budesonide 0.5 mg b.i.d. 6. Plavix 75 mg daily. 7. Enoxaparin 70 mg subcutaneously daily. 8. Apparently, there was an extra dose of Lasix 40 mg IV that was given this morning. 9. Levothyroxine 75 mcg daily. 10. Solu-Medrol 20 mg IV b.i.d. 11. Toprol-XL 25 mg q.12 hours. 12. Milrinone currently at 0.375 mcg/kg per minute. 13. Dulera 100 mcg/5 mcg one puff b.i.d. 14. Protonix 40 mg daily. 15. K-Dur 20 mEq daily. PHYSICAL EXAMINATION: Telemetry was reviewed. She has occasional PAC/PVC. There was no atrial fibrillation, also there was no ventricular tachycardia. So, this has been good. VITAL SIGNS: Blood pressure ranged between 120 to 130, diastolic blood pressure ranged between 57 to 64. In's and out's are not documented. GENERAL: She is sleepy, but arousable well, responds correctly to question, but then after answering questions, she goes back to sleep. HEENT: EOMI. Oropharynx is benign with moist mucosa. NECK: Her JVP is elevated about 13 cm. She has a right internal jugular venous central line. PULMONARY: There are bibasilar crackles, but good air movement to top 2/3. CARDIAC: Tachycardia. Normal S1 and S2. There is a loud 3/6 holosystolic murmur with radiation to the left axilla. There is 3/6 holosystolic murmur at the left upper sternal border, corresponding to tricuspid regurgitation. ABDOMEN: Soft, nontender. Positive bowel sounds. She has a colostomy in the left lower quadrant. EXTREMITIES: Her lower extremities have pitting edema around her calves, but then there is no more pitting edema around her thighs, so her pitting edema has shifted downward. LABORATORY VALUES: White cell count 8.4, hemoglobin 9.3, platelets are 235. Her chemistry; sodium 138, potassium 4.4, chloride 94, bicarb 36, BUN 55, creatinine 1.92, magnesium 1.9. ASSESSMENT: 75-year-old lady, has significant health problems that do not have a solutions. She has severe chronic obstructive pulmonary disease with exacerbation, who has hypercapnia. After reassessment, she most likely resides in [place] Heart Association stage D and also [place] Heart Association class 4 heart failure with reduced ejection fraction with combined systolic and diastolic dysfunctions. Her paroxysmal atrial fibrillation and her paroxysmal ventricular tachycardia have been quieted. This was helpful. Her dyssynchrony has been minimized. Her ventricular function was augmented with milrinone. This combination helped her for a while. Unfortunately, with severe mitral regurgitation continuing, all of these maneuvers only provide delay. Currently, she has a rising BUN and creatinine despite reduced diuresis. This indicates that there is still insufficient cardiac output. She is much more fatigued this morning. This could be insufficient cardiac output and potential worsening of her respiratory status. With her frailty, low EF, and colostomy in place, and severe chronic obstructive pulmonary disease, she is not a candidate for mitral valve replacement. She is definitely not a candidate for LVAD. She might be able to use milrinone chronically for palliative care. With severe heart failure and likely severe chronic obstructive pulmonary disease, perhaps the best course of action will be to consult Hospice. She does not have an intervention that can turn this around. Please see the following for my recommendations; 1. Stop all diuretics. 2. Increase milrinone to 0.5 mcg/kg per minute. 3. Please provide magnesium sulfate 2 g IV one dose now. 4. Please consider consulting Hospice Care. 5. Please consider using BiPAP overnight, so that this would help her. It has been a pleasure taking care of Ms. Lim. If you have any questions, please give me a call. The total visitation time is 50 minutes today. Job ID: [id number] MTDD
[2020-08-29] MEDS: Enoxaparin Sodium 80 MG/0.8 ML SYRINGE SC SCH (20:21)
[2020-08-29] MEDS: Atorvastatin Calcium 20 MG TAB PO SCH (20:22)
[2020-08-30 05:09] LABS: #Lymphocytes 0.2 thou/uL (1.20-3.40); #Monocytes 0.3 thou/uL (0.11-0.59); #Neutrophils 5.9 thou/uL (1.40-6.50); %Basophils 0.5 % (0.0-1.0); %Eosinophils 0.1 % (0.0-10.0); %Lymphocytes 2.7 % (21.0-51.0); %Monocytes 5.2 % (0.0-10.0); %Neutrophils 91.5 % (42.0-75.0); Hemoglobin 9.3 g/dL (12.0-16.0); Mean Corpuscular HGB CONC 30.9 g/dL (32.0-36.0); Mean Corpuscular Hemoglobin 25.7 pg (27.0-31.0); Mean Corpuscular Volume 83.2 fL (78.0-98.0); Mean Platelet Volume 9.2 fL (7.4-10.4); Platelet Count 212 thou/uL (130-400); RBC Distribution Width 15.5 % (11.5-14.5); Red Blood Cell (RBC) Count 3.62 mill/uL (4.20-5.40); White Blood Cell (WBC) Count 6.4 thou/uL (4.8-10.8)
[2020-08-30 05:33] LABS: BUN (Urea Nitrogen) 59 mg/dL (9.8-20.1); Calc. Creatinine Clearance 24 mL/min (70-130); Calcium 9.7 mg/dL (7.8-10.44); Glucose 161 mg/dL (83-110)
[2020-08-30 05:41] LABS: Anion Gap 14 mmol/L (10-20); Carbon Dioxide 34 mmol/L (23-31); Chloride 95 mmol/L (98-107); Potassium 4.9 mmol/L (3.5-5.1); Sodium 138 mmol/L (136-145)
[2020-08-30] MEDS: Levothyroxine Sodium 75 MCG TAB PO SCH (06:57)
[2020-08-30] MEDS: Budesonide 0.5 MG/2 ML NEB NEB SCH ×2 (07:01→19:48)
[2020-08-30] MEDS: Mometasone 100 MCG/Formoterol 5 MCG 120 PUFF INHALER INH SCH ×2 (07:16→19:48)
[2020-08-30] MEDS: Milrinone Lactate/D5W 20 MG in Premix Bag 1 BAG IVPB SCH ×3 (07:24→18:44)
[2020-08-30] MEDS: Aspirin Chewable 81 MG TAB PO SCH (07:43)
[2020-08-30] MEDS: Potassium Chloride 20 MEQ TAB PO SCH (07:43)
[2020-08-30] MEDS: Clopidogrel Bisulfate 75 MG TAB PO SCH (07:43)
[2020-08-30] MEDS: Amiodarone 200 MG TAB PO SCH ×2 (07:43→20:48)
[2020-08-30] MEDS: Magnesium Oxide 400 MG TAB PO SCH (07:43)
[2020-08-30] MEDS: methylPREDNISolone Sod Succ 40 MG VIAL IVP SCH (07:44)
--- NOTE | 2020-08-30 10:04 | PRG ---
DATE OF SERVICE: SUBJECTIVE: The patient is sleeping, appears comfortable. OBJECTIVE: VITAL SIGNS: On exam, temperature 98.1, pulse 92, respirations 18, O2 saturation 97% on 2 L, blood pressure 130/68. HEENT: Unremarkable. NECK: No adenopathy or JVD. ABDOMEN: Soft. EXTREMITIES: No edema. ASSESSMENT: 1. Cardiomyopathy. 2. Chronic obstructive pulmonary disease. PLAN: I will go ahead and switch her to oral steroids. Continue the nebs. The patient will likely need some type of nursing home. Job ID: [id number]
--- NOTE | 2020-08-30 13:31 | PRG ---
DATE OF SERVICE: 08/30/2020 SUBJECTIVE: Mrs. Lim had a variable day yesterday. She started out being confused and also very fatigued and tired. Milrinone was up titrated to 0.5 mcg/kg/minute. She also had 3 hours of BiPAP last night. This morning, she is doing much better. She is saying she is feeling better, more energetic and she is lucid. However, she loudly complains about the BiPAP. She said that she wants to throw the BiPAP machine out of window. Per Dr. Liz and nursing staff, she only tolerated about 3 hour BiPAP yesterday. However, she did receive Lasix 40 mg IV during the day. A long discussion took place about her situation. She understands that her heart failure is getting worse and that she is not a candidate for mitral valve replacement. She also understands the severity of her COPD. With the inability to have definitive therapy that can reverse the situation, she is getting worse. She is already DNR. She said that she lived a good life. She has agreed to go on hospice. However, she does want milrinone to be continued to help her to feel better. REVIEW OF SYSTEMS: GENERAL: There is no fever, chills, productive cough. HEENT: There is no change in the vision, hearing, or swallowing. However, she does have a nose bleed. PULMONARY: She is not complaining of shortness of breath right now. She does have some expiratory wheezes. CARDIAC: She does not complain of chest pain or syncope. GI. She does not complain of nausea or vomiting. : She may be incontinent. MUSCULOSKELETAL: She does not complain of muscle and joint pain. INTEGUMENT: She said her left arm is puffy and has been like that since the incident with IV placement. NEUROLOGIC: There are no new focal deficits or weaknesses. CURRENT MEDICATIONS: Include 1. Albuterol and ipratropium nebs q.4 hours. 2. Amiodarone 200 mg b.i.d. 3. Elavil, which is an amitriptyline 50 mg at bedtime. 4. Aspirin 81 mg daily. 5. Atorvastatin 20 mg at bedtime. 6. Budesonide, which is Pulmicort 0.5 mg b.i.d. 7. Plavix 75 mg daily. 8. Enoxaparin 70 mg once a day subcutaneous injection. 9. Levothyroxine 75 mcg daily. 10. Magnesium oxide 400 mg daily. 11. Toprol-XL 25 mg q.12 hours. 12. Milrinone currently at 0.5 mcg/kg/minute. 13. Dulera 100/5 mcg inhaler twice a day. 14. Protonix 40 mEq daily. 15. K-Dur 20 mEq daily. 16. Prednisone 20 mg daily. PHYSICAL EXAMINATION: Telemetry was reviewed. She is in sinus rhythm/sinus tachycardia. There is no hand of ventricular tachycardia or atrial fibrillation. VITAL SIGNS: When I was at bedside, heart rate 97, blood pressure 121/69. GENERAL: She was alert and conversational, very lucid, not short of breath while talking to me and quite energetic. HEENT: EOMI. Oropharynx is benign with moist mucosa. NECK: Her JVP is about 13 cm. She has a right IJ central line in place. PULMONARY: She has decreased breath sounds and slight crackles in bilateral bases and then there is also expiratory wheeze. CARDIAC: Tachycardic. Normal S1, S2. There is a loud 3/6 holosystolic murmur at the apex with radiation to the left axilla. There is also 3/6 systolic murmur at the left upper sternal border. So, she likely to have severe mitral regurgitation and likely moderate to severe tricuspid regurgitation. ABDOMEN: Soft, nontender. Positive bowel sounds. There is a colostomy bag in the left lower quadrant that is quite full this morning. EXTREMITIES: There is pitting edema about 1 cm from feet to her calf and then to her knee. There is some pitting edema about the thigh, so she is getting a little bit more edematous too. LABORATORY DATA: This morning are, white cell count 6.4, hemoglobin 9.3, platelet at 212. Her chemistry from today is sodium 138, potassium 4.9, chloride 95, bicarb 34, BUN 59, creatinine 2.11. Her [employer]-D device was interrogated. 1. It is a [employer] model VIVA XT [address] [address]-D [id number] device. 2. It has atrial lead, right ventricular lead and left ventricular lead. 3. The current settings are DDDR at lower rate limit of 60. 4. It is [employer] under adaptive Bi V pacing mode. 5. With preferential LV over RV pacing. 6. Her ventricular fibrillation, right ventricular tachycardia and ventricular tachycardia detections are off and treatments are off. Thus, her defibrillator portion has been turned off. ASSESSMENT: 75-year-old lady has continued worsening of heart function. For a while she improved with milrinone and elimination of paroxysmal atrial fibrillation. However, this did not last. Continued elevation of BUN and creatinine despite only getting diuretics once per day showed that she still has inadequate cardiac output despite all the medical and pacemaker adjustments. It is not clear what helped her so much between yesterday and today. It could be up titration of milrinone. It could be just 3 hours of BiPAP. However, with her severe cardiomyopathy , her frailty and already colostomy in place that she is not a candidate for any type of surgical intervention. The severe mitral regurgitation is a mechanical problem that cannot be solved or reversed medically. Thus, the best thing to do at this point is help her to transition to hospice care. She understands this situation. She wants to be able to go home to spend some time with her dogs and her . Please see the following for my recommendations. RECOMMENDATIONS: 1. Stop potassium supplement for now because her potassium is going too high. 2. Continue milrinone at 0.5 mcg/kg/minute. 3. Please place PICC in her right arm. She will need this for IV access and eventual milrinone infusion for residential. This will also allow the right IJ central line to be pulled in the near future. 4. Please consult Palliative Care/Hospice to help her transition. It has been a pleasure taking care of Mrs. Lim. If any question, please give me a call. This visit took about 55 minutes including long period of conversation discussing potential end of life care. Job ID: [id number] [facility]ERShelby
--- NOTE | 2020-08-30 14:56 | PRG ---
DATE OF SERVICE: 08/30/2020 SUBJECTIVE: Ms. Lim is actually feeling somewhat better. Her breathing has improved to some degree. OBJECTIVE: VITAL SIGNS: Her blood pressure 136/67, pulse 90. LUNGS: Clear. CARDIAC: Normal S1, normal S2. She still has a loud holosystolic murmur at the apex. ABDOMEN: Soft, nontender. ASSESSMENT: 1. Congestive heart failure systolic and diastolic, combined, near end-stage. 2. Stage 4 renal failure. Creatinine 2.11. 3. She is on milrinone. PLAN: Palliative care is the appropriate treatment at this time. We are trying to arrange for hospice as an outpatient. Job ID: [id number]
--- NOTE | 2020-08-30 15:42 | PDOC.HOSPP ---
- Subjective Encounter Date: 08/29/20 Encounter Time: 12:30 Subjective: Patient appears very confused today. Spoke with heart failure will transfer patient put her on BiPAP as needed - Objective Vital Signs & Weight: Vital Signs (12 hours) Temp Pulse Pulse Resp BP BP BP 08/30/20 15:11 98.5 F 98 23 H 108/65 08/30/20 14:35 104 H 16 08/30/20 14:00 102 H 122/44 L 08/30/20 12:11 98.9 F 95 18 136/67 08/30/20 11:45 94 12 08/30/20 10:14 94 23 H 133/74 08/30/20 09:50 94 133/74 08/30/20 07:15 98.1 F 92 18 138/68 08/30/20 07:02 08/30/20 07:01 93 12 08/30/20 03:42 98.0 F 95 18 119/52 L Pulse Ox Pulse Ox 08/30/20 15:11 98 08/30/20 14:35 08/30/20 14:00 97 08/30/20 12:11 97 08/30/20 11:45 08/30/20 10:14 96 08/30/20 09:50 97 08/30/20 07:15 97 08/30/20 07:02 93 L 08/30/20 07:01 08/30/20 03:42 93 L Weight Admit Weight 138 lb 1.6 oz Weight 144 lb Most Recent Monitor Data Heart Rate from ECG 93 NIBP 106/49 NIBP BP-Mean 68 Respiration from ECG 21 SpO2 94 I&O: 08/29/20 08/30/20 08/31/20 06:59 06:59 06:59 Intake Total 490 Output Total 150 Balance -150 490 Result Diagrams: 08/30/20 05:02 08/30/20 05:02 Additional Labs: Accuchecks 08/30/20 08/30/20 08/29/20 10:30 05:08 16:39 POC Glucose 119 H 148 H 99 Hospitalist ROS - Review of Systems Other: Patient is confused - Medication Medications: Active Medications Generic Name Dose Route Start Last Admin Trade Name Freq PRN Reason Stop Dose Admin Albuterol/Ipratropium 3 ml 08/26/20 22:30 08/30/20 14:35 Ipratropium/Albuterol Sulfate 3 Ml Neb NEB 3 ml [id number] ROHINI Administration Amiodarone HCl 200 mg 08/27/20 21:00 08/30/20 07:43 Amiodarone 200 Mg Tab PO 200 mg BID ROHINI Administration Aspirin 81 mg 08/26/20 09:00 08/30/20 07:43 Aspirin Chewable 81 Mg Tab PO 81 mg DAILY ROHINI Administration Atorvastatin Calcium 20 mg 08/26/20 21:00 08/29/20 20:22 Atorvastatin Calcium 20 Mg Tab PO 20 mg HS ROHINI Administration Budesonide 0.5 mg 08/27/20 06:30 08/30/20 07:01 Budesonide 0.5 Mg/2 Ml Neb NEB 0.5 mg BID-RT ROHINI Administration Clopidogrel Bisulfate 75 mg 08/26/20 09:00 08/30/20 07:43 Clopidogrel Bisulfate 75 Mg Tab PO 75 mg DAILY ROHINI Administration Dextrose/Water 25 gm 08/24/20 15:34 08/25/20 10:54 Dextrose 50% Abboject 50 Ml Syringe SLOW IVP 25 gm PRN PRN Administration Hypoglycemia Enoxaparin Sodium 70 mg 08/27/20 21:00 08/29/20 20:21 Enoxaparin Sodium 80 Mg/0.8 Ml Syringe SC 70 mg 2100 ROHINI Administration Milrinone Lactate/Dextrose 20 100 mls @ 9.525 mls/hr 08/26/20 20:00 08/30/20 07:54 mg/ Device IVPB 100 mls INF ROHINI Administration Protocol 0.5 MCG/KG/MIN Amiodarone HCl 450 mg/ 259 mls @ 0 mls/hr 08/26/20 20:00 08/27/20 03:38 Miscellaneous Medication 1 IVPB 259 mls each/ Dextrose/Water INF ROHINI Administration Protocol As Directed Insulin Human Lispro 0 units 08/24/20 15:34 08/27/20 11:44 Humalog 300 Units/3 Ml Vial SC 4 unit .MODERATE SLIDING SC PRN Administration Moderate Correctional Scale Levothyroxine Sodium 75 mcg 08/27/20 06:00 08/30/20 06:57 Levothyroxine Sodium 75 Mcg Tab PO 75 mcg 0600 ROHINI Administration Magnesium Oxide 400 mg 08/28/20 09:00 08/30/20 07:43 Magnesium Oxide 400 Mg Tab PO 400 mg DAILY ROHINI Administration Metoprolol Succinate 25 mg 08/27/20 21:00 08/30/20 07:42 Metoprolol Succinate Xl 25 Mg Tab PO 25 mg Q12HR ROHINI Administration Mometasone Furoate/Formoterol Fumar 1 puff 08/26/20 18:30 08/30/20 07:16 Mometasone 100 Mcg/Formoterol 5 Mcg 120 Puff Inhaler INH 1 puff BID-RT ROHINI Administration Sodium Chloride 10 ml 08/29/20 21:00 08/30/20 07:43 Flush - Normal Saline 10 Ml Syringe IVF 10 ml Q12HR ROHINI Administration - Exam Neck: negative: supple, symmetric, no JVD, no thyromegaly, no lymphadenopathy, no carotid bruit, JVD Heart: negative: RRR, no murmur, no gallops, no rubs, normal peripheral pulses, irregular, diminshed peripheral pulses, murmur present, II/IV, III/IV Respiratory: negative: CTAB, no wheezes, no rales, no ronchi, normal chest expansion, no tachypnea, normal percussion, rales, rhonchi, tachypneic, wheezes Gastrointestinal: negative: soft, non-tender, non-distended, normal bowel sounds, no palpable masses, no hepatomegaly, no splenomegaly, no bruit, no guarding, no rigidity, tender to palpation, distended, diminished bowl sounds, voluntary guarding Hosp A/P (1) Acute hypercapnic respiratory failure Code(s): J96.02 - ACUTE RESPIRATORY FAILURE WITH HYPERCAPNIA Status: Acute (2) Acute on chronic systolic (congestive) heart failure Code(s): I50.23 - ACUTE ON CHRONIC SYSTOLIC (CONGESTIVE) HEART FAILURE Status: Acute (3) Recurrent falls Code(s): R29.6 - REPEATED FALLS Status: Acute (4) CAD (coronary artery disease) Code(s): I25.10 - ATHSCL HEART DISEASE OF [place] CORONARY ARTERY W/O ANG PCTRS Status: Chronic (5) Acute kidney injury Code(s): N17.9 - ACUTE KIDNEY FAILURE, UNSPECIFIED Status: Acute (6) Severe mitral regurgitation Code(s): I34.0 - NONRHEUMATIC MITRAL (VALVE) INSUFFICIENCY Status: Acute - Plan We will continue IV steroids. She received Lasix. There was some concern about possible aphasia however this was attributed most likely to her respiratory distress yesterday. Patient's Partida catheter will be DC'd. She will be gotten up with physical therapy. She is currently on oxygen. She did receive a few doses of Lasix. 08/29 patient appears very obtunded. We will transfer her to [facility] and start her on as needed BiPAP. I spoke with heart failure physician Dr. Watters patient's overall prognosis is very poor. Currently on milrinone. We will continue to diurese the patient. However given her metabolic alkalosis would not help her hypercapnia. Will hold off on the diuretics for now.
--- NOTE | 2020-08-30 15:45 | PDOC.HOSPP ---
- Subjective Encounter Date: 08/30/20 Encounter Time: 11:00 Subjective: Patient more awake today compared to yesterday - Objective Vital Signs & Weight: Vital Signs (12 hours) Temp Pulse Pulse Resp BP BP BP 08/30/20 15:11 98.5 F 98 23 H 108/65 08/30/20 14:35 104 H 16 08/30/20 14:00 102 H 122/44 L 08/30/20 12:11 98.9 F 95 18 136/67 08/30/20 11:45 94 12 08/30/20 10:14 94 23 H 133/74 08/30/20 09:50 94 133/74 08/30/20 07:15 98.1 F 92 18 138/68 08/30/20 07:02 08/30/20 07:01 93 12 Pulse Ox Pulse Ox 08/30/20 15:11 98 08/30/20 14:35 08/30/20 14:00 97 08/30/20 12:11 97 08/30/20 11:45 08/30/20 10:14 96 08/30/20 09:50 97 08/30/20 07:15 97 08/30/20 07:02 93 L 08/30/20 07:01 Weight Admit Weight 138 lb 1.6 oz Weight 144 lb Most Recent Monitor Data Heart Rate from ECG 93 NIBP 106/49 NIBP BP-Mean 68 Respiration from ECG 21 SpO2 94 I&O: 08/29/20 08/30/20 08/31/20 06:59 06:59 06:59 Intake Total 490 Output Total 150 Balance -150 490 Result Diagrams: 08/30/20 05:02 08/30/20 05:02 Additional Labs: Accuchecks 08/30/20 08/30/20 08/29/20 10:30 05:08 16:39 POC Glucose 119 H 148 H 99 Hospitalist ROS - Review of Systems Cardiovascular: denies: chest pain, palpitations, orthopnea, paroxysmal noc. dyspnea, edema, light headedness, other Gastrointestinal: denies: nausea, vomiting, abdominal pain, diarrhea, constipation, melena, hematochezia, other Genitourinary: denies: dysuria, frequency, incontinence, hematuria, retention, other - Medication Medications: Active Medications Generic Name Dose Route Start Last Admin Trade Name Freq PRN Reason Stop Dose Admin Albuterol/Ipratropium 3 ml 08/26/20 22:30 08/30/20 14:35 Ipratropium/Albuterol Sulfate 3 Ml Neb NEB 3 ml [id number] ROHINI Administration Amiodarone HCl 200 mg 08/27/20 21:00 08/30/20 07:43 Amiodarone 200 Mg Tab PO 200 mg BID ROHINI Administration Aspirin 81 mg 08/26/20 09:00 08/30/20 07:43 Aspirin Chewable 81 Mg Tab PO 81 mg DAILY ROHINI Administration Atorvastatin Calcium 20 mg 08/26/20 21:00 08/29/20 20:22 Atorvastatin Calcium 20 Mg Tab PO 20 mg HS ROHINI Administration Budesonide 0.5 mg 08/27/20 06:30 08/30/20 07:01 Budesonide 0.5 Mg/2 Ml Neb NEB 0.5 mg BID-RT ROHINI Administration Clopidogrel Bisulfate 75 mg 08/26/20 09:00 08/30/20 07:43 Clopidogrel Bisulfate 75 Mg Tab PO 75 mg DAILY ROHINI Administration Dextrose/Water 25 gm 08/24/20 15:34 08/25/20 10:54 Dextrose 50% Abboject 50 Ml Syringe SLOW IVP 25 gm PRN PRN Administration Hypoglycemia Enoxaparin Sodium 70 mg 08/27/20 21:00 08/29/20 20:21 Enoxaparin Sodium 80 Mg/0.8 Ml Syringe SC 70 mg 2100 ROHINI Administration Milrinone Lactate/Dextrose 20 100 mls @ 9.525 mls/hr 08/26/20 20:00 08/30/20 07:54 mg/ Device IVPB 100 mls INF ROHINI Administration Protocol 0.5 MCG/KG/MIN Amiodarone HCl 450 mg/ 259 mls @ 0 mls/hr 08/26/20 20:00 08/27/20 03:38 Miscellaneous Medication 1 IVPB 259 mls each/ Dextrose/Water INF ROHINI Administration Protocol As Directed Insulin Human Lispro 0 units 08/24/20 15:34 08/27/20 11:44 Humalog 300 Units/3 Ml Vial SC 4 unit .MODERATE SLIDING SC PRN Administration Moderate Correctional Scale Levothyroxine Sodium 75 mcg 08/27/20 06:00 08/30/20 06:57 Levothyroxine Sodium 75 Mcg Tab PO 75 mcg 0600 ROHINI Administration Magnesium Oxide 400 mg 08/28/20 09:00 08/30/20 07:43 Magnesium Oxide 400 Mg Tab PO 400 mg DAILY ROHINI Administration Metoprolol Succinate 25 mg 08/27/20 21:00 08/30/20 07:42 Metoprolol Succinate Xl 25 Mg Tab PO 25 mg Q12HR ROHINI Administration Mometasone Furoate/Formoterol Fumar 1 puff 08/26/20 18:30 08/30/20 07:16 Mometasone 100 Mcg/Formoterol 5 Mcg 120 Puff Inhaler INH 1 puff BID-RT ROHINI Administration Sodium Chloride 10 ml 08/29/20 21:00 08/30/20 07:43 Flush - Normal Saline 10 Ml Syringe IVF 10 ml Q12HR ROHINI Administration - Exam Neck: negative: supple, symmetric, no JVD, no thyromegaly, no lymphadenopathy, no carotid bruit, JVD Heart: negative: RRR, no murmur, no gallops, no rubs, normal peripheral pulses, irregular, diminshed peripheral pulses, murmur present, II/IV, III/IV Respiratory: negative: CTAB, no wheezes, no rales, no ronchi, normal chest expansion, no tachypnea, normal percussion, rales, rhonchi, tachypneic, wheezes Gastrointestinal: negative: soft, non-tender, non-distended, normal bowel sounds, no palpable masses, no hepatomegaly, no splenomegaly, no bruit, no guarding, no rigidity, tender to palpation, distended, diminished bowl sounds, voluntary guarding Hosp A/P (1) Acute hypercapnic respiratory failure Code(s): J96.02 - ACUTE RESPIRATORY FAILURE WITH HYPERCAPNIA Status: Acute (2) Acute on chronic systolic (congestive) heart failure Code(s): I50.23 - ACUTE ON CHRONIC SYSTOLIC (CONGESTIVE) HEART FAILURE Status: Acute (3) Recurrent falls Code(s): R29.6 - REPEATED FALLS Status: Acute (4) CAD (coronary artery disease) Code(s): I25.10 - ATHSCL HEART DISEASE OF [place] CORONARY ARTERY W/O ANG PCTRS Status: Chronic (5) Acute kidney injury Code(s): N17.9 - ACUTE KIDNEY FAILURE, UNSPECIFIED Status: Acute (6) Severe mitral regurgitation Code(s): I34.0 - NONRHEUMATIC MITRAL (VALVE) INSUFFICIENCY Status: Acute - Plan We will continue IV steroids. She received Lasix. There was some concern about possible aphasia however this was attributed most likely to her respiratory distress yesterday. Patient's Partida catheter will be DC'd. She will be gotten up with physical therapy. She is currently on oxygen. She did receive a few doses of Lasix. 08/29 patient appears very obtunded. We will transfer her to [facility] and start her on as needed BiPAP. I spoke with heart failure physician Dr. Watters patient's overall prognosis is very poor. Currently on milrinone. We will continue to diurese the patient. However given her metabolic alkalosis would not help her hypercapnia. Will hold off on the diuretics for now. 08/30 patient more awake today able to converse. She has agreed on hospice. I will also get the [employer] rep to see if a portable [employer] can be arranged for her. She will probably go home on a milrinone drip per heart failure.
[2020-08-30 16:46] VITALS: BMI 27.1
[2020-08-30] MEDS: HumaLOG 300 UNITS/3 ML VIAL SC PRN (18:21)
[2020-08-30] MEDS: Amitriptyline HCl 25 MG TAB PO SCH (20:47)
[2020-08-30] MEDS: Atorvastatin Calcium 20 MG TAB PO SCH (20:48)
[2020-08-30] MEDS: Enoxaparin Sodium 80 MG/0.8 ML SYRINGE SC SCH (20:48)
[2020-08-31 05:11] LABS: #Lymphocytes 0.5 thou/uL (1.20-3.40); #Neutrophils 5.8 thou/uL (1.40-6.50); %Basophils 0.1 % (0.0-1.0); %Eosinophils 0.3 % (0.0-10.0); %Lymphocytes 6.7 % (21.0-51.0); %Monocytes 13.5 % (0.0-10.0); %Neutrophils 79.5 % (42.0-75.0); Hemoglobin 8.7 g/dL (12.0-16.0); Mean Corpuscular HGB CONC 30.3 g/dL (32.0-36.0); Mean Corpuscular Volume 82.6 fL (78.0-98.0); Mean Platelet Volume 8.9 fL (7.4-10.4); Platelet Count 199 thou/uL (130-400); RBC Distribution Width 15.5 % (11.5-14.5); Red Blood Cell (RBC) Count 3.47 mill/uL (4.20-5.40); White Blood Cell (WBC) Count 7.3 thou/uL (4.8-10.8)
[2020-08-31] MEDS: Levothyroxine Sodium 75 MCG TAB PO SCH (05:39)
[2020-08-31] MEDS: Milrinone Lactate/D5W 20 MG in Premix Bag 1 BAG IVPB SCH ×2 (05:39→18:58)
[2020-08-31 05:41] LABS: Anion Gap 9 mmol/L (10-20); BUN (Urea Nitrogen) 64 mg/dL (9.8-20.1); Calc. Creatinine Clearance 29 mL/min (70-130); Calcium 9.6 mg/dL (7.8-10.44); Carbon Dioxide 36 mmol/L (23-31); Chloride 94 mmol/L (98-107); Glucose 123 mg/dL (83-110); Potassium 4.9 mmol/L (3.5-5.1); Sodium 134 mmol/L (136-145)
[2020-08-31] MEDS: Budesonide 0.5 MG/2 ML NEB NEB SCH ×2 (07:45→19:09)
[2020-08-31] MEDS: Mometasone 100 MCG/Formoterol 5 MCG 120 PUFF INHALER INH SCH ×2 (07:46→19:08)
--- NOTE | 2020-08-31 09:36 | PRG ---
DATE OF SERVICE: 08/31/2020 SUBJECTIVE: The patient was off the floor when I came to visit this morning. OBJECTIVE: VITAL SIGNS: Temperature 97.4, pulse 101, respirations 17, O2 saturation 96% on 2 L. GENERAL: She is downstairs getting a PICC line. ASSESSMENT: 1. End-stage heart disease. 2. Chronic obstructive pulmonary disease. PLAN: She is apparently going home on a milrinone drip. I would taper her prednisone over of a couple weeks. No further pulmonary recommendations at this time. Job ID: [id number]
--- NOTE | 2020-08-31 09:48 | SPC ---
Right upper extremity PICC placement sonographic guided HISTORY: Heart failure. FINDINGS: After explaining the procedure and answering all questions, the right upper extremity was p repped and draped in usual sterile fashion. Sterile technique, buffered local anesthesia, sonographic guidance, and a 22-gauge needle were used t o carefully access the right brachial vein. Standard technique was used to place the tip of a 5 [place] single lumen PICC so that the tip lies at the level of the superior vena cava. The catheter was flushed and secured externally. Patient tolerated the procedure well and was returned in unchanged condition. IMPRESSION : Right upper extremity PICC is ready for use.
--- NOTE | 2020-08-31 10:20 | PRG ---
DATE OF SERVICE: 08/31/2020 SUBJECTIVE: Ms. Lim had an uneventful day. She said she was able to walk a little bit. She said that she was able to urinate only 4 times. She was also felt tired overnight, slept hard. This morning, she is more difficult to arouse. She was still arousable and answer question correctly. REVIEW OF SYSTEMS: GENERAL: No fever, chills, or productive cough. HEENT: There is no change in vision, hearing, or swallowing. PULMONARY: There is no change in her respiratory status. She does not have sensation of short of breath while at rest. CARDIAC: There is no chest pains or syncope. GI: She is able to eat, but she has chronic colostomy. : She said that she is able to urinate on her own. MUSCULOSKELETAL: There is no complaint of joint or muscle pains. INTEGUMENT: She still has left upper extremity swelling. NEUROLOGIC: There are no focal deficits or weaknesses. CURRENT MEDICATIONS: 1. Albuterol and ipratropium nebs q.4 hours. 2. Amiodarone 200 mg twice a day. 3. Amitriptyline 50 mg at bedtime. 4. Aspirin 81 mg daily. 5. Atorvastatin 20 mg at bedtime. 6. Budesonide 0.5 mg neb twice a day. 7. Plavix 75 mg daily. 8. Enoxaparin 70 mg subcutaneous every night. 9. Sliding scale insulin. 10. Levothyroxine 75 mcg daily. 11. Magnesium oxide 400 mg daily. 12. Toprol-XL 25 mg q.12 hours. 13. Milrinone 0.5 mcg/kg/minute. 14. Dulera 100 mcg/5 mcg, combination. 15. Protonix 40 mg daily. 16. Prednisone 20 mg daily. PHYSICAL EXAMINATION: Her telemetry was reviewed. It is predominantly A-sensed V-paced. There was no concerning arrhythmias. There is no atrial fibrillation. There is no ventricular tachycardia. VITAL SIGNS: Her latest vitals are heart rate 101, blood pressure 126/65. GENERAL: She is a sleepy but arousable and will answer question correctly. Looks a little bit more fatigued than yesterday. HEENT: Show EOMI. Oropharynx is benign with moist mucosa. NECK: Her JVP is about 13 cm. There is a right internal jugular central line in place. There are no signs of infection. PULMONARY: There are bibasilar crackles. CARDIAC: Tachycardia. Normal S1, S2. There is loud 3/6 holosystolic murmur at the apex and there is loud 3/6 holosystolic murmur at the left upper sternal border. So, she has severe mitral regurgitation, severe tricuspid regurgitation. ABDOMEN: Soft, nontender. There is a colostomy bag in the left lower quadrant. EXTREMITIES: She has about 1 cm pitting edema from her feet up to near her knees. LABORATORY VALUES: Today are white cell count 7.3, hemoglobin 8.7, platelets at 199. Her chemistry values today show sodium 134, potassium 4.9, chloride 94, bicarb at 36, creatinine at 1.74; so this is improvement. However, her BUN nudged up a little bit at 64. ASSESSMENT: 75-year-old lady has two severe problems that does not have solutions. She has severe chronic obstructive pulmonary disease with hypercapnia that can result in respiratory acidosis. She also has severe mitral regurgitation that is not correctable due her severe heart failure status and has outlasted the mitral clip. She resides in likely [place] [employer] stage D, [place] Heart Association class 4 heart failure with reduced ejection fraction with combined systolic and diastolic dysfunctions. Atrial fibrillation has been stopped. Paroxysmal ventricular tachycardia has been stopped. HEAT TREATER-D has been adjusted to maximize function. All of these combination was not able to provide enough cardiac output. Milrinone is used to provide enough cardiac output so she can retain her renal function and have overall body function. She is volume overloaded. She will likely need every other day large doses of Lasix. It has been shown that 40 mg IV Lasix did not produce sufficient effect. In the past, IV Lasix 80 mg provided much better effect. So I would like to suggest when needed on every other day basis do Lasix 80 mg IV. Please also check an albumin. She also could be having low albumin issue. For now, the best long-term course of action would be home hospice with milrinone for comfort care. RECOMMENDATIONS: 1. Continue milrinone 0.5 mcg/kg/minute. 2. Help her to go on hospice with milrinone for comfort. 3. Start acetazolamide 250 mg daily, so this may help. 4. When needed, Lasix 80 mg IV perhaps every other day. 5. Please check albumin. Supplement albumin as needed to provide better diuresis on data of the diuretics. 6. Please [address] PICC to support chronic milrinone infusion. 7. Please consult Palliative Care-Hospice. It has been a pleasure taking care of Ms. Safia Lim. If any question, please give me a call. This visit lasted 40 minutes. Job ID: [id number] MTDD
[2020-08-31] MEDS: Aspirin Chewable 81 MG TAB PO SCH (10:38)
[2020-08-31] MEDS: Amiodarone 200 MG TAB PO SCH ×2 (10:38→22:03)
[2020-08-31] MEDS: Clopidogrel Bisulfate 75 MG TAB PO SCH (10:39)
[2020-08-31] MEDS: predniSONE 20 MG TAB PO SCH (10:39)
[2020-08-31] MEDS: Magnesium Oxide 400 MG TAB PO SCH (10:39)
[2020-08-31 11:00] LABS: ALT (SGPT) 17 U/L (8-55); AST (SGOT) 22 U/L (5-34); Alkaline Phosphatase 54 U/L (40-110); Anion Gap 9 mmol/L (10-20); BUN (Urea Nitrogen) 66 mg/dL (9.8-20.1); Bilirubin, Total 0.4 mg/dL (0.2-1.2); Calc. Creatinine Clearance 29 mL/min (70-130); Calcium 9.8 mg/dL (7.8-10.44); Carbon Dioxide 37 mmol/L (23-31); Chloride 94 mmol/L (98-107); Globulin 2.9 g/dL (2.4-3.5); Glucose 99 mg/dL (83-110); Potassium 5.1 mmol/L (3.5-5.1); Protein, Total 5.9 g/dL (6.0-8.3); Sodium 135 mmol/L (136-145)
--- NOTE | 2020-08-31 14:36 | PDOC.HOSPP ---
- Subjective Encounter Date: 08/31/20 Encounter Time: 10:30 Subjective: Patient up in bed no complaints. - Objective Vital Signs & Weight: Vital Signs (12 hours) Temp Pulse Resp BP BP Pulse Ox 08/31/20 11:28 97.8 F 95 17 120/68 96 08/31/20 08:00 96 08/31/20 07:46 96 08/31/20 07:45 102 H 20 96 08/31/20 07:36 97.4 F L 101 H 17 126/65 96 08/31/20 05:43 98.2 F 103 H 20 126/66 94 L 08/31/20 04:25 97 08/31/20 04:00 98.2 F 105 H 17 133/67 97 08/31/20 03:50 94 L Weight Admit Weight 138 lb 1.6 oz Weight 144 lb 3.2 oz Most Recent Monitor Data Heart Rate from ECG 93 NIBP 106/49 NIBP BP-Mean 68 Respiration from ECG 21 SpO2 94 I&O: 08/30/20 08/31/20 09/01/20 06:59 06:59 06:59 Intake Total 490 1550 360 Output Total 850 Balance 490 700 360 Result Diagrams: 08/31/20 04:59 08/31/20 10:24 Additional Labs: Accuchecks 08/31/20 08/31/20 08/30/20 11:27 05:36 20:46 POC Glucose 98 126 H 151 H 08/30/20 16:40 POC Glucose 172 H Hospitalist ROS - Review of Systems Respiratory: denies: cough, dry, shortness of breath, hemoptysis, SOB with excertion, pleuritic pain, sputum, wheezing, other Cardiovascular: denies: chest pain, palpitations, orthopnea, paroxysmal noc. dyspnea, edema, light headedness, other Gastrointestinal: denies: nausea, vomiting, abdominal pain, diarrhea, constipation, melena, hematochezia, other - Medication Medications: Active Medications Generic Name Dose Route Start Last Admin Trade Name Freq PRN Reason Stop Dose Admin Albuterol/Ipratropium 3 ml 08/26/20 22:30 08/31/20 11:13 Ipratropium/Albuterol Sulfate 3 Ml Neb NEB 3 ml [id number] ROHINI Administration Amiodarone HCl 200 mg 08/27/20 21:00 08/31/20 10:38 Amiodarone 200 Mg Tab PO 200 mg BID ROHINI Administration Amitriptyline HCl 50 mg 08/30/20 21:00 08/30/20 20:47 Amitriptyline Hcl 25 Mg Tab PO 50 mg HS ROHINI Administration Aspirin 81 mg 08/26/20 09:00 08/31/20 10:38 Aspirin Chewable 81 Mg Tab PO 81 mg DAILY ROHINI Administration Atorvastatin Calcium 20 mg 08/26/20 21:00 08/30/20 20:48 Atorvastatin Calcium 20 Mg Tab PO 20 mg HS ROHINI Administration Budesonide 0.5 mg 08/27/20 06:30 08/31/20 07:45 Budesonide 0.5 Mg/2 Ml Neb NEB 0.5 mg BID-RT ROHINI Administration Clopidogrel Bisulfate 75 mg 08/26/20 09:00 08/31/20 10:39 Clopidogrel Bisulfate 75 Mg Tab PO 75 mg DAILY ROHINI Administration Dextrose/Water 25 gm 08/24/20 15:34 08/25/20 10:54 Dextrose 50% Abboject 50 Ml Syringe SLOW IVP 25 gm PRN PRN Administration Hypoglycemia Enoxaparin Sodium 70 mg 08/27/20 21:00 08/30/20 20:48 Enoxaparin Sodium 80 Mg/0.8 Ml Syringe SC Not Given 2100 [facility] Milrinone Lactate/Dextrose 20 100 mls @ 9.525 mls/hr 08/26/20 20:00 08/31/20 05:39 mg/ Device IVPB 100 mls INF ROHINI Administration Protocol 0.5 MCG/KG/MIN Amiodarone HCl 450 mg/ 259 mls @ 0 mls/hr 08/26/20 20:00 08/27/20 03:38 Miscellaneous Medication 1 IVPB 259 mls each/ Dextrose/Water INF ROHINI Administration Protocol As Directed Insulin Human Lispro 0 units 08/24/20 15:34 08/30/20 18:21 Humalog 300 Units/3 Ml Vial SC 2 unit .MODERATE SLIDING SC PRN Administration Moderate Correctional Scale Levothyroxine Sodium 75 mcg 08/27/20 06:00 08/31/20 05:39 Levothyroxine Sodium 75 Mcg Tab PO 75 mcg 0600 ROHINI Administration Magnesium Oxide 400 mg 08/28/20 09:00 08/31/20 10:39 Magnesium Oxide 400 Mg Tab PO 400 mg DAILY ROHINI Administration Metoprolol Succinate 25 mg 08/27/20 21:00 08/31/20 10:38 Metoprolol Succinate Xl 25 Mg Tab PO 25 mg Q12HR ROHINI Administration Mometasone Furoate/Formoterol Fumar 1 puff 08/26/20 18:30 08/31/20 07:46 Mometasone 100 Mcg/Formoterol 5 Mcg 120 Puff Inhaler INH 1 puff BID-RT ROHINI Administration Pantoprazole Sodium 40 mg 08/31/20 09:00 08/31/20 10:38 Pantoprazole 40 Mg Tab PO 40 mg DAILY ROHINI Administration Prednisone 20 mg 08/31/20 09:00 08/31/20 10:39 Prednisone 20 Mg Tab PO 20 mg DAILY ROHINI Administration Sodium Chloride 10 ml 08/29/20 21:00 08/31/20 10:40 Flush - Normal Saline 10 Ml Syringe IVF 10 ml Q12HR ROHINI Administration - Exam Heart: negative: RRR, no murmur, no gallops, no rubs, normal peripheral pulses, irregular, diminshed peripheral pulses, murmur present, II/IV, III/IV Respiratory: negative: CTAB, no wheezes, no rales, no ronchi, normal chest expansion, no tachypnea, normal percussion, rales, rhonchi, tachypneic, wheezes Gastrointestinal: negative: soft, non-tender, non-distended, normal bowel sound s, no palpable masses, no hepatomegaly, no splenomegaly, no bruit, no guarding, no rigidity, tender to palpation, distended, diminished bowl sounds, voluntary guarding Hosp A/P (1) Acute hypercapnic respiratory failure Code(s): J96.02 - ACUTE RESPIRATORY FAILURE WITH HYPERCAPNIA Status: Acute (2) Acute on chronic systolic (congestive) heart failure Code(s): I50.23 - ACUTE ON CHRONIC SYSTOLIC (CONGESTIVE) HEART FAILURE Status: Acute (3) Recurrent falls Code(s): R29.6 - REPEATED FALLS Status: Acute (4) CAD (coronary artery disease) Code(s): I25.10 - ATHSCL HEART DISEASE OF [place] CORONARY ARTERY W/O ANG PCTRS Status: Chronic (5) Acute kidney injury Code(s): N17.9 - ACUTE KIDNEY FAILURE, UNSPECIFIED Status: Acute (6) Severe mitral regurgitation Code(s): I34.0 - NONRHEUMATIC MITRAL (VALVE) INSUFFICIENCY Status: Acute - Plan We will continue IV steroids. She received Lasix. There was some concern about possible aphasia however this was attributed most likely to her respiratory distress yesterday. Patient's Partida catheter will be DC'd. She will be gotten up with physical therapy. She is currently on oxygen. She did receive a few doses of Lasix. 08/29 patient appears very obtunded. We will transfer her to [facility] and start her on as needed BiPAP. I spoke with heart failure physician Dr. Watters patient's overall prognosis is very poor. Currently on milrinone. We will continue to diurese the patient. However given her metabolic alkalosis would not help her hypercapnia. Will hold off on the diuretics for now. 08/30 patient more awake today able to converse. She has agreed on hospice. I will also get the Auto[employer] rep to see if a portable AutoPap can be arranged for her. She will probably go home on a milrinone drip per heart failure. 08/31 patient will go home with hospice. PICC line placed. He is management to set up milrinone drip. Also patient will require a trilogy at home for hypercapnia.
[2020-08-31] MEDS: Atorvastatin Calcium 20 MG TAB PO SCH (22:03)
[2020-08-31] MEDS: Enoxaparin Sodium 80 MG/0.8 ML SYRINGE SC SCH (22:04)
[2020-08-31] MEDS: Amitriptyline HCl 25 MG TAB PO SCH (22:07)
[2020-09-01] MEDS: Levothyroxine Sodium 75 MCG TAB PO SCH (06:33)
[2020-09-01 07:34] LABS: BUN (Urea Nitrogen) 79 mg/dL (9.8-20.1); Calc. Creatinine Clearance 34 mL/min (70-130); Calcium 9.7 mg/dL (7.8-10.44); Glucose 143 mg/dL (83-110); Magnesium 2.4 mg/dL (1.6-2.6)
[2020-09-01 07:42] LABS: Anion Gap 13 mmol/L (10-20); Carbon Dioxide 34 mmol/L (23-31); Chloride 97 mmol/L (98-107); Potassium 5.3 mmol/L (3.5-5.1); Sodium 139 mmol/L (136-145)
[2020-09-01] MEDS ORDERED: Furosemide 40 MG/4 ML VIAL SLOW IVP PRN (07:51)
[2020-09-01] MEDS: Milrinone Lactate/D5W 20 MG in Premix Bag 1 BAG IVPB SCH ×2 (07:59→19:20)
--- NOTE | 2020-09-01 08:32 | PRG ---
DATE OF SERVICE: 09/01/2020 SUBJECTIVE: Ms. Safia Lim had a good day. She was able to get her PICC without any problems. She says she was able to ambulate a little bit. She said she was able to urinate on her own about 4-5 times. However, she refused her BiPAP at nighttime. The nurses noticed that during nighttime, her oxygen saturation would drop down to about 85%. When I walked in this morning, her oxygen saturation was 87%. She was sleepy, however, she was easy to be aroused and then she can answer question correctly afterwards. REVIEW OF SYSTEMS: GENERAL: There is no fever, chills, or productive cough. HEENT: There are no change in vision, hearing, swallowing. PULMONARY: She has a baseline short of breath. CARDIAC: There is no complaints of chest pain or syncope. GI: There is no nausea or vomiting. However, she wears a chronic colostomy. : She said she still can urinate on her own. MUSCULOSKELETAL: There is no joint or muscle pains. INTEGUMENT: There is no new skin breakdown. NEUROLOGIC: There are no new focal deficits or weaknesses. CURRENT MEDICATIONS: 1. Albuterol/ipratropium nebulizer every 4 hours. 2. Amiodarone 200 mg twice a day. 3. Amitriptyline 50 mg at bedtime. 4. Aspirin 81 mg daily. 5. Atorvastatin 20 mg at bedtime. 6. Budesonide 0.5 mg twice a day. 7. Plavix 75 mg daily. 8. Enoxaparin 70 mg subcutaneous once per day. 9. Levothyroxine 75 mcg daily. 10. Magnesium oxide 400 mg daily. 11. Toprol-XL 25 mg q.12 hours. 12. Dulera 100 mcg/5 mcg twice a day. 13. Protonix 40 mg daily. 14. Prednisone 20 mg daily. PHYSICAL EXAMINATION: Telemetry was reviewed. There is no arrhythmia recorded in the system. She is A-sensed and V-paced and there are some PVCs. Looking the charts strips, she is predominantly A-sensed and V-paced. There is occasional PVC but there are no signs of atrial fibrillation. VITAL SIGNS: Her latest vitals include heart rate 97, blood pressure 118/52. GENERAL: She is a sleepy, but then she is easily aroused. She is communicate and will answer questions correctly. HEENT: EOMI. Oropharynx is benign with dry lips. NECK: The right internal jugular central line has been removed. However, JVP is more elevated today at 14 cm, this is higher than yesterday. PULMONARY: There are bilateral crackles, much more prominent on the left. The increase in rales showed that she has increasing pulmonary edema. ABDOMEN: Soft, nontender. Positive bowel sounds. There is presence of colostomy bag in the left lower quadrant. Now she is beginning to have some abdominal presacral edema. EXTREMITIES: Lower extremity, she now is collecting fluid in her thigh. She has some thigh edema. She has a 1 cm pitting edema from feet to her knees. Thus, she is overall much more edematous today. LABORATORY VALUES: There are no new laboratory values today. ASSESSMENT: 75-year-old lady has 2 severe diseases that cannot be reversed. She has severe chronic obstructive pulmonary disease and has hypercapnia resulting in respiratory acidosis at times. She is being aggressively treated for chronic obstructive pulmonary disease exacerbation. She also has heart failure with reduced ejection fraction due to severe mitral regurgitation. [place] Heart Association stage D and likely [place] Heart Association class 4. Her presenting ejection fraction was only 20%. As such a low ejection fraction with severe mitral regurgitation in her debilitated state, she is not a candidate for any type of surgical correction. With persistent severe mitral regurgitation and low EF; this will not have a solution. Combination of tuning her pacemaker and milrinone augmentation has increased her cardiac output to increases her consciousness and some level of renal support. However, this will not last long. So, she is best served with hospice. Now she has reached edematous state where she needs to be diuresed. If she does not diurese today, she will likely to run into respiratory issues due to CHF. Please see the following for my recommendations. RECOMMENDATIONS: 1. Please do stat labs to check her BMP and magnesium. This will provide information on her electrolytes and renal functions. 2. Once her morning labs are done, please give her furosemide 80 mg IV one dose, this has been proven effective in the past. In the past, 40 mg IV did not produce good enough results. 3. Continue milrinone at 0.5 mcg/kg/minute. 4. Continue combination of Toprol-XL 25 mg twice a day and also amiodarone 200 mg twice a day to suppress atrial fibrillation and ventricular tachycardia has been working. 5. If all possible, keep potassium above 4 and magnesium above 2. 6. She will need to be examined on daily basis to see how much diuretics she needs. Alternatively, after the IV Lasix today, she could be given oral diuretics such as Bumex 1 mg daily for maintenance. Finally help her to establish outpatient hospice care. It has been a pleasure taking care of Ms. Safia Lim. If any questions, please give me a call. I have already extended beyond my own service dates. Today, I have to sign off to return to my other work. The total visitation time today is 40 minutes. Job ID: [id number] [facility]
[2020-09-01] MEDS: Budesonide 0.5 MG/2 ML NEB NEB SCH ×2 (08:37→20:04)
[2020-09-01] MEDS: Mometasone 100 MCG/Formoterol 5 MCG 120 PUFF INHALER INH SCH ×2 (08:39→20:01)
--- NOTE | 2020-09-01 09:13 | PDOC.PALCO ---
Palliative Care Consult - Consult Details Requesting Physician: Dr Watters Reason for Consult: goals of care, complex decision-making Family Members Present: none - Pertinent HPI 75-year-old female for palliative care consult for goals of care and complex medical decision making. She lives remotely in [place] with her who is also quite fragile. Her primary caregiver and assistance is from her friend Fahad. She does have a sister Emma in [place] who she would like to have as her medical power of immigration attorney and decision maker. She has 1 child Danielle who is not involved in her medical care. I have visited at her bedside and she was alert and oriented and verbally appropriate. She seems to have good insight into her medical needs. She does express a strong desire to go back to her home but she will consent to assistance by hospice organization. She is tolerating nasal cannula well and it does not appear that she will need Trilogy apparatus for oxygen delivery with pressure support. She does agree to accept a CPAP machine for her obstructive sleep apnea at night. She is currently on milrinone infusion at 0.5 mcg/kg/h per PICC line. Spoke with home health franchise sales representative from [facility] and updated them on her needs for assistance with milrinone infusion in the home setting and obtaining CPAP for nighttime use. She had a 6 to 7 weeks progression of her shortness of breath and lower extremity edema to the point where she had orthopnea. She was brought to the hospital by her family members. Her EF 1 year ago was about 40 to 45%. She also has a colostomy which she has had for 10 to 12 years secondary to colectomy for diverticulitis. She does have a history of a mitral valve clip approximately 1 year ago. She was admitted to telemetry for diuresis and inotrope therapy. - Pertinent PMH Hyperlipidemia, hypertension, coronary artery disease, COPD, chronic systolic heart failure, and gastric esophageal reflux disease - Social History Smoking Status: Never smoker Smoking: no tobacco exposure Alcohol Use: none Drug Use History: none Living Situation: - Medications MAR Reviewed: Yes - Allergies Allergies/Adverse Reactions: Allergies Allergy/AdvReac Type Severity Reaction Status Date / Time codeine Allergy Intermediate itching Verified 11/08/19 21:55 morphine Allergy Intermediate Rash Verified 11/08/19 21:55 - ROS Constitutional: alert Respiratory: shortness of breath with extertion Cardiology: edema Neurological: weakness - Objective Vital Signs: Vital Signs - Most Recent Temp Pulse Resp BP Pulse Ox 97.9 F 95 18 113/58 L 100 09/01/20 08:03 09/01/20 08:03 09/01/20 08:03 09/01/20 08:03 09/01/20 08:03 - Advance Directives Medical Power of Coffee Brewer: Kale Carter Specific Directives: DNAR,OOH DNR - Physical Exam Constitutional: NAD HEENT: EOMI, moist MMs, oral pharynx no lesions, PERRLA, sclera anicteric Respiratory: no wheezing, no rales, no rhonchi, clear to auscultation bilateral, unlabored breathing Cardiovascular: RRR, diminished peripheral pulses Deviation from normal: holosystolic RUBY 10/23 Gastrointestinal: colostomy Genitourinary: gallo catheter Musculoskeletal: no cyanosis, no clubbing, pulses present Deviation from normal: 2 pitting edema to knees Neurology: moves all 4 limbs, no focal deficits, normal sensation, normal speech Skin: cap refill <2 seconds Psychiatric: A&O x 3, normal affect, normal mood - Problem List (1) Acute kidney injury Code(s): N17.9 - ACUTE KIDNEY FAILURE, UNSPECIFIED Current Visit: Yes Status: Acute Assessment: Improving- creat 1.59, BUN 79, GFR 30, K on milrinone 0.5 mcg/kg/h (2) Acute on chronic systolic (congestive) heart failure Code(s): I50.23 - ACUTE ON CHRONIC SYSTOLIC (CONGESTIVE) HEART FAILURE Current Visit: Yes Status: Acute (3) Severe mitral regurgitation Code(s): I34.0 - NONRHEUMATIC MITRAL (VALVE) INSUFFICIENCY Current Visit: Yes Status: Chronic Comments: Had Mitral Valve Clip 1 year ago (4) Acute hypercapnic respiratory failure Code(s): J96.02 - ACUTE RESPIRATORY FAILURE WITH HYPERCAPNIA Current Visit: Yes Status: Acute Assessment: Is improving- tolerating O2 per nasla cannula at 2 L with O2 sta 94%- able to speak full sentences without dyspnea - Plan/Recommendations Plan: Discussed patient's wishes to return to home with Hospice to assist with milrinone drip with [facility]- they will assess their abilty to provide this care along with CPap for [facility]-given name and number of milrinine infusion company- instructed to contact Dr Watters for further instructions on inotrope infusion 90 minutes spent on this encounter with >50% of the time in counseling and coordination of care. Thank you for this very appropriate consult.
--- NOTE | 2020-09-01 10:27 | PRG ---
DATE OF SERVICE: SUBJECTIVE: Ms. Lim is more awake and alert. Not having chest pain or pressure, but she is extremely edematous. She had a PICC line placed yesterday. OBJECTIVE: VITAL SIGNS: Blood pressure 113/58, pulse 95. LUNGS: Clear anteriorly and laterally. CARDIAC: She has an apical systolic murmur of mitral regurgitation. ABDOMEN: Soft, nontender. EXTREMITIES: Severe edema. ASSESSMENT: 1. The patient is currently volume overloaded. 2. Congestive heart failure, systolic and diastolic mixed, mostly systolic. 3. Severe mitral regurgitation. 4. Renal failure. PLAN: 1. Continue diuresis. 2. May need to reduce beta kevin dose. 3. Some attempts were being made to try to arrange for outpatient Milrinone with hospice. Job ID: [id number]
[2020-09-01] MEDS: Clopidogrel Bisulfate 75 MG TAB PO SCH (10:30)
[2020-09-01] MEDS: Amiodarone 200 MG TAB PO SCH ×2 (10:30→22:08)
[2020-09-01] MEDS: predniSONE 20 MG TAB PO SCH (10:30)
[2020-09-01] MEDS: Magnesium Oxide 400 MG TAB PO SCH (10:30)
[2020-09-01] MEDS: Aspirin Chewable 81 MG TAB PO SCH (10:30)
--- NOTE | 2020-09-01 14:25 | PDOC.HOSPP ---
- Subjective Encounter Date: 09/01/20 Encounter Time: 12:30 Subjective: In bed no complaints. - Objective Vital Signs & Weight: Vital Signs (12 hours) Temp Pulse Pulse Pulse Resp BP BP 09/01/20 11:48 98 F 96 18 09/01/20 11:13 91 20 09/01/20 09:48 92 91 113/53 L 115/62 09/01/20 08:03 97.9 F 95 18 09/01/20 04:00 98.5 F 98 16 09/01/20 03:25 BP BP Pulse Ox Pulse Ox Pulse Ox 09/01/20 11:48 122/59 L 94 L 09/01/20 11:13 99 09/01/20 09:48 95 98 09/01/20 08:03 113/58 L 100 09/01/20 04:00 107/50 L 98 09/01/20 03:25 94 L Weight Admit Weight 138 lb 1.6 oz Weight 151 lb 9 oz Most Recent Monitor Data Heart Rate from ECG 93 NIBP 106/49 NIBP BP-Mean 68 Respiration from ECG 21 SpO2 94 I&O: 08/31/20 09/01/20 09/02/20 06:59 06:59 06:59 Intake Total 1550 1180 Output Total 850 300 Balance 700 880 Result Diagrams: 08/31/20 04:59 09/01/20 07:04 Additional Labs: Accuchecks 09/01/20 09/01/20 08/31/20 10:46 05:31 21:42 POC Glucose 135 H 143 H 170 H 08/31/20 08/31/20 15:43 15:19 POC Glucose 144 H 123 H Hospitalist ROS - Review of Systems Cardiovascular: denies: chest pain, palpitations, orthopnea, paroxysmal noc. dyspnea, edema, light headedness, other Gastrointestinal: denies: nausea, vomiting, abdominal pain, diarrhea, constipation, melena, hematochezia, other Genitourinary: denies: dysuria, frequency, incontinence, hematuria, retention, other - Medication Medications: Active Medications Generic Name Dose Route Start Last Admin Trade Name Freq PRN Reason Stop Dose Admin Albuterol/Ipratropium 3 ml 08/26/20 22:30 09/01/20 11:13 Ipratropium/Albuterol Sulfate 3 Ml Neb NEB 3 ml [id number] ROHINI Administration Amiodarone HCl 200 mg 08/27/20 21:00 09/01/20 10:30 Amiodarone 200 Mg Tab PO 200 mg BID ROHINI Administration Amitriptyline HCl 50 mg 08/30/20 21:00 08/31/20 22:07 Amitriptyline Hcl 25 Mg Tab PO 50 mg HS ROHINI Administration Aspirin 81 mg 08/26/20 09:00 09/01/20 10:30 Aspirin Chewable 81 Mg Tab PO 81 mg DAILY ROHINI Administration Atorvastatin Calcium 20 mg 08/26/20 21:00 08/31/20 22:03 Atorvastatin Calcium 20 Mg Tab PO 20 mg HS ROHINI Administration Budesonide 0.5 mg 08/27/20 06:30 09/01/20 08:37 Budesonide 0.5 Mg/2 Ml Neb NEB Not Given BID-RT ROHINI Clopidogrel Bisulfate 75 mg 08/26/20 09:00 09/01/20 10:30 Clopidogrel Bisulfate 75 Mg Tab PO 75 mg DAILY ROHINI Administration Dextrose/Water 25 gm 08/24/20 15:34 08/25/20 10:54 Dextrose 50% Abboject 50 Ml Syringe SLOW IVP 25 gm PRN PRN Administration Hypoglycemia Milrinone Lactate/Dextrose 20 100 mls @ 9.525 mls/hr 08/26/20 20:00 09/01/20 07:59 mg/ Device IVPB 100 mls INF ROHINI Administration Protocol 0.5 MCG/KG/MIN Insulin Human Lispro 0 units 08/24/20 15:34 08/30/20 18:21 Humalog 300 Units/3 Ml Vial SC 2 unit .MODERATE SLIDING SC PRN Administration Moderate Correctional Scale Levothyroxine Sodium 75 mcg 08/27/20 06:00 09/01/20 06:33 Levothyroxine Sodium 75 Mcg Tab PO 75 mcg 0600 ROHINI Administration Magnesium Oxide 400 mg 08/28/20 09:00 09/01/20 10:30 Magnesium Oxide 400 Mg Tab PO 400 mg DAILY ROHINI Administration Metoprolol Succinate 25 mg 08/27/20 21:00 09/01/20 10:30 Metoprolol Succinate Xl 25 Mg Tab PO 25 mg Q12HR ROHINI Administration Mometasone Furoate/Formoterol Fumar 1 puff 08/26/20 18:30 09/01/20 08:39 Mometasone 100 Mcg/Formoterol 5 Mcg 120 Puff Inhaler INH Not Given BID-RT ROHINI Pantoprazole Sodium 40 mg 08/31/20 09:00 09/01/20 10:30 Pantoprazole 40 Mg Tab PO 40 mg DAILY ROHINI Administration Prednisone 20 mg 08/31/20 09:00 09/01/20 10:30 Prednisone 20 Mg Tab PO 20 mg DAILY ROHINI Administration Sodium Chloride 10 ml 08/29/20 21:00 09/01/20 10:31 Flush - Normal Saline 10 Ml Syringe IVF 10 ml Q12HR ROHINI Administration - Exam Neck: negative: supple, symmetric, no JVD, no thyromegaly, no lymphadenopathy, no carotid bruit, JVD Heart: negative: RRR, no murmur, no gallops, no rubs, normal peripheral pulses, irregular, diminshed peripheral pulses, murmur present, II/IV, III/IV Respiratory: negative: CTAB, no wheezes, no rales, no ronchi, normal chest expansion, no tachypnea, normal percussion, rales, rhonchi, tachypneic, wheezes Gastrointestinal: negative: soft, non-tender, non-distended, normal bowel sounds, no palpable masses, no hepatomegaly, no splenomegaly, no bruit, no guarding, no rigidity, tender to palpation, distended, diminished bowl sounds, voluntary guarding Hosp A/P (1) Acute hypercapnic respiratory failure Code(s): J96.02 - ACUTE RESPIRATORY FAILURE WITH HYPERCAPNIA Status: Acute (2) Acute on chronic systolic (congestive) heart failure Code(s): I50.23 - ACUTE ON CHRONIC SYSTOLIC (CONGESTIVE) HEART FAILURE Status: Acute (3) Recurrent falls Code(s): R29.6 - REPEATED FALLS Status: Acute (4) CAD (coronary artery disease) Code(s): I25.10 - ATHSCL HEART DISEASE OF [place] CORONARY ARTERY W/O ANG PCTRS Status: Chronic (5) Acute kidney injury Code(s): N17.9 - ACUTE KIDNEY FAILURE, UNSPECIFIED Status: Acute (6) Severe mitral regurgitation Code(s): I34.0 - NONRHEUMATIC MITRAL (VALVE) INSUFFICIENCY Status: Chronic - Plan We will continue IV steroids. She received Lasix. There was some concern about possible aphasia however this was attributed most likely to her respiratory distress yesterday. Patient's Partida catheter will be DC'd. She will be gotten up with physical therapy. She is currently on oxygen. She did receive a few doses of Lasix. 08/29 patient appears very obtunded. We will transfer her to [facility] and start her on as needed BiPAP. I spoke with heart failure physician Dr. Watters patient's overall prognosis is very poor. Currently on milrinone. We will continue to diurese the patient. However given her metabolic alkalosis would not help her hypercapnia. Will hold off on the diuretics for now. 08/30 patient more awake today able to converse. She has agreed on hospice. I will also get the Auto[employer] rep to see if a portable AutoPap can be arranged for her. She will probably go home on a milrinone drip per heart failure. 08/31 patient will go home with hospice. PICC line placed. He is management to set up milrinone drip. Also patient will require a trilogy at home for hypercapnia. 09/01 patient will be going home with hospice. Spoke with the hospice rep resentative. PICC line placed.
[2020-09-01] MEDS: HumaLOG 300 UNITS/3 ML VIAL SC PRN (16:56)
[2020-09-01] MEDS ORDERED: Furosemide 40 MG/4 ML VIAL SLOW IVP SCH (18:00)
[2020-09-01] MEDS: Atorvastatin Calcium 20 MG TAB PO SCH (22:08)
[2020-09-01] MEDS: Amitriptyline HCl 25 MG TAB PO SCH (22:08)
[2020-09-02] MEDS: Milrinone Lactate/D5W 20 MG in Premix Bag 1 BAG IVPB SCH ×2 (04:58→11:02)
[2020-09-02] MEDS: Levothyroxine Sodium 75 MCG TAB PO SCH (04:59)
[2020-09-02 05:58] LABS: #Lymphocytes 0.4 thou/uL (1.20-3.40); #Monocytes 0.6 thou/uL (0.11-0.59); #Neutrophils 5.6 thou/uL (1.40-6.50); %Basophils 0.1 % (0.0-1.0); %Eosinophils 0.2 % (0.0-10.0); %Lymphocytes 6.1 % (21.0-51.0); %Monocytes 9.1 % (0.0-10.0); %Neutrophils 84.4 % (42.0-75.0); Hemoglobin 8.9 g/dL (12.0-16.0); Mean Corpuscular HGB CONC 29.6 g/dL (32.0-36.0); Mean Corpuscular Hemoglobin 25.1 pg (27.0-31.0); Mean Corpuscular Volume 84.8 fL (78.0-98.0); Mean Platelet Volume 9.5 fL (7.4-10.4); Platelet Count 196 thou/uL (130-400); RBC Distribution Width 15.3 % (11.5-14.5); Red Blood Cell (RBC) Count 3.52 mill/uL (4.20-5.40); White Blood Cell (WBC) Count 6.6 thou/uL (4.8-10.8)
[2020-09-02 06:17] LABS: BUN (Urea Nitrogen) 74 mg/dL (9.8-20.1); Calc. Creatinine Clearance 34 mL/min (70-130); Calcium 9.6 mg/dL (7.8-10.44); Glucose 141 mg/dL (83-110)
[2020-09-02 06:27] LABS: Anion Gap 16 mmol/L (10-20); Carbon Dioxide 34 mmol/L (23-31); Chloride 94 mmol/L (98-107); Potassium 5.1 mmol/L (3.5-5.1); Sodium 139 mmol/L (136-145)
[2020-09-02] MEDS: Budesonide 0.5 MG/2 ML NEB NEB SCH (07:13)
[2020-09-02] MEDS: Mometasone 100 MCG/Formoterol 5 MCG 120 PUFF INHALER INH SCH (07:24)
[2020-09-02] MEDS: Aspirin Chewable 81 MG TAB PO SCH (09:25)
[2020-09-02] MEDS: Amiodarone 200 MG TAB PO SCH (09:25)
[2020-09-02] MEDS: Clopidogrel Bisulfate 75 MG TAB PO SCH (09:25)
[2020-09-02] MEDS: predniSONE 20 MG TAB PO SCH (09:25)
[2020-09-02] MEDS: Magnesium Oxide 400 MG TAB PO SCH (09:25)
[2020-09-02] MEDS ORDERED: Iron, Sodium Ferric Gluconate 250 MG in Sodium Chloride 0.9% 100 ML IVPB SCH (10:00)
[2020-09-02] MEDS ORDERED: Furosemide 100 MG/10 ML VIAL SLOW IVP SCH (13:45)
--- NOTE | 2020-09-02 13:55 | PRG ---
DATE OF SERVICE: 09/02/2020 SUBJECTIVE: Ms. Lim is resting comfortably. She is not short of breath at rest. OBJECTIVE: VITAL SIGNS: Her blood pressure is 98/54, pulse 90. LUNGS: Clear. CARDIAC: Normal S1, normal S2. No new murmur, rub, or gallop. Still has mitral regurgitation murmur. EXTREMITIES: She has severe edema. ASSESSMENT: 1. Congestive heart failure, systolic and diastolic mixed, mostly systolic now. 2. Mitral regurgitation. 3. Volume overload. PLAN: 1. Give her a dose of Lasix 80 mg now, then 40 mg twice a day. 2. Monitor kidney function. 3. Prognosis poor, extremely volume overloaded currently. Job ID: [id number]
[2020-09-02] MEDS ORDERED: Furosemide 40 MG/4 ML VIAL SLOW IVP SCH (14:00)
[2020-09-02 15:28] VITALS: BP 118/61; TEMP 98.2
--- NOTE | 2020-09-04 11:47 | EKG ---
Test Reason : Blood Pressure : / mmHG Vent. Rate : 122 BPM Atrial Rate : 122 BPM P-R Int : 130 ms QRS Dur : 126 ms QT Int : 336 ms P-R-T Axes : 075 -11 088 degrees QTc Int : 478 ms Electronic ventricular pacemaker Confirmed by KELVIN SOUSA M.D. ([id number]), managing editor LETY MCCAIN ([id number]) on 09/04/2020 11:47:15 AM Referred By: Confirmed By:KELVIN SOSUA M.D.
== END 2020-09-02 14:45 | disposition hospice, home (50) | DRG 280 ==
LOC: ERS 12:57 → 2NO 14:39 → OBSVTOIN 15:34 → CCU 08-26 17:55 → 2NO 08-27 14:07 → 2SE 08-29 16:48
PROVIDERS: ADMIT Internal Medicine; ATTEND Internal Medicine
PROC: 02HV33Z Insertion of Infusion Device into Superior Vena Cava, Percutaneous Approach (ICD-10-PCS; principal; 2020-08-26)
PROC: B548ZZA Ultrasonography of Superior Vena Cava, Guidance (ICD-10-PCS; 2020-08-26)
DX: I13.0 Hypertensive heart and chronic kidney disease with heart failure and stage 1 through stage 4 chronic kidney disease, or unspecified chronic kidney disease (principal); I21.4 Non-ST elevation (NSTEMI) myocardial infarction; I50.23 Acute on chronic systolic (congestive) heart failure; J96.00 Acute respiratory failure, unspecified whether with hypoxia or hypercapnia; G93.41 Metabolic encephalopathy; J96.22 Acute and chronic respiratory failure with hypercapnia; N17.9 Acute kidney failure, unspecified; G45.9 Transient cerebral ischemic attack, unspecified; R47.01 Aphasia; N18.4 Chronic kidney disease, stage 4 (severe); I47.2 Ventricular tachycardia; Z51.5 Encounter for palliative care; Z66 Do not resuscitate; J44.1 Chronic obstructive pulmonary disease with (acute) exacerbation; I42.9 Cardiomyopathy, unspecified; Z96.653 Presence of artificial knee joint, bilateral; F17.210 Nicotine dependence, cigarettes, uncomplicated; E78.00 Pure hypercholesterolemia, unspecified; I25.10 Atherosclerotic heart disease of native coronary artery without angina pectoris; Z20.822 Contact with and (suspected) exposure to COVID-19; K21.9 Gastro-esophageal reflux disease without esophagitis; M10.9 Gout, unspecified; I34.0 Nonrheumatic mitral (valve) insufficiency; I48.0 Paroxysmal atrial fibrillation; E11.22 Type 2 diabetes mellitus with diabetic chronic kidney disease; R29.6 Repeated falls; Z95.1 Presence of aortocoronary bypass graft; Z86.73 Personal history of transient ischemic attack (TIA), and cerebral infarction without residual deficits; I25.2 Old myocardial infarction; Z90.710 Acquired absence of both cervix and uterus; Z98.51 Tubal ligation status; Z95.4 Presence of other heart-valve replacement; Z88.6 Allergy status to analgesic agent; Z79.82 Long term (current) use of aspirin; Z79.899 Other long term (current) drug therapy; Z79.890 Hormone replacement therapy; Z79.01 Long term (current) use of anticoagulants; Z90.49 Acquired absence of other specified parts of digestive tract; Z93.3 Colostomy status
CPT/HCPCS: 0240U; 36415; 36416; 36569; 36600; 70450; 71045; 71250; 80048; 80053; 82553; 82728; 82805; 83605; 83735; 83880; 84484; 85025; 93005; 93306; 93798; 93880; 94640; 94660; 94760; 95712; 95819; 95957; 96374; C1751; J0282; J1644; J1650; J1940; J2001; J2260; J2916; J2920; J3475; J3490; J7070; J7512; J7620; J7626